=== PATIENT | female | born 1945 ===

== ENCOUNTER 2024-11-19 11:58 | Inpatient (IN) ==
[2024-11-19] MEDS ORDERED: SODIUM CHLORIDE 0.9% 50 ML IV PRN ×2 (12:41→12:50)
[2024-11-19] MEDS ORDERED: SODIUM CHLORIDE 0.9% 100 ML IV PRN ×2 (12:41→12:50)
[2024-11-19 12:47] LABS: Basophils # (auto) 0.07 K/uL (0.00-0.20); Basophils % (auto) 0.6 %; Eosinophils # (auto) 0.17 K/uL (0.00-0.50); Eosinophils % (auto) 1.6 %; Hematocrit (blood only) 23.4 % (37.0-47.0); Hemoglobin 7.2 g/dl (12.0-16.0); Immature Granulocytes # (auto) 0.04 K/uL (0.01-0.20); Immature Granulocytes % (auto) 0.4 %; Lymphocytes # (auto) 1.74 K/uL (1.20-3.40); Mean Corpuscular Hemoglobin 26.2 pg (25.0-34.0); Mean Corpuscular Hgb Conc 30.8 g/dL (32.0-36.0); Mean Corpuscular Volume 85.1 fL (80.0-100.0); Mean Platelet Volume 11.5 fL (9.4-12.4); Monocytes # (auto) 1.35 K/uL (0.11-0.59); Monocytes % (auto) 12.4 %; Neutrophils # (auto) 7.51 K/uL (1.40-6.50); Platelet Count 239 K/uL (130-400); RDW Coefficient of Variation 14.1 % (11.5-14.5); RDW Standard Deviation 43.5 fL (36.4-46.3); Red Blood Count 2.75 M/uL (4.20-5.40); White Blood Count 10.88 K/ul (4.8-10.8)
[2024-11-19 12:49] LABS: iSTAT Creatinine 1.3 mg/dl (0.6-1.3); iSTAT Hemoglobin 7.5 g/dl (12.0-16.0); iSTAT Ionized Calcium 1.11 mmol/l (1.12-1.32); iSTAT Potassium 3.5 mmol/L (3.3-5.0)
--- NOTE | 2024-11-19 12:49 | Emergency Department Note ---
Impression & Plan Dizziness, Acute GI bleeding, Weakness, Anemia, Heme positive stool, Anticoagulated on Coumadin ED Provider Note NAME: REBEKAH BORGES AGE: 79 SEX: F : 1945 ARRIVES VIA: Walk-In INFORMANT: [Patient][] ED PROVIDER(S): [Jim Desouza MD] CHIEF COMPLAINT: Rectal bleeding HISTORY OF PRESENT ILLNESS: The patient is an 79-year-old female with A-fib on warfarin who states that she has had symptoms for around 10 days in total. She initially went to the [facility] as her heart rate was a bit quick. She spent about 4 days at the hospital. At discharge, her hemoglobin was 8.2, INR was 6.4. The patient has been home for 3 days and has felt worse than when she went to the hospital. She is dizzy, she is weak, she is especially weak with exertion and short of breath with exertion. She states that she has had continued black discolored stools. She has been belching a lot. No chest pain, no abdominal pain or vomiting. No fever. The patient's grandson is a PA, the lab results from her discharge were reviewed by the grandson and there was concern because the hemoglobin was so low, they were referred to our ER. Of note, the patient states that yesterday, she had her INR checked outpatient and it was 4.7. She states that she has been holding her warfarin for the last 3 days. PMHx/PSHx/Social Hx: See Below PHYSICAL EXAM: GENERAL: Patient is in no acute distress. HEENT: No acute trauma, normocephalic atraumatic, mucous membranes moist, no nasal congestion. NECK: No stridor, no adenopathy, no meningismus, trachea is midline. LUNGS: Clear to auscultation bilaterally, no wheeze, no rhonchi, breath sounds equal. HEART: Without murmurs gallops or rubs, regular rate and rhythm. ABDOMEN: Soft, nontender, no peritonitis. EXTREMITIES: No cyanosis, full range of motion of all the joints without pain or difficulty. Mild bilateral pedal edema NEUROLOGIC: Oriented x 3, no acute motor or sensory deficits, no focal weakness. SKIN: No diaphoresis. Rectal: Black stool, strongly heme positive. DIFFERENTIAL DIAGNOSIS: GI bleeding, ulcer, anemia, coagulopathy, electrolyte imbalance, PR, among others. EMERGENCY DEPARTMENT PROCEDURES: MEDICAL DECISION MAKING: There is a very subtle anemia, this could be consistent with infection or just the stress of her situation. Hemoglobin was low at 7.2, this is below the value at her time of discharge from [facility]. There was a normal platelet count. INR was elevated at 2.8, consistent with the warfarin use. No electrolyte abnormality or concerning renal failure. No concerning liver enzyme elevation. No evidence for pancreatitis. ECG showed a sinus tachycardia, no obvious acute ischemia. Cardiac enzyme testing x 1 was not consistent with acute cardiac injury. Chest x-ray did not show CHF or pneumonia. On exam, the patient was mildly tachycardic. Rectal exam was performed, the stool was black and heme positive. Patient was aggressively managed given her presentation and findings. Patient was given a 500 cc saline bolus. She received IV vitamin K, IV Kcentra, IV Protonix and IV Zofran. I did discuss the case with our coagulation automotive internet sales consultant, vitamin K and Kcentra were felt appropriate. I spoke with the patient and her . The patient feels poorly because of her anemia, the anemia appears to be a result of GI bleeding. The GI bleeding has been made worse with her warfarin anticoagulation. The patient is in need of a hospital stay. I did have the patient sign consent for a blood transfusion. 1 unit of packed red blood cells was ordered for transfusion. I spoke with case management, the on-call hospitalist was consulted. Prior/Outside records/notes reviewed: [facility] outpatient notes from patient's recent hospitalization describing her findings and plan outpatient ECG per my interpretation: Indication was weakness. The ECG shows a sinus tachycardia with a rate of 104. There is a right bundle branch block. There is an old inferior infarct. There is no acute ST elevation, no PVCs. QTc is 512. Continuous Cardiac Monitoring per my interpretation: An order was placed for continuous cardiac monitoring. The monitor shows a rate of 101 with sinus tachycardia. Imaging/x-ray results per my interpretation: Chest x-ray shows elevation to the left hemidiaphragm, no CHF or pneumonia. Chronic Medical/Social conditions affecting care: Warfarin use, recent hospitalization, advanced age. Care/Management discussed with: Case management, the on-call hospitalist. Coagulation consult-Dr. Gallardo Level of care consideration(s): After review of the information above and other included data: --I believe the patient requires escalation of care to admission Critical Care Note: I have personally spent 54 minutes of critical care time in the direct management of this patient. This includes bedside care, interpretation of diagnostic studies, and testing, discussion with consultants, patient, and family members, and other required patient management activities. This 54 minutes is in excess of all separately billable procedures. DISPOSITION: Admission Past Med/Surg History Problem List Paroxysmal atrial fibrillation Acute gastrointestinal bleeding Acute blood loss anemia Vertebral artery stenosis Carotid artery stenosis SNHL (sensorineural hearing loss) Polyneuropathy Dysequilibrium Ataxia Decreased ROM of neck Neck pain PVD (peripheral vascular disease) Dizziness Gait disturbance Medical History History of gastroesophageal reflux (GERD) History of depression History of anxiety History of PR (myocardial infarction) History of diabetes mellitus History of stroke Heart attack Amputated toe Surgical History (Updated 02/15/23 @ 13:50 by Irma Mcdonald) S/P angioplasty with stent Mitral valve replaced Family History (Updated 02/15/23 @ 13:54 by Irma Mcdonald) Father Stroke Mother Heart disease Diabetes Sister Depression Anxiety Brother Diabetes Myocardial infarction Stroke Grandmother (Paternal) Dementia Anxiety Social History Smoking Status: Former smoker Tobacco Type: Cigarettes Cigarettes Per Day: 8/; Hx Alcohol Use: No Hx Substance Use: No Preferred Language: Maltese current occupational status: retired Feels Safe at Home: Yes Allergies Allergies Allergy/AdvReac Type Severity Reaction Status Date / Time sertraline [From Zoloft] Allergy Intermediate Nausea Verified 11/19/24 14:13 atorvastatin [From Lipitor] Allergy Unknown Muscle Pain Verified 11/19/24 14:13 azithromycin [From Zithromax] Allergy Unknown Nausea Verified 11/19/24 14:13 codeine Allergy Unknown Confusion Verified 11/19/24 14:13 gentamicin Allergy Unknown Verified 11/19/24 14:13 insulin detemir Allergy Unknown Anxiety Verified 11/19/24 14:13 [From Levemir U-100 Insulin] levofloxacin Allergy Unknown Verified 11/19/24 14:13 linezolid Allergy Unknown Verified 11/19/24 14:13 Sulfa (Sulfonamide Allergy Unknown Difficulty Verified 11/19/24 14:13 Antibiotics) Swallowing Penicillins Allergy Rash Verified 11/19/24 14:13 valium Allergy Unknown Unknown Uncoded 11/19/24 14:13 muscle relaxant AdvReac Severe Hallucinati Uncoded 11/19/24 14:13 ng Home Meds Home Medications Medication Instructions Recorded Confirmed furosemide 40 mg tablet 40 mg PO QAM 02/15/23 11/19/24 lorazepam 1 mg tablet See Rx Instructions .Route .COMPLEX 02/15/23 11/19/24 metoprolol succinate 25 mg 12.5 mg PO QAM 02/15/23 11/19/24 tablet,extended release 24 hr potassium chloride 10 mEq 10 meq PO BID 02/15/23 11/19/24 capsule,extended release warfarin 3 mg tablet (Jantoven) See Rx Instructions .Route .COMPLEX 02/15/23 11/19/24 insulin glargine 100 unit/mL (3 8 unit subcut QPM 02/19/23 11/19/24 mL) subcutaneous pen (Lantus Solostar U-100 Insulin) insulin lispro 100 unit/mL See Rx Instructions subcut .COMPLEX 02/19/23 11/19/24 subcutaneous pen (Humalog KwikPen (U-100) Insulin) aspirin 81 mg tablet,delayed 81 mg PO QAM 11/19/24 11/19/24 release lorazepam 0.5 mg tablet See Rx Instructions .Route .COMPLEX 11/19/24 11/19/24 warfarin 4 mg tablet See Rx Instructions .Route .COMPLEX 11/19/24 11/19/24 Results & Data (ED) Vital Signs Vital Signs - 24 hr 11/19/24 12:12 11/19/24 12:49 11/19/24 13:00 Temperature 36.5 C Temperature Source Temporal Artery Scan Pulse Rate 101 H 108 H 100 H Pulse Rhythm Pulse Strength Respiratory Rate 18 20 Respiratory Effort / Characteristics Non-Labored Spontaneous Respiratory Depth Normal Blood Pressure 116/55 L 147/67 H Blood Pressure Mean 75 105 Blood Pressure Position Pulse Oximetry 95 97 Oxygen Delivery Method Room Air Room Air Sepsis Recent Fever Within 48 Hours No Sepsis New/Unexplained Change in Mental Status N/A Sepsis Action Taken by Nursing No Action Required 11/19/24 13:53 11/19/24 14:19 11/19/24 14:35 Temperature 36.7 C 36.7 C Temperature Source Oral Oral Pulse Rate 95 H 101 H 97 H Pulse Rhythm Regular Pulse Strength Normal Respiratory Rate 20 16 18 Respiratory Effort / Characteristics Respiratory Depth Blood Pressure 130/93 130/93 142/75 H Blood Pressure Mean 107 105 97 Blood Pressure Position Lying Pulse Oximetry 97 97 95 Oxygen Delivery Method Room Air Sepsis Recent Fever Within 48 Hours Sepsis New/Unexplained Change in Mental Status Sepsis Action Taken by Nursing 11/19/24 14:50 Temperature 36.8 C Temperature Source Oral Pulse Rate 96 H Pulse Rhythm Pulse Strength Respiratory Rate 19 Respiratory Effort / Characteristics Respiratory Depth Blood Pressure 146/71 H Blood Pressure Mean 96 Blood Pressure Position Pulse Oximetry 97 Oxygen Delivery Method Sepsis Recent Fever Within 48 Hours Sepsis New/Unexplained Change in Mental Status Sepsis Action Taken by Jail Medications Current Medication List: was personally reviewed by me Laboratory Data Attestation: I reviewed the patient's lab results. 11/19/24 12:25 11/19/24 12:25 Lab Results 11/19/24 11/19/24 11/19/24 Range/Units 12:25 12:37 12:46 WBC 10.88 H (4.8-10.8) K/ul RBC 2.75 L (4.20-5.40) M/uL Hgb 7.2 L (12.0-16.0) g/dl POC Hgb 7.5 L (12.0-16.0) g/dl Hct 23.4 L (37.0-47.0) % POC Hct 22 L (37-47) % MCV 85.1 (80.0-100.0) fL MCH 26.2 (25.0-34.0) pg MCHC 30.8 L (32.0-36.0) g/dL RDW Std Deviation 43.5 (36.4-46.3) fL RDW Coeff of [place] 14.1 (11.5-14.5) % Plt Count 239 (130-400) K/uL MPV 11.5 (9.4-12.4) fL Immature Gran % (Auto) 0.4 % Neut % (Auto) 69.0 % Lymph % (Auto) 16.0 % [place] % (Auto) 12.4 % Eos % (Auto) 1.6 % Baso % (Auto) 0.6 % Neut # (Auto) 7.51 H (1.40-6.50) K/uL Lymph # (Auto) 1.74 (1.20-3.40) K/uL [place] # (Auto) 1.35 H (0.11-0.59) K/uL Eos # (Auto) 0.17 (0.00-0.50) K/uL Baso # (Auto) 0.07 (0.00-0.20) K/uL Immature Gran # (Auto) 0.04 (0.01-0.20) K/uL Polychromasia 1+ PT 27.6 H (9.0-12.0) Seconds INR 2.8 H (0.9-1.1) APTT 48 H (21-31) Seconds PTT Ratio 1.8 POC Sodium 137 (135-144) mmol/L Sodium 136 (136-145) mmol/L POC Potassium 3.5 (3.3-5.0) mmol/L Potassium 3.7 (3.5-5.1) mmol/L POC Chloride 100 L (101-112) mmol/L Chloride 101 (98-107) mmol/L Carbon Dioxide 27 (21-32) mmol/L POC Total CO2 25 (24-31) mmol/L Anion Gap 8 (3-11) POC Anion Gap 16.0 (16-25) mmol/L POC BUN 15 (7-18) mg/dl BUN 17 (6-23) mg/dl Creatinine 1.26 H (0.6-1.2) mg/dl POC Creatinine 1.3 (0.6-1.3) mg/dl Est Cr Clr Drug Dosing Not Reportable eGFR 43.16 BUN/Creatinine Ratio 13.5 (10-20) Glucose 200 H (70-99(Fasting)) mg/dl POC Glucose (other) 206 H (70-99) mg/dl Calcium 8.7 (8.6-10.3) mg/dl POC Ioniz Calcium Velia 1.11 L (1.12-1.32) mmol/l Total Bilirubin 0.4 (0.2-1.0) mg/dl AST 11 L (13-39) U/L ALT 7 (7-52) U/L Alkaline Phosphatase 96 (34-104) U/L Troponin I High Sens 12.9 (0-14) pg/ml Total Protein 7.4 (6.0-8.3) gm/dl Albumin 3.8 (3.4-5.0) gm/dl Globulin 3.6 (2.5-4.0) gm/dl Albumin/Globulin Ratio 1.1 (0.9-2) Lipase 46 (11-82) U/L Blood Type O Positive Blood Type Recheck O Positive Antibody Screen NEGATIVE Crossmatch See Detail Administered Medications Pantoprazole Sodium 40 mg/ (Dextrose) 100 mls @ 20 mls/hr IV Q5H SIM Stop: 12/19/24 13:59 Last Admin: 11/19/24 14:54 Dose: 8 mg/hr, 20 mls/hr Documented By: KAIDEN Discontinued Medications Sodium Chloride (Nss) 500 mls @ 999 mls/hr IV .Q31M ONE Stop: 11/19/24 13:11 Last Infusion: 11/19/24 14:07 Dose: Infused Documented By: Admin: 11/19/24 13:24 Dose: 999 mls/hr Documented By: KAIDEN Pantoprazole Sodium 80 mg/ (Dextrose) 120 mls @ 400 mls/hr IV NOW ONE Stop: 11/19/24 12:58 Last Infusion: 11/19/24 13:44 Dose: Infused Documented By: Admin: 11/19/24 13:24 Dose: 400 mls/hr Documented By: KAIDEN Phytonadione 10 mg/ Dextrose 51 mls @ 102 mls/hr IV ONE ONE Stop: 11/19/24 13:57 Last Infusion: 11/19/24 14:56 Dose: Infused Documented By: Admin: 11/19/24 14:23 Dose: 102 mls/hr Documented By: KAIDEN Prothrombin Complex Concent ( (Human) 2,000 units/ Syringe) 80 mls @ 10 mls/min IV TODAY@1345 ONE; Protocol Stop: 11/19/24 13:52 Last Admin: 11/19/24 13:47 Dose: 10 mls/min Documented By: KAIDEN Ondansetron HCl (Ondansetron Inj 2 Mg/Ml 2 Ml Vial) 4 mg IV NOW STA Stop: 11/19/24 13:30 Last Admin: 11/19/24 13:34 Dose: 4 mg Documented By: KAIDEN Imaging Data Radiologist's Impression: Chest X-Ray 11/19/24 12:24 XR chest 1V portable CLINICAL HISTORY: weak TECHNIQUE: Single frontal radiograph of the chest was obtained. Comparison: None available at the time of this dictation. FINDINGS: Median sternotomy wires are unchanged. Cardiomegaly is noted. The aortic arch is calcified. Elevation of the left hemidiaphragm is seen. No evidence of pleural effusion or pneumothorax. IMPRESSION: Elevation of the left hemidiaphragm is noted.. Cardiomegaly is noted. ACT 112: Negative or not required by law. Electronically signed by: Daniel Up M.D. 11/19/2024 1:22 PM Discharge Plan Visit Data Chief Complaint: Rectal Bleed Stated Complaint: RECTAL BLEEDING ED Provider: Jim Desouza Discharge Problem: Dizziness, Acute GI bleeding, Weakness, Anemia, Heme positive stool, Anticoagulated on Coumadin Patient Disposition: Admitted As Inpatient Condition: Serious Forms Stand Alone Forms: [facility] Prescriptions Prescriptions: No Action potassium chloride 10 mEq capsule, extended release 10 meq PO BID metoprolol succinate 25 mg tablet extended release 24 hr 12.5 mg PO QAM furosemide 40 mg tablet 40 mg PO QAM lorazepam 1 mg tablet See Rx Instructions .ROUTE .COMPLEX Rx Instructions: Take 0.5mg w/ 1mg to equal 1.5mg by mouth TID warfarin [Jantoven] 3 mg tablet See Rx Instructions .ROUTE .COMPLEX Rx Instructions: As of 11/19/24 medication is on hold, previously pt was taking 3mg by mouth /Wed/Wed/Sat/Sun insulin glargine [Lantus Solostar U-100 Insulin] 100 unit/mL (3 mL) insulin pen 8 unit subcut QPM insulin lispro [Humalog KwikPen Insulin] 100 unit/mL insulin pen See Rx Instructions subcut .COMPLEX Rx Instructions: use as directed warfarin 4 mg tablet See Rx Instructions .ROUTE .COMPLEX Rx Instructions: As of 11/19/24 medication is on hold, previously pt was taking 4mg by mouth Wednesday and lorazepam 0.5 mg tablet See Rx Instructions .ROUTE .COMPLEX Rx Instructions: Take 0.5mg w/ 1mg to equal 1.5mg by mouth TID aspirin 81 mg Tablet,Delayed Release (Dr/Ec) 81 mg PO QAM Referrals Referrals: Lottie Gaxiola MD [Outside Practitioners] - Discharge Problem: Anemia Qualifiers: Anemia type: unspecified type Qualified Code(s): D64.9 - Anemia, unspecified
[2024-11-19 12:59] LABS: Alanine Aminotransferase 7 U/L (7-52); Albumin Globulin Ratio 1.1 (0.9-2); Albumin Level 3.8 gm/dl (3.4-5.0); Alkaline Phosphatase 96 U/L (34-104); Anion Gap 8 (3-11); Aspartate Aminotransferase 11 U/L (13-39); BUN Creatinine Ratio 13.5 (10-20); Bilirubin,Total 0.4 mg/dl (0.2-1.0); Blood Urea Nitrogen 17 mg/dl (6-23); Calcium 8.7 mg/dl (8.6-10.3); Carbon Dioxide 27 mmol/L (21-32); Chloride 101 mmol/L (98-107); Globulin 3.6 gm/dl (2.5-4.0); Glucose 200 mg/dl (70-99(Fasting)); Lipase 46 U/L (11-82); Potassium 3.7 mmol/L (3.5-5.1); Sodium 136 mmol/L (136-145); Total Protein 7.4 gm/dl (6.0-8.3)
[2024-11-19 13:04] LABS: Polychromasia 1+
[2024-11-19 13:05] LABS: Troponin I High Sensitivity 12.9 pg/ml (0-14)
[2024-11-19 13:08] LABS: INR 2.8 (0.9-1.1); Partial Thromboplastin Ratio 1.8; Partial Thromboplastin Time 48 Seconds (21-31); Prothrombin Time 27.6 Seconds (9.0-12.0)
[2024-11-19] MEDS: PANTOprazole 80 MG in DEXTROSE 5% 100 ML IV ONE (13:24)
[2024-11-19] MEDS: SODIUM CHLORIDE 0.9% 500 ML IV ONE (13:24)
--- NOTE | 2024-11-19 13:24 | XRay Report ---
XR chest 1V portable CLINICAL HISTORY: weak TECHNIQUE: Single frontal radiograph of the chest was obtained. Comparison: None available at the time of this dictation. FINDINGS: Median sternotomy wires are unchanged. Cardiomegaly is noted. The aortic arch is calcified. Elevation of the left hemidiaphragm is seen. No evidence of pleural effusion or pneumothorax. IMPRESSION: Elevation of the left hemidiaphragm is noted.. Cardiomegaly is noted. ACT 112: Negative or not required by law. Electronically signed by: Daniel Up M.D. 11/19/2024 1:22 PM
[2024-11-19] MEDS: ONDANSETRON INJ 2 MG/ML 2 ML VIAL IV STA (13:34)
[2024-11-19] MEDS: KCENTRA (500unit vial) 2000 units IVP IV ONE (13:47)
--- NOTE | 2024-11-19 13:55 | History & Physical Report ---
Date of Service November 19, 2024 Assessment & Plan (1) Acute blood loss anemia: Plan: Hbg 7.2 on admission from drop 8.2 on Nov 16 with INR 6.2 at that time Transfuse 1 units packed RBCs and repeat H&H Transfuse aim > 7 Warfarin reversed in the ER with KCentra and vitamin K 10 mg IV, repeat INR in AM Hold aspirin (2) Acute gastrointestinal bleeding: Plan: Belching for 2 months, melena for 10 days Pantoprazole 80mg IV bolus then 8mg/hr drip Consult gastroenterology (3) Paroxysmal atrial fibrillation: Plan: Hold warfarin, consider DOAC once bleeding resolved (only reason this hasn't been changed in the past is patient reluctance Continue metoprolol succinate 12.5mg PO daily (4) Sinus tachycardia: Plan: Suspect she has a reflex tachycardia as previously on 50mg metoprolol succinate but stopped this shortly prior to her [place] visit, also somewhat due to her anemia. Will try to up titrate her metoprolol as able back to 50mg following blood transfusions and stabilizing her bleeding (5) Elevated hemidiaphragm: Plan: Unclear whether the raised hemidiaphragm is new but likely related to her prior cardiac surgery. Tommy (cardiology PA in [place]) will look for a prior CXR for comparison. If new consider CT chest with IV contrast to assess for phrenic nerve palsy. 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 Continue metoprolol with hold parameters VTE Prophylaxis - SCDs Diet - Clear liquids, NPO after midnight Disposition - admit to PCU Admission and Anticipated Discharge Date Admission Date: November 19, 2024 History of Present Illness Chief Complaint: Melena Primary Care Provider: LESLIE MORALES Hawa Ceja is an 79 year old female who presents to the ER with black stool for the past 10 days. History limited to patient recollection and discharge instructions from [place] as she is new to our system. She reports not worsening during the last 10 days. She has had severe associated belching for the last 2 months. She was hospitalized at [facility] in October with belching and chest pain and discharged on October 14 with pantoprazole and sucralfate. She was also started on amlodipine presumably for high BP. No records available on admission from this visit. She reports being somewhat compliant with pantoprazole but also thought this made her belching worse. She did not have any blood transfusions. She was hospitalized in [place] from November 14- for tachycardia and diagnosed with anxiety. She was started on Paxil for the anxiety although she reports never actually getting this in the hospital and she is yet to pick it up from the pharmacy as they do not have it in stock. She was previously on metoprolol succinate 50mg PO daily although her grandson says she has a propensity to stop medications when she thinks she is getting side effects from them. She was discharged on metoprolol 12.5mg PO daily from [place] although notably not being given this on her last day of admission due to hypotension. On day of discharge her hemoglobin was 8.2 and INR 6.4. She doesn't remember the anemia being addressed and on talking to her grandson who is a physician about still not feeling well and having this hemoglobin he advised her on going back to the hospital today. She reports her INR was 7.72 yesterday. She notes a history of needing blood transfusions at [facility] 3 years ago. She had upper and lower endoscopies at that time but no bleed was found. She thinks she was given 2 units of blood at that time. She also notes a history of heart failure for which she takes furosemide. She takes lorazepam chronically for anxiety. Trials of SSRIs in the past caused gastrointestinal side effects. Although she has done ok on paroxetine previously up until she went through withdrawal with it and trials of restarting previously led to worsening dizziness. The new medication is an extended release. She also has a chronic diabetic ulcer on her foot but reports this is improving. Her grandson notes historically her diabetes had been uncontrolled up until this last year. Under wound care in [place]. She takes warfarin for paroxysmal atrial fibrillation but no recent episodes. She takes aspirin for CAD with prior CABG in 2018 Allergies Allergy/AdvReac Type Severity Reaction Status Date / Time atorvastatin [From Lipitor] Allergy Unknown Muscle Pain Verified 11/19/24 14:13 diazepam [From Valium] Allergy Unknown Unknown Verified 11/19/24 22:40 gentamicin Allergy Unknown Unknown Verified 11/19/24 22:40 levofloxacin Allergy Unknown Unknown Verified 11/19/24 22:40 linezolid Allergy Unknown Unknown Verified 11/19/24 22:40 Sulfa (Sulfonamide Allergy Unknown Difficulty Verified 11/19/24 14:13 Antibiotics) Swallowing Penicillins Allergy Rash Verified 11/19/24 14:13 sertraline [From Zoloft] AdvReac Intermediate Nausea Verified 11/19/24 22:40 azithromycin [From Zithromax] AdvReac Unknown Nausea Verified 11/19/24 22:40 codeine AdvReac Unknown Confusion Verified 11/19/24 22:40 muscle relaxant AdvReac Severe Hallucinati Uncoded 11/19/24 14:13 ng Home Medications Medication Instructions Recorded Confirmed Type furosemide 40 mg tablet 40 mg PO QAM 02/15/23 11/19/24 History lorazepam 1 mg tablet See Rx Instructions .Route .COMPLEX 02/15/23 11/19/24 History metoprolol succinate 25 mg 12.5 mg PO QAM 02/15/23 11/19/24 History tablet,extended release 24 hr potassium chloride 10 mEq 10 meq PO BID 02/15/23 11/19/24 History capsule,extended release warfarin 3 mg tablet (Jantoven) See Rx Instructions .Route .COMPLEX 02/15/23 0 11/19/24 History insulin glargine 100 unit/mL (3 8 unit subcut QPM 02/19/23 11/19/24 History mL) subcutaneous pen (Lantus Solostar U-100 Insulin) insulin lispro 100 unit/mL See Rx Instructions subcut .COMPLEX 02/19/23 11/19/24 History subcutaneous pen (Humalog KwikPen (U-100) Insulin) aspirin 81 mg tablet,delayed 81 mg PO QAM 11/19/24 11/19/24 History release lorazepam 0.5 mg tablet See Rx Instructions .Route .COMPLEX 11/19/24 11/19/24 History warfarin 4 mg tablet See Rx Instructions .Route .COMPLEX 11/19/24 11/19/24 History Past Med/Surg History Problem List (Updated 11/19/24 @ 21:24 by Jared Oliver MD) Sinus tachycardia Non compliance with medical treatment Elevated hemidiaphragm Paroxysmal atrial fibrillation Acute gastrointestinal bleeding Acute blood loss anemia Vertebral artery stenosis Carotid artery stenosis SNHL (sensorineural hearing loss) Polyneuropathy Dysequilibrium Ataxia Decreased ROM of neck Neck pain PVD (peripheral vascular disease) Dizziness Gait disturbance Medical History History of gastroesophageal reflux (GERD) History of depression History of anxiety History of [place] (myocardial infarction) History of diabetes mellitus History of stroke Heart attack Amputated toe Surgical History (Updated 02/15/23 @ 13:50 by Irma Mcdonald) S/P angioplasty with stent Mitral valve replaced Family History (Updated 02/15/23 @ 13:54 by Irma Mcdonald) Father Stroke Mother Heart disease Diabetes Sister Depression Anxiety Brother Diabetes Myocardial infarction Stroke Grandmother (Paternal) Dementia Anxiety Social History Smoking Status: Current some day smoker Tobacco Type: Cigarettes Cigarettes Per Day: 8/; Hx Alcohol Use: No Hx Substance Use: No Preferred Language: [place]agu[place] Communication Ability: Effective Driller Portable Required: No Beliefs That Will Affect Care: None Current Living Situation: Spouse current occupational status: retired Feels Safe at Home: Yes Safety Concerns: Feels Safe At This Time Assistive Devices: Denture - Upper, Denture - Lower and Walker Review of Systems Review of Systems: All systems reviewed & are unremarkable except as noted in HPI & below Physical Exam Constitutional: WD/WN, vitals as above ENMT: external ear and nose normal, oropharynx normal Respiratory: normal respiratory effort, lungs clear to auscultation Cardiovascular: Rate/Rhythm: regular rhythm and + tachycardic Heart Sounds: no murmur Extremities: normal capillary refill; no calf tenderness and no pedal edema Gastrointestinal (Abdomen): Inspection/Auscultation: abdomen normal to inspection; abdomen not distended Percussion/Palpation: + abdomen tender (epigastric) and abdomen soft; no guarding and abdomen not rigid Musculoskeletal: no cyanosis or clubbing, extremities motor strength 5/5 Skin: no rashes, warm and dry Neurologic: moves all extremities and awake; not confused Psychiatric: A+Ox3, euthymic affect Results & Data Results & Data Vital Signs (Past 12 Hours) Vital Signs Temp Pulse Resp BP Pulse Ox O2 Del Method 11/19/24 13:00 100 H 20 147/67 H 97 Room Air 11/19/24 12:49 108 H 11/19/24 12:12 36.5 C 101 H 18 116/55 L 95 Room Air Laboratory Results Abnormal lab results 11/19/24 11/19/24 Range/Units 12:25 12:37 WBC 10.88 H (4.8-10.8) K/ul RBC 2.75 L (4.20-5.40) M/uL Hgb 7.2 L (12.0-16.0) g/dl POC Hgb 7.5 L (12.0-16.0) g/dl Hct 23.4 L (37.0-47.0) % POC Hct 22 L (37-47) % MCHC 30.8 L (32.0-36.0) g/dL Neut # (Auto) 7.51 H (1.40-6.50) K/uL Craven # (Auto) 1.35 H (0.11-0.59) K/uL PT 27.6 H (9.0-12.0) Seconds INR 2.8 H (0.9-1.1) APTT 48 H (21-31) Seconds POC Chloride 100 L (101-112) mmol/L Creatinine 1.26 H (0.6-1.2) mg/dl Glucose 200 H (70-99(Fasting)) mg/dl POC Glucose (other) 206 H (70-99) mg/dl POC Ioniz Calcium Velia 1.11 L (1.12-1.32) mmol/l AST 11 L (13-39) U/L Diagnostic Findings XR chest 1V portable CLINICAL HISTORY: weak TECHNIQUE: Single frontal radiograph of the chest was obtained. Comparison: None available at the time of this dictation. FINDINGS: Median sternotomy wires are unchanged. Cardiomegaly is noted. The aortic arch is calcified. Elevation of the left hemidiaphragm is seen. No evidence of pleural effusion or pneumothorax. IMPRESSION: Elevation of the left hemidiaphragm is noted.. Cardiomegaly is noted. Medications Administered ER Medications Given: Pantoprazole 80mg IV bolus Ondansetron 4mg IV Prothrombin complex 2000 units Vitamin K 10mg IV ECG Rate (beats per minute): 104 Rhythm: sinus tachycardia Findings: + RBBB Comparison ECG Date: no prior available Code Status & VTE Plan Code Status Full VTE Prophylaxis Plan VTE Prophylaxis will be ordered: Yes PG Care Time/CCT Total # of Minutes Spent Total Time Spent with Patient: Total time spent is greater than 50% in coordination of care (as documented) at patient's floor/unit and/or counseling patient: Coding Level of Care Code 18415 INT INP/OBS CARE 3/75MIN Diagnoses Acute blood loss anemia D62 Acute gastrointestinal bleeding K92.2 Paroxysmal atrial fibrillation I48.0 Sinus tachycardia R00.0 Elevated hemidiaphragm J98.6 Dysequilibrium R42 Non compliance with medical treatment Z91.199
[2024-11-19] MEDS: PHYTONADIONE 10 MG in DEXTROSE 5% 50 ML IV ONE (14:23)
[2024-11-19] MEDS: PANTOprazole 40 MG in DEXTROSE 5% MINI-B 100 ML IV SCH (14:54)
[2024-11-19] MEDS ORDERED: LORazepam 1 MG TAB PO SCH (15:59)
[2024-11-19] MEDS: LORazepam 0.5 MG TAB PO SCH (16:07)
[2024-11-19] MEDS: LORazepam 2 MG/1 ML VIAL IV STA (16:23)
[2024-11-19] MEDS: FAMOTIDINE 20MG IV PUSH 20 MG/5 ML SYR IV STA (18:51)
[2024-11-19] MEDS ORDERED: GLUCOSE 40% GEL 15 GM TUBE PO PRN (21:21)
[2024-11-19] MEDS ORDERED: PHARMACY GLYCEMIC MGMT CONSULT PRN (21:21)
[2024-11-19] MEDS ORDERED: GLUCOSE 10 TAB/TUBE PO PRN (21:21)
[2024-11-19] MEDS ORDERED: GLUCAGON FOR INJ 1 MG VIAL SQ PRN (21:21)
[2024-11-19] MEDS ORDERED: DEXTROSE 50% 50 ML SYRINGE IV PRN (21:21)
[2024-11-19] MEDS: POTASSIUM CHLORIDE 10 MEQ TABCR PO SCH (21:22)
[2024-11-19] MEDS: INSULIN ASPART PER UNIT CHARGE SC STA (21:59)
[2024-11-19] MEDS: LANTUS PER UNIT CHARGE SQ SCH (21:59)
[2024-11-19 22:00] LABS: Hematocrit (blood only) 23.7 % (37.0-47.0); Hemoglobin 7.5 g/dl (12.0-16.0)
[2024-11-19] MEDS: ALUMINUM/MAGNESIUM SUSP 30 ML UDC PO SCH (22:55)
--- NOTE | 2024-11-20 06:02 | Electrocardiogram Report ---
Test Reason : Blood Pressure : */* mmHG Vent. Rate : 104 BPM Atrial Rate : 104 BPM P-R Int : 124 ms QRS Dur : 144 ms QT Int : 390 ms P-R-T Axes : 66 -34 47 degrees QTcB Int : 512 ms Sinus tachycardia Left axis deviation Right bundle branch block Inferior infarct , age undetermined Abnormal ECG No previous ECGs available Confirmed by Justin Zapata ([id number]) on 11/20/2024 6:02:18 AM Referred By: REFERRED SELF Confirmed By: Justin Zapata
[2024-11-20] MEDS: INSULIN ASPART PER UNIT CHARGE SC SCH ×2 (08:47→23:41)
[2024-11-20 09:16] LABS: Hematocrit (blood only) 22.6 % (37.0-47.0); Hemoglobin 7.1 g/dl (12.0-16.0); Mean Corpuscular Hgb Conc 31.4 g/dL (32.0-36.0); Mean Corpuscular Volume 85.9 fL (80.0-100.0); Mean Platelet Volume 11.2 fL (9.4-12.4); Platelet Count 191 K/uL (130-400); RDW Coefficient of Variation 13.9 % (11.5-14.5); RDW Standard Deviation 43.8 fL (36.4-46.3); Red Blood Count 2.63 M/uL (4.20-5.40); White Blood Count 9.83 K/ul (4.8-10.8)
[2024-11-20 09:32] LABS: BUN Creatinine Ratio 8.5 (10-20); Calcium 7.8 mg/dl (8.6-10.3); Creatinine Clr Calc Pharmacy 32.3 ml/min
[2024-11-20 09:41] LABS: INR 1.1 (0.9-1.1); Prothrombin Time 11.4 Seconds (9.0-12.0)
--- NOTE | 2024-11-20 09:56 | Gastrointestinal Consultation ---
Date of Consultation November 20, 2024 Assessment & Plan (1) Acute gastrointestinal bleeding: Plan - patient is agreeable to having an EGD to further evaluate. - follow hgb/hct and transfuse as needed. - contineu with protonix drip. Supervising Physician Co-Signing Physician Notes Patient with melena on and off for at least a week or more. In the face of an elevated INR 6-7. Patient notes some dizziness and weakness though she states this is typical for her may be a little worse with this bleeding. Patient is INR is now corrected. She is for EGD today to evaluate source of bleeding. Differential includes peptic ulcer disease large hiatal hernia with Nolberto erosions. Upper GI or small bowel AVMs. At 79 neoplasia would be on the differential. Agree with notes above by PA. History of Present Illness Reason for Consultation: acute GI bleed Requesting Physician: Jared Oliver MD Attending Physician: Neal Alves, History of Present Illness Patient is an 79 year old female with a past medical history of a fib on coumadin, who presented to the ED on 11/19 with complaints of dizzinesss and black stool for the past 10 days. Patient had been in [facility] last week for 4 days but tells me nothing was done. She was reportedly discharged to home with a hgb of 8.2 and INR 6.4. she tells me that she had continued dizziness and was advised by her grandson to go back to the ED. Upon evaluation in the ED, she was found to have heme positive, dark stools. Hgb was 7.2 and INR was 2.8. she was given vit K and Kcentra and ordered for 1 unit PRBC. This morning, her INR was 1.1 and hgb 7.1. She reports continued dark stools. no nausea, vomiting, acid reflux, abdominal pain, or brbpr. she tells me that at home she was supposed to be using protonix but that she doesn't as she does not feel well when she takes this. no nsaids. She tells me her last colonoscopy and egd were done 2 years ago in [place] for anemia but these were unremarkable per patient. I do not have these reports. Allergies Allergy/AdvReac Type Severity Reaction Status Date / Time atorvastatin [From Lipitor] Allergy Unknown Muscle Pain Verified 11/19/24 14:13 diazepam [From Valium] Allergy Unknown Unknown Verified 11/19/24 22:40 gentamicin Allergy Unknown Unknown Verified 11/19/24 22:40 levofloxacin Allergy Unknown Unknown Verified 11/19/24 22:40 linezolid Allergy Unknown Unknown Verified 11/19/24 22:40 Sulfa (Sulfonamide Allergy Unknown Difficulty Verified 11/19/24 14:13 Antibiotics) Swallowing Penicillins Allergy Rash Verified 11/19/24 14:13 sertraline [From Zoloft] AdvReac Intermediate Nausea Verified 11/19/24 22:40 azithromycin [From Zithromax] AdvReac Unknown Nausea Verified 11/19/24 22:40 codeine AdvReac Unknown Confusion Verified 11/19/24 22:40 muscle relaxant AdvReac Severe Hallucinati Uncoded 11/19/24 14:13 ng Home Medications Medication Instructions Recorded Confirmed Type furosemide 40 mg tablet 40 mg PO QAM 02/15/23 11/19/24 History lorazepam 1 mg tablet See Rx Instructions .Route .COMPLEX 02/15/23 11/19/24 History metoprolol succinate 25 mg 12.5 mg PO QAM 02/15/23 11/19/24 History tablet,extended release 24 hr potassium chloride 10 mEq 10 meq PO BID 02/15/23 11/19/24 History capsule,extended release warfarin 3 mg tablet (Jantoven) See Rx Instructions .Route .COMPLEX 02/15/23 11/19/24 History insulin glargine 100 unit/mL (3 8 unit subcut QPM 02/19/23 11/19/24 History mL) subcutaneous pen (Lantus Solostar U-100 Insulin) insulin lispro 100 unit/mL See Rx Instructions subcut .COMPLEX 02/19/23 11/19/24 History subcutaneous pen (Humalog KwikPen (U-100) Insulin) aspirin 81 mg tablet,delayed 81 mg PO QAM 11/19/24 11/19/24 History release lorazepam 0.5 mg tablet See Rx Instructions .Route .COMPLEX 11/19/24 11/19/24 History warfarin 4 mg tablet See Rx Instructions .Route .COMPLEX 11/19/24 11/19/24 History Patient History Medical History (Updated 11/20/24 @ 14:00 by Luisito Quarles MD) Encounter for pre-operative examination Paroxysmal atrial fibrillation Acute blood loss anemia Carotid artery stenosis History of gastroesophageal reflux (GERD) History of depression History of anxiety History of [place] (myocardial infarction) History of diabetes mellitus History of stroke Heart attack Amputated toe Surgical History S/P angioplasty with stent Mitral valve replaced Family History Father Stroke Mother Heart disease Diabetes Sister Depression Anxiety Brother Diabetes Myocardial infarction Stroke Grandmother (Paternal) Dementia Anxiety Social History Smoking Status: Current some day smoker Tobacco Type: Cigarettes Cigarettes Per Day: 8/; Hx Alcohol Use: No Hx Substance Use: No Preferred Language: [place] Island[place] Communication Ability: Effective Health Care Specialist Required: No Beliefs That Will Affect Care: None Current Living Situation: Spouse current occupational status: retired Feels Safe at Home: Yes Safety Concerns: Feels Safe At This Time Assistive Devices: Walker and Wheelchair Review of Systems Review of Systems: All systems reviewed & are unremarkable except as noted in HPI & below Physical Exam Constitutional: WD/WN, vitals as above Respiratory: normal respiratory effort, lungs clear to auscultation Cardiovascular: Rate/Rhythm: regular rate and regular rhythm Gastrointestinal (Abdomen): normal bowel sounds, soft, nontender, no hepatosplenomegaly Psychiatric: Orientation: alert and oriented x 3 Affect: euthymic affect Results & Data Vital Signs (Past 12 Hours) Vital Signs Temp Pulse Pulse Resp BP Pulse Ox O2 Del Method 11/20/24 07:22 Nasal Cannula 11/20/24 06:58 100.2 F H 95 H 19 111/61 100 Nasal Cannula 11/20/24 03:15 98.6 F 115 H 19 96/48 L 87 L Room Air 11/20/24 00:07 111 H 11/20/24 00:06 98.1 F 115 H 19 145/69 H 93 Room Air O2 Flow Rate 11/20/24 07:22 2.5 11/20/24 06:58 3 11/20/24 03:15 11/20/24 00:07 11/20/24 00:06 Coding Level of Care Code 31680 INT INP/OBS CARE 2/55MIN Diagnoses Acute gastrointestinal bleeding K92.2
[2024-11-20 10:20] LABS: Estimated Average Glucose 183 mg/dl
[2024-11-20] MEDS: FAMOTIDINE 20MG IV PUSH 20 MG/5 ML SYR IV SCH (11:03)
--- NOTE | 2024-11-20 11:17 | Pharmacy Report ---
Pharmacy Glycemic Short Note 2 - Date of Service November 20, 2024 - Glycemic Short BSG Results (Last 24 hours): 11/19/24 11/19/24 11/19/24 12:25 12:37 15:54 Glucose 200 H POC Glucose 229 H POC Glucose (other) 206 H 11/19/24 11/19/24 11/20/24 21:03 21:04 06:57 Glucose POC Glucose 308 H* 308 H* 226 H POC Glucose (other) 11/20/24 11/20/24 08:57 11:00 Glucose 216 H POC Glucose 174 H POC Glucose (other) OUTPATIENT ANTIDIABETIC REGIMEN: * Lantus 8 units HS, Humalog SSI ASSESSMENT: * 79 year old admitted with GI bleed, plan for EGD today. Started on protonix drip. Pharmacy consulted for glycemic management. BSGs >300 last evening. Received total of 20 units of insulin yesterday, of which 8 units were basal insulin. Fasting BSG 226 mg/dL, anticipate BSGs to trend down today with ongoing NPO status. Will continue same parameters for now. PLAN FOR INPATIENT GLYCEMIC CONTROL: * Hold outpatient oral diabetes medications * Basal insulin * Lantus 8 units hs * Bolus insulin * NovoLog per scale ACHS or Q6hrs while NPO * Goal Range: Low 110 mg/dL - High 140 mg/dL * Correction Factor: 30 mg/dL/unit * Nutritional / Prandial insulin per carb ratio of 1 unit per 15 grams CHO consumed
--- NOTE | 2024-11-20 13:59 | Hospitalist Progress Note ---
Date of Service November 20, 2024 Assessment & Plan (1) Acute gastrointestinal bleeding: (2) Elevated hemidiaphragm: (3) Paroxysmal atrial fibrillation: (4) Acute blood loss anemia: Plan #Acute Gastrointestinal Bleeding #Acute Blood Loss Anemia #Elevated Hemidiaphragm - Belching x2 months + melena for 10days - Hb 7.2 on admission (decrease from 8.2 on 11/16), 7.5 (11/19 after 1 unit of pRBCs), 7.1 (11/20) -- Consider retransfusion if Hb <7 -- Repeated Hb + Hct serially - INR 6.4 (11/16), 7.72 (11/18), 2.8 (11/18 after warfarin reversal and IV vitamin K), 1.1 (11/20) - Hold aspirin and atorvastatin - Pantoprazole 80 mg IV bolus then 8 mg/hr drip -- Discontinue due to no gastric bleeding on EGD - Famotidine 20 mg IV BID -- Discontinued due to no gastric bleeding on EGD - Gastrology onboard -- EGD: 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 (which was cauterized); otherwise, unremarkable - Raised hemidiaphragm -- 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 -- May consider neoplasm; given unexplained weight loss (per above) - CT chest, CT abdomen (oral contrast) and CT pelvis #Possible Atypical Pneumonia - Intermittently febrile with bilateral rhonchus lung sounds - Blood cultures for potential bacteremia #Paroxysmal Atrial Fibrillation - Hold warfarin given possible EGD per GI - Consider DOAC (possible previous hesitancy to switch) - Continue metoprolol succinate 12.5 mg PO daily -- Consider titrated metroprolol back to 50 mg following Hb stabilization -- Consider non-compliance discussion (noted by grandson) #Chronic Conditions - Anxiety: continue home lorazepam and added paroxetine - Diabetes: continue home insulin regimen DVT Prophylaxis: SCD Dispo: Med Admission and Anticipated Discharge Date Admission Date: November 19, 2024 Supervising Physician Co-Signing Physician Notes I personally examined the patient and verified all eli points of history and exam, discussed case, and agree with decision making with Dr Middleton and Marion Bonner MS4 not much HPI review of systems obtainable from patientshe is fairly sleepy after EGD. Discussed the case with her and then later over the phone her grandsonall at the bedside. She has had GI bleeding issues and melena issues apparently for about a month, has been feeling a bit more short of breath may be hard to discern but probably for the last week or so, had a fever today, and has had about 30 pounds of involuntary weight loss over the last 6 months. Vitals noted, in general she is asleep awakens some but appears to be sedated post procedure. No distress. HEENT normocephalic atraumatic mucous membranes moist. Breathing mildly labored with scattered rhonchi. Skin without rashes pallor or icterus. Neuro without focal deficits. GI bleedinglikely AVM related compounded by Coumadin coagulopathy. Coumadin currently on hold/reversed. Continue to follow acute blood loss anemiahas been transfused 1 unit, currently hemodynamically stable, but certainly may require further transfusions depending on her hospital course. Discussed with Moise are quite suspicious AVMs plus coagulopathy was the culprit and did not see the need for a colonoscopy. Input greatly appreciated. As it relates to her bleed ing and atrial fibrillation, will likely need to consider switching to a DOAC given the shorter half-life and lesser probability of being supratherapeutic fever and oxygen requirementlungs somewhat rhonchorousoverall most consistent with a viral pneumonia, if this was the only problem, would do serial exams, supportive care, watchful waitingbut given that she also has about 30 pounds of involuntary weight loss that appears to have not had much of a workup previously, we will be getting a CT scan to evaluate for this which will also coincidentally shed more light on her lung findings Weight lossconcerning. CT chest, as well as abdomen pelvis. Depression/anxietyseems to underlie a lot of her decline, but certainly has a lot going on medically as well. Weakness/deconditioningPT/OT eval and treat atrial fibrillationrate overall controlled. Anticoagulation obviously on hold. In the long-term may need to restart, but as above noted, will need to discuss with patient/ in regards to possibly switching to a DOAC given shorter half-life and lesser probability of becoming supratherapeutic. Sandra Ceja was seen at bedside with Dr. Middleton. Ceja's main concern this morning was cough/congestion/needing oxygen. See states that at home is without oxygen, so she appeared concerned about the new oxygen use, which is explained as likely due to her anemia. Additionally, she mentioned that pantoprazole causes her to cough and sometime have congestion. Given the likely GI bleed, we discussed the propose of pantoprazole and that we will monitor her cough. This afternoon, we met, Roderick, her who gave us more history. He stated that she has been declining for the past few years. She has become "self- imprisoned" and is living mainly in one room of the house. He believes this to be due to her anxious depression, but could be due to declining health. She also mentioned that she has had a normal appetite and has lost ~20-30 pounds in the last six months. He expressed that she also has been dealing with a persistent foot ulcers likely due to diabetes, for which they follow a wound clinic in [place]. He was unsure if she has been having pulmonary issues previously. He notes that the black/tarry stools are new, but is not certain that this is the first occurrence. Otherwise, he has no futher questions, comments, or concerns, but did want his grandson David (cardiology PA) to be updated. Review of Systems Review of Systems: Per HPI Physical Exam Constitutional: Lying in bed sleeping In no apparent distress Respiratory: Bilateral rhonchi appreciated 2.5 L of oxygen via nasal canula Respiratory rate and effort appropriate Cardiovascular: Regular rate and rhythm No rubs, murmurs, or gallops S1 and S2 appreciated Musculoskeletal: Right foot missing the right hallux Left foot all toes present Results & Data Results & Data Vital Signs (Past 12 Hours) Vital Signs Temp Pulse Pulse Resp BP Pulse Ox O2 Del Method 11/20/24 11:09 101 H 11/20/24 11:01 38.0 C H 94 H 19 112/59 L 98 Nasal Cannula 11/20/24 07:22 Nasal Cannula 11/20/24 06:58 37.9 C H 95 H 19 111/61 100 Nasal Cannula 11/20/24 03:15 37.0 C 115 H 19 96/48 L 87 L Room Air O2 Flow Rate 11/20/24 11:09 11/20/24 11:01 2.5 11/20/24 07:22 2.5 11/20/24 06:58 3 11/20/24 03:15
--- NOTE | 2024-11-20 14:00 | Anesthesiology Consultation ---
Date of Service November 20, 2024 Assessment & Plan (1) Encounter for pre-operative examination: Chart Review Chart Review: Acceptable Risk for Surgery and Patient NOT seen in Pre Admission Testing Consults Requested none History Surgery Operation Date: 11/20/24 17:35 Proposed Procedures p Esophagogastroduodenoscopy Dr. Chuck Woods MD Height/Weight Height: 5 ft 5 in Weight: 75 kg Allergies Allergy/AdvReac Type Severity Reaction Status Date / Time atorvastatin [From Lipitor] Allergy Unknown Muscle Pain Verified 11/19/24 14:13 diazepam [From Valium] Allergy Unknown Unknown Verified 11/19/24 22:40 gentamicin Allergy Unknown Unknown Verified 11/19/24 22:40 levofloxacin Allergy Unknown Unknown Verified 11/19/24 22:40 linezolid Allergy Unknown Unknown Verified 11/19/24 22:40 Sulfa (Sulfonamide Allergy Unknown Difficulty Verified 11/19/24 14:13 Antibiotics) Swallowing Penicillins Allergy Rash Verified 11/19/24 14:13 sertraline [From Zoloft] AdvReac Intermediate Nausea Verified 11/19/24 22:40 azithromycin [From Zithromax] AdvReac Unknown Nausea Verified 11/19/24 22:40 codeine AdvReac Unknown Confusion Verified 11/19/24 22:40 muscle relaxant AdvReac Severe Hallucinati Uncoded 11/19/24 14:13 ng Medications Home Medications Medication Instructions Recorded Confirmed Last Taken furosemide 40 mg tablet 40 mg PO QAM 02/15/23 11/19/24 11/19/24 lorazepam 1 mg tablet See Rx Instructions .Route .COMPLEX 02/15/23 11/19/24 11/19/24 metoprolol succinate 25 mg 12.5 mg PO QAM 02/15/23 11/19/24 11/18/24 tablet,extended release 24 hr potassium chloride 10 mEq 10 meq PO BID 02/15/23 11/19/24 11/19/24 capsule,extended release warfarin 3 mg tablet (Jantoven) See Rx Instructions .Route .COMPLEX 02/15/23 11/19/24 4 Days Ago ~11/15/24 insulin glargine 100 unit/mL (3 8 unit subcut QPM 02/19/23 11/19/24 11/18/24 mL) subcutaneous pen (Lantus Solostar U-100 Insulin) insulin lispro 100 unit/mL See Rx Instructions subcut .COMPLEX 02/19/23 11/19/24 11/19/24 subcutaneous pen (Humalog KwikPen (U-100) Insulin) aspirin 81 mg tablet,delayed 81 mg PO QAM 11/19/24 11/19/24 11/19/24 release lorazepam 0.5 mg tablet See Rx Instructions .Route .COMPLEX 11/19/24 11/19/24 11/19/24 warfarin 4 mg tablet See Rx Instructions .Route .COMPLEX 11/19/24 11/19/24 4 Days Ago ~11/15/24 Active Medications Generic Name Dose Route Start Last Admin Trade Name Hemalq PRN Reason Stop Dose Admin Al Hydrox/Mg Hydrox/Simethicone 15 ml 11/19/24 22:30 11/19/24 22:55 Aluminum/Magnesium Susp 30 Ml Udc PO 12/19/24 22:29 15 ml Q6 SIM Administration Pantoprazole Sodium 40 mg/ 100 mls @ 20 mls/hr 11/19/24 14:00 11/20/24 10:26 Dextrose IV 12/19/24 13:59 8 mg/hr Q5H SIM 20 mls/hr Administration 8 MG/HR Famotidine 20 mg in 5 mls @ 2.5 mls/min 11/20/24 09:00 11/20/24 11:03 Pepcid 20mg Iv Push IV 12/20/24 08:59 2.5 mls/min Q12H SIM Administration Insulin Aspart 0 units 11/20/24 07:30 11/20/24 11:38 Insulin Aspart Per Unit Charge SC 12/20/24 07:29 2 units ACHS SIM Administration Insulin Glargine 8 units 11/19/24 21:00 11/19/24 21:59 Lantus Per Unit Charge SQ 12/19/24 20:59 8 units QPM SIM Administration Lorazepam 1.5 mg 11/19/24 15:59 11/19/24 21:22 Lorazepam 0.5 Mg Tab PO 12/19/24 15:58 1.5 mg TID SIM Administration Potassium Chloride 10 meq 11/19/24 21:00 11/19/24 21:22 Potassium Chloride 10 Meq Tabcr PO 12/19/24 20:59 10 meq BID SIM Administration Past Medical History Medical History (Updated 11/20/24 @ 14:00 by Luisito Quarles MD) Encounter for pre-operative examination Paroxysmal atrial fibrillation Acute blood loss anemia Carotid artery stenosis History of gastroesophageal reflux (GERD) History of depression History of anxiety History of MO (myocardial infarction) History of diabetes mellitus History of stroke Heart attack Amputated toe Exercise / Class Metabolic Activity II 4-5 Yardwork/Stairs/Walk up hill Past Family History Family History Father Stroke Mother Heart disease Diabetes Sister Depression Anxiety Brother Diabetes Myocardial infarction Stroke Grandmother (Paternal) Dementia Anxiety Past Surgical History Surgical History S/P angioplasty with stent Mitral valve replaced Social History Smoking Status: Current some day smoker Smoking cigarettes per day: 8/ Alcohol Use: No Hx Substance Use: No Physical Exam Vital Signs Last Vital Signs Temp 38.0 C H 11/20/24 11:01 Pulse 101 H 11/20/24 11:09 Resp 19 11/20/24 11:01 BP 112/59 L 11/20/24 11:01 Pulse Ox 98 11/20/24 11:01 O2 Del Method Nasal Cannula 11/20/24 11:01 O2 Flow Rate 2.5 11/20/24 11:01 Testing Laboratory Results 11/20/24 08:57 11/20/24 08:57 PT 11.4 Seconds (9.0-12.0) 11/20/24 08:57 INR 1.1 (0.9-1.1) 11/20/24 08:57 APTT 48 Seconds (21-31) H 11/19/24 12:25 Hemoglobin A1c 8.0 % (4.5-5.6) H 11/20/24 08:57 Blood Type O Positive 11/19/24 12:25 Antibody Screen NEGATIVE 11/19/24 12:25 11/19/24 13:31 Gram Stain - Final Foot,Left Aerobic and Anaerobic Culture - Preliminary Pin-point growth present, reincubating. 11/20/24 11/20/24 11:00 06:57 POC Glucose 174 H 226 H Electrocardiogram DICTATED BY: Justin Zapata MD Test Reason : Blood Pressure : */* mmHG Vent. Rate : 104 BPM Atrial Rate : 104 BPM P-R Int : 124 ms QRS Dur : 144 ms QT Int : 390 ms P-R-T Axes : 66 -34 47 degrees QTcB Int : 512 ms Sinus tachycardia Left axis deviation Right bundle branch block Inferior infarct , age undetermined Abnormal ECG No previous ECGs available Confirmed by Justin Zapata ([id number]) on 11/20/2024 6:02:18 AM Chest X-Ray Date: 11/19/24 XR chest 1V portable CLINICAL HISTORY: weak TECHNIQUE: Single frontal radiograph of the chest was obtained. Comparison: None available at the time of this dictation. FINDINGS: Median sternotomy wires are unchanged. Cardiomegaly is noted. The aortic arch is calcified. Elevation of the left hemidiaphragm is seen. No evidence of pleural effusion or pneumothorax. IMPRESSION: Elevation of the left hemidiaphragm is noted.. Cardiomegaly is noted.
--- NOTE | 2024-11-20 14:59 | GI REPORT ---
[facility] Patient: REBEKAH BORGES : 1945 Sex at : Female Age: 79 Years Procedure: Upper GI endoscopy Date: 11/20/2024 Attending Physician: Wyatt Woods MD Referring MD: Neal Alves Indications: - Iron deficiency anemia due to suspected upper gastrointestinal bleeding - Melena Medications: - Monitored Anesthesia Care Complications: - No immediate complications. Estimated Blood Loss: - Estimated blood loss was minimal. Procedure: - The EGD scope was introduced through the mouth and advanced to the third part of the duodenum. - The upper GI endoscopy was accomplished without difficulty. - The patient tolerated the procedure well. Findings: - The examined esophagus was normal. - One small angiodysplastic lesions with no bleeding were found on the lesser curvature of the stomach and in the cardia. Coagulation for bleeding prevention using bipolar probe was successful. Estimated blood loss was minimal. - The examined duodenum was normal. Impression: - Normal esophagus. 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 Treated with bipolar cautery. - Normal examined duodenum. - No specimens collected. - Single small AVM of the hide lesser curve cardia area. Though this could be a bleeding source specially with an INR of 6 or 7 I suspect it is not the only bleeding source. Scope was passed all the way to the third heart of the duodenum close to the ligament of Treitz. I could not identify any further AVMs in the upper GI tract. This would not exclude AVMs in the jejunum or ileum as a source for potential bleeding. At this point I would have her on a PPI. If Coumadin is required going forward I would resume in 48 to 72 hours once it is clear that her bleeding is settled and/or ceased. Recommendation: - See impression above Procedure Code(s): - 94200, Esophagogastroduodenoscopy, flexible, transoral; with control of bleeding, any method Diagnosis Code(s): - D50.9, Iron deficiency anemia, unspecified - K92.1, Melena (includes Hematochezia) - K31.819, Angiodysplasia of stomach and duodenum without bleeding CPT(R) - 202 copyright [employer]. All Rights Reserved. The CPT codes, CCI edits and ICD codes generated are intended as suggestions and were generated based on input data. These codes are preliminary and upon food photographer review may be revised to meet current compliance and payer requirements. The provider is responsible for the final determination of appropriate codes, and modifiers. Wyatt Woods MD This document has been electronically signed. Note Initiated:11/20/2024 Note Completed:11/20/2024 2:59 PM [id number]
--- NOTE | 2024-11-20 15:25 | Anesthesiology Progress Note ---
Date of Service November 20, 2024 Anesthesia Post Procedure Vital Signs Vital Signs: Temp Pulse Pulse Pulse Resp BP BP 11/20/24 15:11 99 H 16 105/70 11/20/24 14:56 100 H 16 129/59 L 11/20/24 14:22 90 11/20/24 13:59 37.2 C 87 16 118/54 L 11/20/24 11:09 101 H 11/20/24 11:01 38.0 C H 94 H 19 112/59 L 11/20/24 07:22 11/20/24 06:58 37.9 C H 95 H 19 111/61 11/20/24 03:15 37.0 C 115 H 19 96/48 L 11/20/24 00:07 111 H 11/20/24 00:06 36.7 C 115 H 19 145/69 H 11/19/24 19:44 36.7 C 106 H 18 126/64 11/19/24 19:41 11/19/24 16:48 36.2 C L 103 H 18 151/67 H 11/19/24 16:00 36.9 C 106 H 16 153/66 H 11/19/24 16:00 36.9 C 108 H 18 11/19/24 15:59 106 H BP Pulse Ox O2 Del Method O2 Flow Rate 11/20/24 15:11 97 Nasal Cannula 2 11/20/24 14:56 95 Nasal Cannula 2 11/20/24 14:22 11/20/24 13:59 97 Nasal Cannula 2 11/20/24 11:09 11/20/24 11:01 98 Nasal Cannula 2.5 11/20/24 07:22 Nasal Cannula 2.5 11/20/24 06:58 100 Nasal Cannula 3 11/20/24 03:15 87 L Room Air 11/20/24 00:07 11/20/24 00:06 93 Room Air 11/19/24 19:44 91 Room Air 11/19/24 19:41 Room Air 11/19/24 16:48 93 11/19/24 16:00 95 11/19/24 16:00 153/66 H 95 Room Air 11/19/24 15:59 Transfer of Care Handoff Completed per policy Notes Mental Status: alert / awake / arousable and participated in evaluation Patient Amnestic to Procedure: Yes Nausea / Vomiting: adequately controlled Pain: adequately controlled Airway Patency, RR, SpO2: stable & adequate BP & HR: stable & adequate Hydration State: stable & adequate Anesthetic Complications: no major complications apparent and Pt Satisfied with anesthetic care
[2024-11-20] MEDS: FUROSEMIDE 40 MG TAB PO SCH (16:40)
[2024-11-20] MEDS: METOPROLOL SUCC 25MG EXT REL TAB PO SCH (16:44)
--- NOTE | 2024-11-20 18:15 | Billing Data ---
Date of Service November 20, 2024 Coding Level of Care Code 15894 SUB INP/OBS CARE MIN
[2024-11-20] MEDS: DEXAMETHASONE SOD INJ 4 MG/ML VIAL ONE (19:12)
[2024-11-20] MEDS: PROPOFOL IV EMULSION 10 MG/ML 20 ML VIAL IV ONE (19:12)
[2024-11-20] MEDS: LIDOCAINE 2% 2 ML VIAL/AMP(20MG/ML) INFIL ONE (19:12)
[2024-11-20] MEDS: ONDANSETRON INJ 2 MG/ML 2 ML VIAL IV PRN (20:22)
[2024-11-20] MEDS: LANTUS PER UNIT CHARGE SQ SCH (22:01)
[2024-11-20] MEDS: ACETAMINOPHEN 325 MG TAB PO PRN (23:35)
--- NOTE | 2024-11-21 00:44 | CT Scan Report ---
Exam(s): CT CHEST Without Contrast EXAM: CT Chest Without Intravenous Contrast CLINICAL HISTORY: Reason for exam: fever, unexplained weight loss. TECHNIQUE: Axial computed tomography images of the chest without intravenous contrast. CTDI is 12 mGy and DLP is 765 mGy-cm. Automated exposure control was utilized for the study. A dose lowering technique was utilized adhering to the principles of ALARA. COMPARISON: No relevant prior studies available. FINDINGS: Lungs: Mild emphysematous changes in the lungs with small areas of peripheral honeycombing in the upper lobes. Bronchial wall thickening is present consistent with bronchitis. 1 cm density in the medial right lower lobe could represent metastasis or atelectasis. There is also an irregular nodule in the inferior aspect of the right lower lobe measuring 9 mm. Pleural space: Small left pleural effusion layering posteriorly measuring 2.2 cm. There is a small amount of adjacent compressive atelectasis in the left lower lobe. No pneumothorax. Heart: Previous CABG with mild cardiomegaly and severe coronary calcification. The mitral valve has been replaced. No pericardial effusion is seen. Mediastinum: Is an ill-defined mass in the medial left upper lung measuring approximately 7.5 cm abutting the mediastinum and hilum. There is occlusion of the left upper lobe bronchus and severe narrowing of the lingula bronchus. Bones/joints: Mild to moderate multilevel degenerative changes throughout the spine. No acute fracture or destructive bone lesion is identified. No dislocation. Soft tissues: Unremarkable. Vasculature: The thoracic aorta is mildly calcified but nondilated. There is no aneurysm. This is a noncontrast study. Lymph nodes: Unremarkable. No enlarged lymph nodes. IMPRESSION: 1. There is an ill-defined mass in the medial left upper lung measuring approximately 7.5 cm abutting the mediastinum and hilum. There is occlusion of the left upper lobe bronchus and severe narrowing of the lingula bronchus. 2. Mild emphysematous changes in the lungs with small areas of peripheral honeycombing in the upper lobes. Bronchial wall thickening is present consistent with bronchitis. 3. 1 cm density in the medial right lower lobe could represent metastasis or atelectasis. There is also an irregular nodule in the inferior aspect of the right lower lobe measuring 9 mm. 4. Small left pleural effusion layering posteriorly measuring 2.2 cm. There is a small amount of adjacent compressive atelectasis in the left lower lobe. Electronically signed by: Alan Blanco MD 11/21/24 00:43 AM
--- NOTE | 2024-11-21 00:48 | CT Scan Report ---
Exam(s): CT ABDOMEN + PELVIS With Contrast Oral - High Density Amt: 120 ML BARIUM EXAM: CT Abdomen and Pelvis With Intravenous Contrast CLINICAL HISTORY: Reason for exam: fever, unexplained weight loss. TECHNIQUE: Axial computed tomography images of the abdomen and pelvis with intravenous contrast. CTDI is 12 mGy and DLP is 765 mGy-cm. Automated exposure control was utilized for the study. A dose lowering technique was utilized adhering to the principles of ALARA. CONTRAST: Patient received 120 ML BARIUM of Oral - High Density contrast COMPARISON: No relevant prior studies available. FINDINGS: Lung bases: See below. Pleural space: Small pleural effusion mild left basilar atelectasis. ABDOMEN: Liver: Unremarkable. No mass. Gallbladder and bile ducts: Unremarkable. No calcified stones. No ductal dilation. Pancreas: Unremarkable. No mass. No ductal dilation. Spleen: Unremarkable. No splenomegaly. Adrenals: Unremarkable. No mass. Kidneys and ureters: Unremarkable. No solid mass. No hydronephrosis. Stomach and bowel: Unremarkable. No obstruction. No mucosal thickening. PELVIS: Appendix: No signs of acute appendicitis. Bowel loops are nondilated. No acute inflammatory changes are seen involving the bowel. Bladder: Unremarkable. No mass. Reproductive: Unremarkable as visualized. ABDOMEN and PELVIS: Intraperitoneal space: Unremarkable. No free air. No significant fluid collection. Bones/joints: Previous sternotomy with mitral valvuloplasty per the heart is enlarged. Mild multilevel degenerative changes throughout the spine. There are several Schmorl's nodes. No acute fracture or destructive bone lesion is identified. No dislocation. Soft tissues: There are 2 subcutaneous nodules in the left side of the abdomen measuring up to 1 cm. The larger is associated with slight skin thickening suggesting sebaceous cyst. The smaller is nonspecific. Vasculature: The abdominal aorta is mildly calcified but nondilated. This is a noncontrast study. Metallic stent in the common iliac arteries bilaterally. This is a noncontrast study. Lymph nodes: Unremarkable. No enlarged lymph nodes. IMPRESSION: No signs of acute appendicitis. Bowel loops are nondilated. No acute inflammatory changes are seen involving the bowel. No acute process is seen within the abdomen or pelvis. Electronically signed by: Alan Blanco MD 11/21/24 00:47 AM
[2024-11-21 01:28] LABS: Adenovirus PCR Not Detected (NotDetected); Bordetella parapertussis PCR Not Detected (NotDetected); Bordetella pertussis PCR Not Detected (NotDetected); Chlamydia pneumoniae PCR Not Detected (NotDetected); Coronavirus 229E PCR Not Detected (NotDetected); Coronavirus CoV-2 (COVID19)PCR Not Detected (NotDetected); Coronavirus HKU1 PCR Not Detected (NotDetected); Coronavirus NL63 PCR Not Detected (NotDetected); Coronavirus OC43PCR DETECTED (NotDetected); Human Metapneumovirus PCR Not Detected (NotDetected); Influenza A PCR Not Detected (NotDetected); Influenza B PCR Not Detected (NotDetected); Mycoplasma pneumoniae PCR Not Detected (NotDetected); Parainfluenza Virus 1 PCR Not Detected (NotDetected); Parainfluenza Virus 2 PCR Not Detected (NotDetected); Parainfluenza Virus 3 PCR Not Detected (NotDetected); Parainfluenza Virus 4 PCR Not Detected (NotDetected); Respiratory Syncytial VirusPCR Not Detected (NotDetected); Rhinovirus/Enterovirus PCR Not Detected (NotDetected)
[2024-11-21 06:52] LABS: Hematocrit (blood only) 22.2 % (37.0-47.0); Hemoglobin 6.8 g/dl (12.0-16.0); Mean Corpuscular Hemoglobin 26.9 pg (25.0-34.0); Mean Corpuscular Hgb Conc 30.6 g/dL (32.0-36.0); Mean Corpuscular Volume 87.7 fL (80.0-100.0); Mean Platelet Volume 11.7 fL (9.4-12.4); Platelet Count 180 K/uL (130-400); RDW Standard Deviation 44.8 fL (36.4-46.3); Red Blood Count 2.53 M/uL (4.20-5.40); White Blood Count 8.53 K/ul (4.8-10.8)
[2024-11-21] MEDS ORDERED: SODIUM CHLORIDE 0.9% 50 ML IV PRN (06:56)
[2024-11-21] MEDS ORDERED: SODIUM CHLORIDE 0.9% 100 ML IV PRN (06:56)
[2024-11-21 07:07] LABS: BUN Creatinine Ratio 9.2 (10-20); Calcium 8.2 mg/dl (8.6-10.3); Creatinine Clr Calc Pharmacy 32.3 ml/min; Potassium 4.3 mmol/L (3.5-5.1)
[2024-11-21 07:12] LABS: Basophils # (auto) 0.03 K/uL (0.00-0.20); Basophils % (auto) 0.4 %; Hypochromasia Present; Immature Granulocytes # (auto) 0.04 K/uL (0.01-0.20); Immature Granulocytes % (auto) 0.5 %; Lymphocytes % (auto) 8.2 %; Monocytes # (auto) 0.77 K/uL (0.11-0.59); Neutrophils # (auto) 6.99 K/uL (1.40-6.50); Neutrophils % (auto) 81.9 %; Polychromasia 1+
[2024-11-21] MEDS: LANTUS PER UNIT CHARGE SQ STA (08:35)
[2024-11-21 09:43] LABS: C Reactive Protein 11.24 mg/dl (0-0.5)
--- NOTE | 2024-11-21 10:44 | Gastroenterology Progress Note ---
Date of Service November 21, 2024 Assessment & Plan (1) Anemia: (2) Angiodysplasia of gastrointestinal tract: Plan Patient has had no further melena. hgb dropped only slightly. Her protonix drip was stopped and she admits to not tolerating PPIs. - continue with famotidine 20mg twice daily. - follow hgb/hct and transfuse as needed. - recommend pulmonary evaluation given lung findings on CT. Admission and Anticipated Discharge Date Admission Date: November 19, 2024 Supervising Physician Co-Signing Physician Notes No definite further bleeding. Single cauterized AVM of the high lesser curve could be a source of bleeding aggravated by high INR's. However further AVMs of the jejunum or ileum are not ruled out. If anticoagulation resumed observe for evidence of recurrent or further bleeding. Potential lung mass. GI signed off reconsult as needed Subjective no further dark stools - she tells me she has not moved her bowels since admission. s/p EGD yesterday showing an angiodysplastic lesion that was treated with bipolar cautery. hgb fell from 7.1 to 6.8 and she is being transfused. she denies nausea, vomiting, abdominal pain. CT abdomen and pelvis was unremarkable. however she had CT chest showing possible lung mass and possible metastasis. Review of Systems Review of Systems: All systems reviewed & are unremarkable except as noted in HPI & below Physical Exam Constitutional: WD/WN, vitals as above Respiratory: normal respiratory effort, lungs clear to auscultation Cardiovascular: Rate/Rhythm: regular rate and regular rhythm Gastrointestinal (Abdomen): normal bowel sounds, soft, nontender, no hepatosplenomegaly Psychiatric: Orientation: alert and oriented x 3 Results & Data Results & Data Vital Signs (Past 12 Hours) Vital Signs Temp Pulse Pulse Resp BP BP BP 11/21/24 08:43 93 H 18 134/68 11/21/24 08:13 97.9 F 86 17 131/70 11/21/24 07:58 98.2 F 89 16 125/66 11/21/24 07:39 98.2 F 86 14 113/66 11/21/24 07:09 98.4 F 82 17 114/64 11/21/24 04:40 90 11/21/24 04:21 97.7 F 82 18 98/55 L 11/20/24 23:06 100.6 F H 106 H 18 108/52 L Pulse Ox O2 Del Method O2 Flow Rate 11/21/24 08:43 99 2 11/21/24 08:13 98 2 11/21/24 07:58 97 2 11/21/24 07:39 98 2 11/21/24 07:09 100 Nasal Cannula 2 11/21/24 04:40 11/21/24 04:21 97 Nasal Cannula 2 11/20/24 23:06 91 Nasal Cannula 2.5 Coding Level of Care Code 30484 SUB INP/OBS CARE 12/02MIN Diagnoses Anemia D64.9 Angiodysplasia of gastrointestinal tract K55.20
[2024-11-21 13:25] LABS: Hematocrit (blood only) 25.2 % (37.0-47.0); Hemoglobin 7.9 g/dl (12.0-16.0)
--- NOTE | 2024-11-21 13:51 | Pharmacy Report ---
Pharmacy Glycemic Short Note 2 - Date of Service November 21, 2024 - Glycemic Short BSG Results (Last 24 hours): 11/20/24 11/20/24 11/20/24 13:54 14:39 16:34 Glucose POC Glucose 126 H 120 H 162 H 11/20/24 11/20/24 11/20/24 21:25 21:25 23:33 Glucose POC Glucose 323 H* 333 H* 319 H* 11/20/24 11/21/24 11/21/24 23:34 04:10 05:44 Glucose 255 H POC Glucose 310 H* 190 H 11/21/24 11/21/24 11/21/24 07:07 07:08 11:26 Glucose POC Glucose 305 H* 328 H* 206 H OUTPATIENT ANTIDIABETIC REGIMEN: * Lantus 8 units SC HS * Humalog SC AC - Carb ratio of 10 for breakfast and lunch and 19 for dinner * HbA1c: 8% (11/20/24) ASSESSMENT: 11/21: * Patient received 24 units of insulin yesterday, 5 of which was basal. BSGs were: [phone] mg/dL. * Fasting BSG this AM is elevated at 328 mg/dL. During endoscopy last evening, there was a vial of 4 mg IV Dexamethasone that was pulled from the [facility] and never returned. It is not documented as given by nursing but with significant increases in BSGs, believe this was administered during EGD. * Will tighten Novolog to reflect weight/stress of 3. Adding a one time basal dose of 5 units this AM and will increase HS basal dose to match home dose of 8 units. This is more than double the previous day's basal dose. Will reassess basal needs tomorrow AM as steroids start to wean off. 11/20: * 79 year old admitted with GI bleed, plan for EGD today. Started on protonix drip. Pharmacy consulted for glycemic management. BSGs >300 last evening. Received total of 20 units of insulin yesterday, of which 8 units were basal insulin. Fasting BSG 226 mg/dL, anticipate BSGs to trend down today with ongoing NPO status. Will continue same parameters for now. PLAN FOR INPATIENT GLYCEMIC CONTROL: * Basal insulin * Lantus 5 units SC AM x 1 * Lantus 8 units SC HS * Bolus insulin * NovoLog per scale ACHS or Q6hrs while NPO * Goal Range: Low 110 mg/dL - High 140 mg/dL * Correction Factor: 20 mg/dL/unit * Nutritional / Prandial insulin per carb ratio of 1 unit per 7 grams CHO consumed
--- NOTE | 2024-11-21 15:47 | Hospitalist Progress Note ---
Date of Service November 21, 2024 Assessment & Plan (1) Acute gastrointestinal bleeding: (2) Acute blood loss anemia: (3) Mass of left lung: (4) Atypical pneumonia: (5) Elevated hemidiaphragm: (6) Paroxysmal atrial fibrillation: Plan #Acute Gastrointestinal Bleeding #Acute Blood Loss Anemia - Belching x2 months + melena for 10 days - Hb 7.2 on admission (decrease from 8.2 on 11/16), -- Repeated Hb + Hct serially; consider transfusion Hb <7 -- received 1 unit of pRBCs; posttransfusion Hb 7.5 (11/19) -- received 1 unit of pRBCs; posttransfusion Hb 7.9 (11/21) - INR 6.4 (11/16), 7.72 (11/18), 2.8 (11/18 after warfarin reversal and IV vitamin K), 1.1 (11/20) - Hold aspirin and atorvastatin - Pantoprazole 80 mg IV bolus then 8 mg/hr drip (11/19 & D/Darryl 11/21) -- Discontinue due to no gastric bleeding on EGD - Famotidine 20 mg IV BID -- Discontinued due to no gastric bleeding on EGD (11/20 & D/Darryl 11/21) -- Added Famotidine 20 mg PO BID - Gastrology onboard -- EGD: 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 There is an ill-defined mass in the medial left upper lung measuring approximately 7.5 cm abutting the mediastinum and hilum. There is occlusion of the left upper lobe bronchus and severe narrowing of the lingula bronchus. 2. Mild emphysematous changes in the lungs with small areas of peripheral honeycombing in the upper lobes. Bronchial wall thickening is present consistent with bronchitis. 3. 1 cm density in the medial right lower lobe could represent metastasis or atelectasis. There is also an irregular nodule in the inferior aspect of the right lower lobe measuring 9 mm. 4. Small left pleural effusion layering posteriorly measuring 2.2 cm. There is a small amount of adjacent compressive atelectasis in the left lower lobe. - CT abdomen (oral contrast) + CT pelvis: unremarkable - Depending on patient preference, may consult pulmonology for a bronchoscopy with biopsy + iron panel #Atypical Pneumonia - Intermittently febrile with bilateral rhonchus lung sounds - Blood cultures: pending - Viral panel: (+) Coronavirus OC43 - Supportive care #Paroxysmal Atrial Fibrillation - Hold warfarin - Consider DOAC (possible previous hesitancy to switch) - Continue metoprolol succinate 12.5 mg PO daily -- Consider titrated metroprolol back to 50 mg following Hb stabilization -- Consider non-compliance discussion (noted by grandson) #Chronic Conditions - Anxiety: continue home lorazepam and added paroxetine - Diabetes: continue home insulin regimen DVT Prophylaxis: SCD Dispo: Med Admission and Anticipated Discharge Date Admission Date: November 19, 2024 Supervising Physician Co-Signing Physician Notes I personally examined the patient and verified all eli points of history and exam, discussed case, and agree with decision making with Dr Middleton and Marion Bonner MS4 more awake. No acute complaints. No bowel movementstherefore no melena. Tolerating p.o. well. Does not feel short of breath. Was able to walk with therapyfelt somewhat dizzy. Vitals noted, in general she is awake and alert pleasant no distress. HEENT normocephalic atraumatic mucous membranes moist. Breathing unlabored no accessory muscle use good effort. Skin without rashes pallor or icterus. Neuro without focal deficits. CT chest abdomen pelvis reviewed. Labs noted. Hemoglobin 6.8. GI bleeding with acute blood loss anemia requiring transfusion 2 units PRBC in the context of AVMs and Coumadin coagulopathyworking diagnosis of AVM/angioectasia exacerbated by coagulopathy is fittingbleeding seems to be slowing. Continue to follow closely. Discussed briefly the potential of risk/benefit of resuming anticoagulationdid not get into detail because of needing to discuss lung mass, but would favor resuming with a DOAC due to short half-life and far less probability of becoming floridly coagulopathic, obviously would need to follow hemoglobin closely. At the same time, obviously this will be a shared decision making with the patient and her family as well. For now need to hold anticoagulation. Lung massdiscussed with patient frankly but it is much detail as I could with the information I now have. Discussed probable routes of treatment versus a more hospice approach. After time in discussion with her family, she would at least like to proceed with a tissue diagnosisask pulmonary to evaluate for possible bronchoscopy/biopsy. otherwise as above Subjective Hawa was seen at bedside this afternoon with Roderick, Dr. Alves, and Dr. Lawrence. She was updated regarding the potential bleeding source that GI found during endoscopy, since she did not recall much of this conversation. She has not passed stool today, which is reassuring as blood is a potent laxative when in the GI system. We discussed her warfarin/atrial fibrillation and potentially swapping to a DOAC once we make sure her bleeding is stable. She was agreeable to this. We updated her regarding the pulmonary mass and next steps like a biopsy and treatment if she were interested. We were told about their daughter passing from small cell lung cancer in 2013 and her brother with bladder/kidney cancer who was being potentially treated with immune modulators who has no further treatment options and will likely pass away. Outside Hwaa's room, Roderick updated us that she was a 2 pack a day tobacco user for years and was fearing that lung cancer would be in her future. He also mentioned that her health has been a downward spiral for the past 2 years continuously in and out of the hospital and seeing many providers. He was reassured and comforted prior to our egress. We will be updated tomorrow regarding their plan for next steps. Review of Systems Review of Systems: Per HPI Physical Exam Constitutional: Lying comfortably in bed In no apparent distress Respiratory: Clear to ascultation bilaterally in the upper anterior lung henderson Nasal canula (2L) in place Conversational without shortness of breath No accessory respiratory muscle use appreciated Respiratory rate and effort appropriate Cardiovascular: Regular rate and rhythm No rubs, murmurs, or gallops appreciated S1 and S2 noted Results & Data Results & Data Vital Signs (Past 12 Hours) Vital Signs Temp Pulse Pulse Resp BP BP BP 11/21/24 14:52 36.9 C 87 16 109/59 L 11/21/24 11:30 36.8 C 86 18 104/68 11/21/24 10:43 36.9 C 86 18 128/74 11/21/24 09:43 36.9 C 87 18 118/73 11/21/24 08:43 93 H 18 134/68 11/21/24 08:13 36.6 C 86 17 131/70 11/21/24 07:58 36.8 C 89 16 125/66 11/21/24 07:39 36.8 C 86 14 113/66 11/21/24 07:09 36.9 C 82 17 114/64 11/21/24 04:40 90 11/21/24 04:21 36.5 C 82 18 98/55 L Pulse Ox O2 Del Method O2 Flow Rate 11/21/24 14:52 96 Nasal Cannula 2 11/21/24 11:30 98 Nasal Cannula 2 11/21/24 10:43 92 2 11/21/24 09:43 92 2 11/21/24 08:43 99 2 11/21/24 08:13 98 2 11/21/24 07:58 97 2 11/21/24 07:39 98 2 11/21/24 07:09 100 Nasal Cannula 2 11/21/24 04:40 11/21/24 04:21 97 Nasal Cannula 2
--- NOTE | 2024-11-21 17:50 | Billing Data ---
Date of Service November 21, 2024 Coding Level of Care Code 84678 SUB INP/OBS CARE 3MIN
[2024-11-21] MEDS: FAMOTIDINE 20 MG TAB PO SCH (20:46)
[2024-11-21] MEDS: LANTUS PER UNIT CHARGE SQ SCH (20:47)
--- NOTE | 2024-11-21 22:29 | Communication Note ---
Date of Service: November 21, 2023 Contacted by RN who stated patient was complaining of increased shortness of breath as well as fluttering in her chest without associated chest pain. On arrival to bedside, patient was found lying on her right side and seems to have some dyspnea with conversation plus some mild tachypnea. Patient states that she feels scared after being told earlier in the day that she may have cancer, and does endorse having some shortness of breath but denies having any chest pain or fluttering sensation in her chest at that time. Vital signs remarkable for elevated blood pressure with systolic in 170s and diastolic in 90s, as well as a heart rate that was ranging between 120s and 140s. On review of telemetry, seems to be sinus tachycardia. Also of note, patient with increased oxygen need with nasal cannula now being at 4 LPM due to oxygen saturations decreasing to high 80s while at 2 LPM. To my exam, patient with scattered rhonchi more pronounced on right lung henderson, and no wheezing appreciated. Heart auscultation with tachycardia but no rubs murmurs or gallops. Rest of exam unremarkable. Ordered EKG which showed sinus tachycardia. CBC with stable hemoglobin at 8.8, as well as leukocytosis of ~21 with neutrophilic predominance. Chest x-ray, to my interpretation, could be suggestive of edema. Differential included anxiety/panic, however given suboptimal response to Ativan x 1 this is less likely. Possible that shortness of breath could be related to pulmonary edema versus viral pneumonia, however, given possible malignancy in combination with anticoagulation that was held due to GI bleed, cannot fully rule out PE. Chest CTA deferred for now due to impacted renal function, however could consider VQ scan if think appropriate. Patient given Lasix 40 mg IV x 1, as well as Lopressor 5 mg IV for management of tachycardia with improvement in heart rate which is currently in the low 100s. Resident Activity Tracking Resident Involvement: Resident Care Provided Care Provided: Adult Hospital Medicine
[2024-11-21] MEDS: FUROSEMIDE 40 MG/4 ML VIAL IV ONE (23:02)
[2024-11-21] MEDS: METOPROLOL TARTRATE 1 MG/ML VIAL IV PRN (23:08)
[2024-11-21 23:38] LABS: Basophils # (auto) 0.03 K/uL (0.00-0.20); Basophils % (auto) 0.1 %; Eosinophils # (auto) 0.04 K/uL (0.00-0.50); Eosinophils % (auto) 0.2 %; Hematocrit (blood only) 28.4 % (37.0-47.0); Hemoglobin 8.8 g/dl (12.0-16.0); Immature Granulocytes # (auto) 0.19 K/uL (0.01-0.20); Immature Granulocytes % (auto) 0.9 %; Lymphocytes # (auto) 0.82 K/uL (1.20-3.40); Lymphocytes % (auto) 3.9 %; Mean Corpuscular Hemoglobin 27.2 pg (25.0-34.0); Mean Corpuscular Volume 87.9 fL (80.0-100.0); Mean Platelet Volume 11.4 fL (9.4-12.4); Monocytes # (auto) 2.11 K/uL (0.11-0.59); Neutrophils # (auto) 17.88 K/uL (1.40-6.50); Neutrophils % (auto) 84.9 %; Platelet Count 293 K/uL (130-400); RDW Coefficient of Variation 14.1 % (11.5-14.5); RDW Standard Deviation 45.2 fL (36.4-46.3); Red Blood Count 3.23 M/uL (4.20-5.40); White Blood Count 21.07 K/ul (4.8-10.8)
--- NOTE | 2024-11-22 01:03 | XRay Report ---
Exam(s): XR CXR 1 VIEW EXAM: XR Chest, 1 View CLINICAL HISTORY: Reason for exam: hypoxia. TECHNIQUE: Frontal view of the chest. COMPARISON: November 19, 2024 FINDINGS: Lungs: Prominent vascular and interstitial markings with perihilar and bibasilar hazy edema, increased since previous. Pleural space: Unremarkable. No pneumothorax. Heart: Moderate cardiomegaly with previous sternotomy and mitral valvuloplasty, unchanged. Mediastinum: Unremarkable. Normal mediastinal contour. Bones/joints: See above. Upper abdomen: 7 cm elevation of the left diaphragm, similar to previous. IMPRESSION: 1. Prominent vascular and interstitial markings with perihilar and bibasilar hazy edema, increased since previous. 2. 7 cm elevation of the left diaphragm, similar to previous. 3. Moderate cardiomegaly with previous sternotomy and mitral valvuloplasty, unchanged. Electronically signed by: Alan Blanco MD 11/22/24 01:02 AM
[2024-11-22] MEDS ORDERED: Nursing to Pharmacy Communication STA (06:01)
[2024-11-22] MEDS: INSULIN ASPART PER UNIT CHARGE SC ONE (06:09)
[2024-11-22 07:08] LABS: Hemoglobin 8.3 g/dl (12.0-16.0); Mean Corpuscular Hemoglobin 26.8 pg (25.0-34.0); Mean Corpuscular Hgb Conc 30.7 g/dL (32.0-36.0); Mean Corpuscular Volume 87.1 fL (80.0-100.0); Mean Platelet Volume 11.3 fL (9.4-12.4); Platelet Count 236 K/uL (130-400); RDW Coefficient of Variation 14.2 % (11.5-14.5); RDW Standard Deviation 44.5 fL (36.4-46.3); White Blood Count 15.22 K/ul (4.8-10.8)
[2024-11-22 07:33] LABS: BUN Creatinine Ratio 10.2 (10-20); Calcium 8.1 mg/dl (8.6-10.3); Potassium 3.9 mmol/L (3.5-5.1)
--- NOTE | 2024-11-22 08:33 | Pulmonary Consultation ---
Date of Consultation November 22, 2024 Assessment & Plan (1) Mass of left lung: CT chest concerning for large 7.5 cm at left upper lobe lesion abutting the mediastinum with associated occlusion of the LEFT upper lobe bronchus. Patient does have risk factors with greater than [id number] history of smoking. She also has had a 20 pound unintentional weight loss over the last 2 months. She has a brother with history of lung cancer without history of smoking and her daughter is a smoker with a history of lung cancer as well. That being said, it would make sense to empirically treat the patient for pneumonia process as an obstructive pneumonia could appear similarly as well. Will place the patient empirically on antibiotic coverage in the interim. I had a lengthy discussion with the patient and family member in the room discussed options moving forward including antibiotics with outpatient follow-up in 4 [address] scan and reassessment versus bronchoscopy with endobronchial ultrasound to be performed today so we could obtain tissue sampling. She is anxious about the potential for malignancy and would rather undergo procedure as soon as possible. We will arrange bronchoscopy in the operating room for later today. She has been n.p.o. tonight and should be ready. We will follow-up on pathology reports when available. (2) Wheezing: Patient with moderate wheezing throughout upper lung henderson. Reviewing her CT scan shows moderate emphysematous changes with focus to the periphery. Patient likely with degree of exacerbation of unrecognized/undiagnosed COPD. Will place the patient on nebulized therapies with attention to her propensity for tachycardia. Additionally, as discussed previously, will place the patient on course of antibiotics in the interim. (3) Tobacco abuse: Patient with greater than [id number] history of smoking. She has never undergone low-dose CT lung cancer screenings in the past. She is unaware of any prior CTs. Regardless, she would benefit from smoking cessation at this time. Plan Thank you for allowing us to participate in the care of this pleasant patient. Pulmonary medicine will continue to follow. History of Present Illness Reason for Consultation: new lung mass, eval for biopsy Requesting Physician: Dr. Alves Attending Physician: Neal Alves DO History of Present Illness Patient is an 79-year-old female recently admitted to this institution on 11/19/2024 in the setting of upper GI bleeding. She had had black stools for several days prior to arrival. The patient does take Coumadin which has been held for the last 4 to 5 days. During her evaluation while hospitalized, she was found to have a large 7.5 cm mass in the LEFT upper lung field abutting the mediastinum. There appears to be occlusion of the LEFT upper lobe bronchus as well. Patient noted to have peripheral emphysematous changes of the lung as well. Pulmonary medicine consulted for evaluation and management. Upon evaluation in room 2030, the patient is awake, alert, and oriented. Her significant other is present at bedside. The patient carries a greater than 53-[id number]-[id number] history of smoking. She is currently smoking 5 to 6 cigarettes a day. She has never had lung cancer screenings in the past. No prior diagnosis of asthma, recurrent bronchitis, pneumonia, or COPD. Significant family history as she does have a brother with lung cancer and a daughter with lung cancer as well. Patient reports a 20 pound weight loss in the last 2 months. There is not been changing her appetite. No night sweats or other beta symptoms. Allergies Allergy/AdvReac Type Severity Reaction Status Date / Time Sulfa (Sulfonamide Allergy Severe Difficulty Verified 11/22/24 09:29 Antibiotics) Swallowing atorvastatin [From Lipitor] Allergy Intermediate Muscle Pain Verified 11/22/24 09:29 Penicillins Allergy Intermediate Rash Verified 11/22/24 09:29 diazepam [From Valium] Allergy Unknown Unknown Verified 11/22/24 09:29 gentamicin Allergy Unknown Unknown Verified 11/22/24 09:29 levofloxacin Allergy Unknown Unknown Verified 11/22/24 09:29 linezolid Allergy Unknown Unknown Verified 11/22/24 09:29 azithromycin [From Zithromax] AdvReac Intermediate Nausea Verified 11/22/24 09:29 codeine AdvReac Intermediate Confusion Verified 11/22/24 09:29 sertraline [From Zoloft] AdvReac Intermediate Nausea Verified 11/22/24 09:29 muscle relaxant AdvReac Severe Hallucinati Uncoded 11/22/24 09:29 ng Home Medications Medication Instructions Recorded Confirmed Type furosemide 40 mg tablet 40 mg PO QAM 02/15/23 11/19/24 History lorazepam 1 mg tablet See Rx Instructions .Route .COMPLEX 02/15/23 11/19/24 History metoprolol succinate 25 mg 12.5 mg PO QAM 02/15/23 11/19/24 History tablet,extended release 24 hr potassium chloride 10 mEq 10 meq PO BID 02/15/23 11/19/24 History capsule,extended release warfarin 3 mg tablet (Jantoven) See Rx Instructions .Route .COMPLEX 02/15/23 11/19/24 History insulin glargine 100 unit/mL (3 8 unit subcut QPM 02/19/23 11/19/24 History mL) subcutaneous pen (Lantus Solostar U-100 Insulin) insulin lispro 100 unit/mL See Rx Instructions subcut .COMPLEX 02/19/23 11/19/24 History subcutaneous pen (Humalog KwikPen (U-100) Insulin) aspirin 81 mg tablet,delayed 81 mg PO QAM 11/19/24 11/19/24 History release lorazepam 0.5 mg tablet See Rx Instructions .Route .COMPLEX 11/19/24 11/19/24 History warfarin 4 mg tablet See Rx Instructions .Route .COMPLEX 11/19/24 11/19/24 History Patient History Medical History (Updated 11/22/24 @ 08:32 by Ignacio Mares PA-C) Encounter for pre-operative examination Paroxysmal atrial fibrillation Acute blood loss anemia Carotid artery stenosis History of gastroesophageal reflux (GERD) History of depression History of anxiety History of NH (myocardial infarction) History of diabetes mellitus History of stroke Heart attack Amputated toe Surgical History S/P angioplasty with stent Mitral valve replaced Family History Father Stroke Mother Heart disease Diabetes Sister Depression Anxiety Brother Diabetes Myocardial infarction Stroke Grandmother (Paternal) Dementia Anxiety Social History Smoking Status: Current some day smoker Tobacco Type: Cigarettes Cigarettes Per Day: 8/; Hx Alcohol Use: No Hx Substance Use: No Preferred Language: Senegalese Communication Ability: Effective Senior Analysis Specialist Required: No Beliefs That Will Affect Care: None Current Living Situation: Spouse current occupational status: retired Feels Safe at Home: Yes Safety Concerns: Feels Safe At This Time Assistive Devices: Walker and Wheelchair Review of Systems Review of Systems: A complete 10 point review of systems was reviewed with the patient with pertinent positives and negatives as per history of present illness. All else were negative. Physical Exam Physical Exam: VITAL SIGNS Vital signs and nursing notes were reviewed. GENERAL 79-year-old female appearing her stated age who is in no acute distress. Communicates well with provider and answers questions appropriately. SKIN Without rashes or lesions. NOSE Midline and without cyanosis. MOUTH/OROPHARYNX Without perioral cyanosis. NECK Neck with FROM. LUNGS Chest wall evaluation demonstrates normal chest wall A:P diameter. Auscultation reveals wheezes in the upper lung henderson bilaterally. CARDIAC RRR with S1/S2. No murmur, rubs, or gallops appreciated. ABDOMEN Abdominal inspection demonstrates an obese abdomen. BS normoactive all four quadrants. No tenderness, palpable masses, or ascites noted. EXTREMITIES Nail clubbing not present. No peripheral cyanosis. No pretibial edema present. PSYCH A&Ox3 and cooperates fully with examiner. Pt is very pleasant and interacts well with examiner. Results & Data Results & Data Vital Signs (Past 12 Hours) Vital Signs Temp Pulse Pulse Pulse Resp BP BP 11/22/24 07:45 37.7 C H 101 H 17 110/60 11/22/24 02:49 36.7 C 112 H 18 125/77 11/22/24 00:23 106 H 134/67 11/22/24 00:09 118 H 152/68 H 11/21/24 23:30 111 H 151/94 H 11/21/24 23:08 131 H 141/72 H 11/21/24 22:52 36.5 C 141 H 20 175/83 H 11/21/24 22:00 11/21/24 21:59 143 H 172/76 H 11/21/24 21:15 128 H 167/71 H 11/21/24 21:00 140 H 200/106 H Pulse Ox O2 Del Method O2 Flow Rate 11/22/24 07:45 100 Room Air 11/22/24 02:49 98 Nasal Cannula 11/22/24 00:23 11/22/24 00:09 11/21/24 23:30 11/21/24 23:08 11/21/24 22:52 94 Nasal Cannula 11/21/24 22:00 98 Nasal Cannula 5 11/21/24 21:59 77 L Nasal Cannula 2 11/21/24 21:15 11/21/24 21:00 PG Care Time/CCT Total # of Minutes Spent Total Time Spent with Patient: Total time spent is greater than 50% in coordination of care (as documented) at patient's floor/unit and/or counseling patient: Coding Level of Care Code 58008 INT INP/OBS CARE MIN Diagnoses Mass of left lung R91.8 Wheezing R06.2 Tobacco abuse Z72.0
[2024-11-22] MEDS ORDERED: PROPOFOL IV EMULSION 10 MG/ML 20 ML VIAL IV ONE (08:53)
[2024-11-22] MEDS ORDERED: fentaNYL citrate PF 100 MCG/2 ML VIAL ONE (08:54)
[2024-11-22] MEDS ORDERED: cefTRIAXone SODIUM 1,000 MG/50 ML BAG IV SCH ×2 (09:00)
[2024-11-22] MEDS ORDERED: MIDAZOLAM HCL 1 MG/ML 2ML VIAL ONE (09:00)
--- NOTE | 2024-11-22 09:02 | Anesthesiology Consultation ---
Date of Service November 22, 2024 Assessment & Plan (1) Encounter for pre-operative examination: Chart Review Chart Review: Acceptable Risk for Surgery and Patient NOT seen in Pre Admission Testing Consults Requested none History Surgery Operation Date: 11/20/24 17:35 Proposed Procedures p Esophagogastroduodenoscopy Dr. Woods - Wyatt Woods MD Operation Date: 11/22/24 07:00 Proposed Procedures p Endobronchial Ultrasound - Roger Canseco MD Height/Weight Height: 5 ft 5 in Weight: 75.3 kg Allergies Allergy/AdvReac Type Severity Reaction Status Date / Time atorvastatin [From Lipitor] Allergy Unknown Muscle Pain Verified 11/19/24 14:13 diazepam [From Valium] Allergy Unknown Unknown Verified 11/19/24 22:40 gentamicin Allergy Unknown Unknown Verified 11/19/24 22:40 levofloxacin Allergy Unknown Unknown Verified 11/19/24 22:40 linezolid Allergy Unknown Unknown Verified 11/19/24 22:40 Sulfa (Sulfonamide Allergy Unknown Difficulty Verified 11/19/24 14:13 Antibiotics) Swallowing Penicillins Allergy Rash Verified 11/19/24 14:13 sertraline [From Zoloft] AdvReac Intermediate Nausea Verified 11/19/24 22:40 azithromycin [From Zithromax] AdvReac Unknown Nausea Verified 11/19/24 22:40 codeine AdvReac Unknown Confusion Verified 11/19/24 22:40 muscle relaxant AdvReac Severe Hallucinati Uncoded 11/19/24 14:13 ng Medications Home Medications Medication Instructions Recorded Confirmed Last Taken furosemide 40 mg tablet 40 mg PO QAM 02/15/23 11/19/24 11/19/24 lorazepam 1 mg tablet See Rx Instructions .Route .COMPLEX 02/15/23 11/19/24 11/19/24 metoprolol succinate 25 mg 12.5 mg PO QAM 02/15/23 11/19/24 11/18/24 tablet,extended release 24 hr potassium chloride 10 mEq 10 meq PO BID 02/15/23 11/19/24 11/19/24 capsule,extended release warfarin 3 mg tablet (Jantoven) See Rx Instructions .Route .COMPLEX 02/15/23 11/19/24 4 Days Ago ~11/15/24 insulin glargine 100 unit/mL (3 8 unit subcut QPM 02/19/23 11/19/24 11/18/24 mL) subcutaneous pen (Lantus Solostar U-100 Insulin) insulin lispro 100 unit/mL See Rx Instructions subcut .COMPLEX 02/19/23 11/19/24 11/19/24 subcutaneous pen (Humalog KwikPen (U-100) Insulin) aspirin 81 mg tablet,delayed 81 mg PO QAM 11/19/24 11/19/24 11/19/24 release lorazepam 0.5 mg tablet See Rx Instructions .Route .COMPLEX 11/19/24 11/19/24 11/19/24 warfarin 4 mg tablet See Rx Instructions .Route .COMPLEX 11/19/24 11/19/24 4 Days Ago ~11/15/24 Active Medications Generic Name Dose Route Start Last Admin Trade Name Freq PRN Reason Stop Dose Admin Acetaminophen 650 mg 11/20/24 23:21 11/21/24 05:58 Acetaminophen 325 Mg Tab PO 12/20/24 23:20 650 mg Q4H PRN Administration Pain or Fever Al Hydrox/Mg Hydrox/Simethicone 15 ml 11/19/24 22:30 11/22/24 05:51 Aluminum/Magnesium Susp 30 Ml Udc PO 12/19/24 22:29 Not Given Q6 SIM Famotidine 20 mg 11/21/24 21:00 11/22/24 08:16 Famotidine 20 Mg Tab PO 12/21/24 20:59 20 mg BID SIM Administration Furosemide 40 mg 11/20/24 09:00 11/22/24 08:16 Furosemide 40 Mg Tab PO 12/20/24 08:59 40 mg QAM SIM Administration Insulin Glargine 8 units 11/21/24 21:00 11/21/24 20:47 Lantus Per Unit Charge SQ 12/20/24 20:59 8 units QPM SIM Administration Lorazepam 1.5 mg 11/19/24 15:59 11/22/24 08:18 Lorazepam 0.5 Mg Tab PO 12/19/24 15:58 1.5 mg TID SIM Administration Metoprolol Succinate 12.5 mg 11/20/24 09:00 11/22/24 08:16 Metoprolol Succ 25mg Ext Rel Tab PO 12/20/24 08:59 12.5 mg QAM SIM Administration Metoprolol Tartrate 5 mg 11/21/24 22:46 11/22/24 00:09 Metoprolol Tartrate 1 Mg/Ml Vial IV 12/21/24 22:45 5 mg Q5M PRN Administration Tachycardia >110 Ondansetron HCl 4 mg 11/19/24 22:23 11/20/24 20:22 Ondansetron Inj 2 Mg/Ml 2 Ml Vial IV 12/19/24 22:22 4 mg Q6H PRN Administration Nausea And Vomiting Potassium Chloride 10 meq 11/19/24 21:00 11/22/24 08:18 Potassium Chloride 10 Meq Tabcr PO 12/19/24 20:59 10 meq BID SIM Administration NPO Date Last Intake of Fluids: 11/20/24 Time Last Intake of Fluids: 06:00 Date Last Intake of Solids: 11/19/24 Time Last Intake of Solids: 18:00 Past Medical History Medical History (Updated 11/22/24 @ 08:32 by Ignacio Mares PA-C) Encounter for pre-operative examination Paroxysmal atrial fibrillation Acute blood loss anemia Carotid artery stenosis History of gastroesophageal reflux (GERD) History of depression History of anxiety History of [place] (myocardial infarction) History of diabetes mellitus History of stroke Heart attack Amputated toe Past Family History Family History Father Stroke Mother Heart disease Diabetes Sister Depression Anxiety Brother Diabetes Myocardial infarction Stroke Grandmother (Paternal) Dementia Anxiety Past Surgical History Surgical History S/P angioplasty with stent Mitral valve replaced Social History Smoking Status: Current some day smoker Smoking cigarettes per day: 8/ Alcohol Use: No Hx Substance Use: No Physical Exam Vital Signs Last Vital Signs Temp 99.9 F H 11/22/24 07:45 Pulse 101 H 11/22/24 07:45 Resp 17 11/22/24 07:45 BP 110/60 11/22/24 07:45 Pulse Ox 100 11/22/24 07:45 O2 Del Method Room Air 11/22/24 07:45 O2 Flow Rate 5 11/21/24 22:00 Testing Laboratory Results 11/22/24 06:37 11/22/24 06:37 PT 11.4 Seconds (9.0-12.0) 01/13/25 08:57 INR 1.1 (0.9-1.1) 11/20/24 08:57 APTT 48 Seconds (21-31) H 11/19/24 12:25 Hemoglobin A1c 8.0 % (4.5-5.6) H 11/20/24 08:57 Blood Type O Positive 11/19/24 12:25 Antibody Screen NEGATIVE 11/19/24 12:25 11/20/24 17:26 Aerobic Blood Culture - Preliminary Blood No growth in Aerobic bottle after 24 hours. Anaerobic Blood Culture - Preliminary No growth in Anaerobic bottle after 24 hours. 11/20/24 17:36 Aerobic Blood Culture - Preliminary Blood No growth in Aerobic bottle after 24 hours. Anaerobic Blood Culture - Preliminary No growth in Anaerobic bottle after 24 hours. 11/19/24 13:31 Gram Stain - Final Foot,Left Aerobic and Anaerobic Culture - Preliminary Coryne striatum/simulans grp 11/22/24 05:58 POC Glucose 170 H Electrocardiogram DICTATED BY: Justin Zapata MD Test Reason : Blood Pressure : */* mmHG Vent. Rate : 104 BPM Atrial Rate : 104 BPM P-R Int : 124 ms QRS Dur : 144 ms QT Int : 390 ms P-R-T Axes : 66 -34 47 degrees QTcB Int : 512 ms Sinus tachycardia Left axis deviation Right bundle branch block Inferior infarct , age undetermined Abnormal ECG No previous ECGs available Confirmed by Justin Zapata ([id number]) on 11/20/2024 6:02:18 AM Chest X-Ray Date: 11/19/24 XR chest 1V portable CLINICAL HISTORY: weak TECHNIQUE: Single frontal radiograph of the chest was obtained. Comparison: None available at the time of this dictation. FINDINGS: Median sternotomy wires are unchanged. Cardiomegaly is noted. The aortic arch is calcified. Elevation of the left hemidiaphragm is seen. No evidence of pleural effusion or pneumothorax. IMPRESSION: Elevation of the left hemidiaphragm is noted.. Cardiomegaly is noted.
[2024-11-22] MEDS ORDERED: ONDANSETRON INJ 2 MG/ML 2 ML VIAL IV PRN (09:03)
[2024-11-22] MEDS ORDERED: ATROPINE SULFATE 0.1 MG/ML 10ML SYR IV PRN (09:03)
[2024-11-22] MEDS ORDERED: ePHEDrine sulfate 50 MG/ML AMP IV PRN (09:03)
--- NOTE | 2024-11-22 09:30 | Hospitalist Progress Note ---
Date of Service November 22, 2024 Assessment & Plan (1) Acute gastrointestinal bleeding: (2) Acute blood loss anemia: (3) Mass of left lung: (4) Atypical pneumonia: (5) Elevated hemidiaphragm: (6) Paroxysmal atrial fibrillation: (7) Bacterial pneumonia: Plan #Acute Gastrointestinal Bleeding #Acute Blood Loss Anemia - Belching x2 months + melena for 10 days - Hb 7.2 on admission (decrease from 8.2 on 11/16), -- Repeated Hb + Hct serially; consider transfusion Hb <7 -- received 1 unit of pRBCs; posttransfusion Hb 7.5 (11/19) -- received 1 unit of pRBCs; posttransfusion Hb 7.9 (11/21) - INR 6.4 (11/16), 7.72 (11/18), 2.8 (11/18 after warfarin reversal and IV vitamin K), 1.1 (11/20) - Hold aspirin and atorvastatin - Pantoprazole 80 mg IV bolus then 8 mg/hr drip (11/19 & D/Darryl 11/21) -- Discontinue due to no gastric bleeding on EGD - Famotidine 20 mg IV BID -- Discontinued due to no gastric bleeding on EGD (11/20 & D/Darryl 11/21) -- Added Famotidine 20 mg PO BID - Gastrology onboard -- EGD: 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 There is an ill-defined mass in the medial left upper lung measuring approximately 7.5 cm abutting the mediastinum and hilum. There is occlusion of the left upper lobe bronchus and severe narrowing of the lingula bronchus. 2. Mild emphysematous changes in the lungs with small areas of peripheral honeycombing in the upper lobes. Bronchial wall thickening is present consistent with bronchitis. 3. 1 cm density in the medial right lower lobe could represent metastasis or atelectasis. There is also an irregular nodule in the inferior aspect of the right lower lobe measuring 9 mm. 4. Small left pleural effusion layering posteriorly measuring 2.2 cm. There is a small amount of adjacent compressive atelectasis in the left lower lobe. - CT abdomen (oral contrast) + CT pelvis: unremarkable - Pulmonary Consulted - Consented to bronchoscopy with biopsy: will follow results - delayed until likely 11/24 - Possible Bacterial Pneumonia: ceftriaxone 2000 mg IV QD + doxycycline 100 mg IV BID - Likely COPD: Ipratropium 0.5 mg nebulized QID; Budesonide 0.5 mg BID - Legionella Urine Antigen: ordered - MRSA Nares: Ordered - Sputum Culture and Stain: Ordered - Urinalysis with reflex microscopy: Ordered - Cardiology Consulted - Previously noted heart valve defects - Echo results: pending #Atypical Pneumonia - Intermittently febrile with bilateral rhonchus lung sounds - Blood cultures: negative - Viral panel: (+) Coronavirus OC43 - Supportive care #Paroxysmal Atrial Fibrillation - Hold warfarin - Consider DOAC (possible previous hesitancy to switch) - Continue metoprolol succinate 12.5 mg PO daily -- Consider titrated metroprolol back to 50 mg following Hb stabilization -- Consider non-compliance discussion (noted by grandson) #Chronic Conditions - Anxiety: continue home lorazepam and added paroxetine - Diabetes: continue home insulin regimen DVT Prophylaxis: SCD Dispo: Med Admission and Anticipated Discharge Date Admission Date: November 19, 2024 Supervising Physician Co-Signing Physician Notes I personally examined the patient and verified all eli points of history and exam, discussed case, and agree with decision making with Dr Middleton and Marion Bonner MS4 Seen several times today. Seems to be a bit more confusedasking to go back to her room and then realizing she is in her room. Seems to deny focal complaints just more restless and agitated. Updated at the bedside to the best my ability. [employer] input appreciated. Vitals noted, in general she seems to be comfortable but a little more easily confused no physical distress. HEENT normocephalic atraumatic mucous membranes moist. Cardio distant, lungs still with faint scattered rhonchi although a little bit more clear than before somewhat diminished air entry throughout no respiratory distress. Skin without rashes pallor or icterus. GI bleeding with acute blood loss anemia requiring transfusion 2 units PRBC in the context of AVMs and Coumadin coagulopathyworking diagnosis of AVM/angioectasia exacerbated by coagulopathy is fittingbleeding seems To have stopped. After her current situation and procedural potentials have passed,would favor resuming with a DOAC due to short half-life and far less probability of becoming floridly coagulopathic, obviously would need to follow hemoglobin closely. At the same time, obviously this will be a shared decision making with the patient and her family as well. For now need to hold anticoagulation. Lung mass CT findings were done in the context of 30 pounds of involuntary weight loss in an 79-year-old female with a long smoking history. The day of the CT as well as yesterday, she had no fevers, leukocytosis, or respiratory distressbut then oddly around 11 PM last night she had abrupt worsening of all of the above. I still certainly harbor concerns that the mass is malignant, but wonder if the new findings are due to a secondary pneumonia from mucous plugging/airway obstruction. Agree with antibiotics. Would definitely still greatly appreciate bronchoscopy for definitive diagnosis once possible. delirium/metabolic encephalopathyher mental state seems to be most consistent with a delirium at this time. Updated and tried to answer questions the best my ability. He relates that this has happened to her before when she is in the hospital, but he is also just overall overwhelmed. Tried to offer empathy, support, guidance, and coping strategies to the best I could. otherwise as above Sandra Shaikh was seen this morning at bedside after she underwent an echocardiogram and received a dose of lorazepam around that time. She states that she is tired and sleepy. When approaching her about the racing heart and shortness of breath last night, she redirected that she is more concerned about her appetite and thirst. We discussed being no oral intake prior to her bronchoscopy procedure, for which she asked if we were doing testing today. I reassured her that we will do the testing that she is willing/consented to undergo, and she reiterated that she was tired and sleepy making her unsure about what testing will happen. I redirected to the lung mass and trying to discern what it is. She appeared okay with this and the OR team began preppring [place]. Review of Systems Review of Systems: Per HPI Physical Exam Constitutional: Lying comfortably in bed. Tired-appearing In no apparent distress Respiratory: Lungs are diffusely rhoncherous Conversational without shortness of breath Respiratory rate and effort appropriate to situation Cardiovascular: Tachycardic No rubs, gallops, or murmurs appreciated S1 and S2 noted Results & Data Results & Data Vital Signs (Past 12 Hours) Vital Signs Temp Pulse Pulse Pulse Resp BP BP 11/22/24 07:45 37.7 C H 101 H 17 110/60 11/22/24 02:49 36.7 C 112 H 18 125/77 11/22/24 00:23 106 H 134/67 11/22/24 00:09 118 H 152/68 H 11/21/24 23:30 111 H 151/94 H 11/21/24 23:08 131 H 141/72 H 11/21/24 22:52 36.5 C 141 H 20 175/83 H 11/21/24 22:00 11/21/24 21:59 143 H 172/76 H 11/21/24 21:15 128 H 167/71 H Pulse Ox O2 Del Method O2 Flow Rate 11/22/24 07:45 100 Room Air 11/22/24 02:49 98 Nasal Cannula 11/22/24 00:23 11/22/24 00:09 11/21/24 23:30 11/21/24 23:08 11/21/24 22:52 94 Nasal Cannula 11/21/24 22:00 98 Nasal Cannula 5 11/21/24 21:59 77 L Nasal Cannula 2 11/21/24 21:15
[2024-11-22] MEDS ORDERED: Nursing to Pharmacy Communication SCH ×2 (09:45→20:30)
[2024-11-22] MEDS: LR 15ML/HR IV SCH (09:56)
[2024-11-22] MEDS: ACETAMINOPHEN 1000 MG/100 ML IV IV ONE (10:28)
[2024-11-22] MEDS: ACETAMINOPHEN 1,000 MG/100 ML VIAL IV PRN (10:28)
[2024-11-22] MEDS: cefTRIAXone SODIUM 2,000 MG/50 ML BAG IV SCH (10:52)
--- NOTE | 2024-11-22 11:15 | XCELERA ---
[id number]
--- NOTE | 2024-11-22 11:41 | Pharmacy Report ---
Pharmacy Glycemic Short Note 2 - Date of Service November 22, 2024 - Glycemic Short BSG Results (Last 24 hours): 11/21/24 11/21/24 11/22/24 16:27 20:15 05:58 Glucose POC Glucose 214 H 207 H 170 H 11/22/24 11/22/24 11/22/24 06:37 09:16 10:54 Glucose 151 H POC Glucose 123 H 132 H OUTPATIENT ANTIDIABETIC REGIMEN: * Lantus 8 units SC HS * Humalog SC AC - Carb ratio of 10 for breakfast and lunch and 19 for dinner * HbA1c: 8% (11/20/24) ASSESSMENT: 11/22: * Effects of dexamethasone administered 11/20 likely wearing off over the course of the day today. Patient now NPO * Will reduce Lantus and resume at home dose/regimen * Will loosen Novolog to weight-based moderate stress estimate, which is similar to home CHO ratio (except dinner). 11/21: * Patient received 24 units of insulin yesterday, 5 of which was basal. BSGs were: [phone] mg/dL. * Fasting BSG this AM is elevated at 328 mg/dL. During endoscopy last evening, there was a vial of 4 mg IV Dexamethasone that was pulled from the [facility] and never returned. It is not documented as given by nursing but with significant increases in BSGs, believe this was administered during EGD. * Will tighten Novolog to reflect weight/stress of 3. Adding a one time basal dose of 5 units this AM and will increase HS basal dose to match home dose of 8 units. This is more than double the previous day's basal dose. Will reassess basal needs tomorrow AM as steroids start to wean off. 11/20: * 79 year old admitted with GI bleed, plan for EGD today. Started on protonix drip. Pharmacy consulted for glycemic management. BSGs >300 last evening. Received total of 20 units of insulin yesterday, of which 8 units were basal insulin. Fasting BSG 226 mg/dL, anticipate BSGs to trend down today with ongoing NPO status. Will continue same parameters for now. PLAN FOR INPATIENT GLYCEMIC CONTROL: * Basal insulin * Lantus 8 units SC HS * Bolus insulin * NovoLog per scale ACHS or Q6hrs while NPO * Goal Range: Low 110 mg/dL - High 140 mg/dL * Correction Factor: 30 mg/dL/unit * Nutritional / Prandial insulin per carb ratio of 1 unit per 10 grams CHO consumed
--- NOTE | 2024-11-22 12:12 | Communication Note ---
Date of Service: November 22, 2024 Given findings concerning for possible sepsis with source including likely pneumonia, discussed with patient's , patient and patient's grandson ab out plans of care. We all agreed at this time to initiate empiric antibiotics and allow her to remain on antibiotics for a day or 2 and then reassess need for bronchoscopy later this week. Will also check MRSA screen, blood cultures, urine Legionella and urine cultures. Sputum cultures if able. Will also consult cardiology given wall motion abnormalities noted on echo and significantly elevated RVSP.
[2024-11-22] MEDS: DOXYCYCLINE HYCLATE 100 MG in DEXTROSE 5% MINI-B 100 ML IV SCH (12:13)
[2024-11-22] MEDS: INSULIN ASPART PER UNIT CHARGE SC SCH ×2 (13:07→20:43)
--- NOTE | 2024-11-22 13:52 | Cardiology Consultation ---
Date of Consultation November 22, 2024 Assessment & Plan (1) CAD (coronary artery disease): (2) S/P CABG x 2: (3) S/P coronary artery stent placement: (4) Tobacco abuse: (5) Paroxysmal atrial fibrillation: (6) Acute blood loss anemia: (7) S/P mitral valve repair: (8) Pulmonary hypertension: (9) Chronic heart failure with preserved ejection fraction: Plan ASSESSMENT/PLAN: 1. CAD s/p PCI and CABG x 2: Details of her revascularization are not known at the time of this note. Records have been requested from [facility]. No angina. Would resume aspirin 81 mg daily when safe from a GI standpoint. Continue beta-maria del rosario. Consider high intensity statin therapy. 2. Pulmonary hypertension: Etiology uncertain but she does not appear hypervolemic currently. She has emphysematous changes on CT and likely has COPD/emphysema. Also currently with pneumonia and potential malignancy (lung mass). Recommend evaluation as recommended by pulmonary. If in the future, further evaluation for pulmonary hypertension would help improve outcome/quality of life, could consider right heart catheterization. There is also potential that this is not a new finding. Records have been requested. She has had cardiac catheterizations in the past and this may have already been worked up by her primary cardiology team. 3. Mitral valve repair: Seems to be functioning appropriately without significant mitral regurgitation. SBE prophylaxis for dental procedures. 4. Chronic heart failure with preserved EF: She does not appear to be hypervolemic. Can continue usual outpatient dose of Lasix 40 mg daily. Low- sodium diet. Strict I's and O's. Daily weights. 5. Paroxysmal atrial fibrillation: Currently in sinus rhythm. Anticoagulation therapy has been placed on hold given significant GI bleed. Would consider resuming anticoagulation therapy if deemed safe from a GI/pulmonary standpoint, but likely after her bronchoscopy. Would consider Eliquis. Monitor CBC. 6. Regional wall motion abnormalities on echo: Not new based on outside echo report. Has history of UT. LV systolic function overall normal. 7. Tobacco abuse: Smoking cessation. 8. Peripheral arterial disease s/p bilateral lower extremity angioplasties: No reported claudication. Resume antiplatelet therapy when able. Follows with Dr. Zamora's group. 9. Acute blood loss anemia: GI bleed. As per GI and primary hospitalist service. 10. Disposition: Requested records as noted above. Although she has CAD, no angina and bronchoscopy appears to be important in helping diagnose etiology of her lung mass. Can proceed from a cardiology perspective, when deemed appropriate by pulmonology. She seems compensated from a heart failure perspective. Patient care communicated/discussed with Dr. Canseco of pulmonology. Patient care also communicated with primary hospitalist service, Dr. Alves. Thank you for allowing me to participate in the care of your patient. Please call for any other questions or concerns. Sincerely, Rodrigo Zapata M.D. History of Present Illness Reason for Consultation: "preop eval for bronch, wma" Requesting Physician: Dr. Canseco Attending Physician: Neal Alves, DO History of Present Illness Ms. Ceja is a pleasant 79-year-old female with a history significant for CAD s/p CABG x 2 (UT November 2017) and PCI, mitral valve repair, heart failure with preserved EF, type 2 diabetes, paroxysmal atrial fibrillation, carotid artery stenosis, GI bleed, hypertension and TIA. Her primary clinical cytogeneticist is Dr. Zamora in the [place] area. She was admitted here on 11/19/2024 with melena for the 10 days prior to presentation. While here she has undergone EGD on 11/20/2024 which reported a nonbleeding angiodysplastic lesion in the stomach. She received PRBC as her hemoglobin was as low as 6.8. Initial INR at outside facility was supratherapeutic (6.2 on 11/16/2024). She had received Kcentra and vitamin K. She was hospitalized in [place] on 11/14/2024 and discharged on 11/16/2024 for tachycardia according to records. Previous to that, she was hospitalized at [facility]. She recalls undergoing a transesophageal echo a few weeks ago as well as a myocardial perfusion study. She denies angina but does have shortness of breath. She takes a diuretic at home and her edema has resolved. She has lost 20 pounds in the past 3 to 4 months, but unclear if she lost 20 pounds of fluid as there is also now concern for malignancy based on CT of the lung. She has a reasonable appetite. She denies orthopnea. She reports having a fever initially and ill contacts at home. She has not had any further melena since here and denies hematochezia or hematuria. She denies syncope, near syncope, palpitations. She underwent CT imaging of the chest on 11/20/2024 which reported 7.5 cm left upper lung mass with occlusion of the left upper lobe bronchus and severe narrowing of the lingula bronchus. Mild emphysematous changes with bronchial wall thickening. There was another density in the medial right lower lobe which could represent metastatic disease or atelectasis per radiology. Pulmonology was consulted who recommended treatment for pneumonia and bronchoscopy. She has had the following studies/procedures: 1. Cardiac catheterization November 2017 [place]: Details not known but apparently received PCI in the setting of myocardial infarction. 2. CABG x 2 in 2018 [place]: Details not known. 3. Echo 11/22/2024 [facility]: Normal LV size. EF 55%. Severe hypokinesis of the inferolateral wall and basal anterolateral segments. Mild LVH. Mildly dilated RV with normal systolic function. Mild biatrial dilation. Mitral valve annuloplasty ring without significant stenosis. Mild MR. Mild to moderate TR. RVSP 61. Review of systems: As above. Family history: Noncontributory. Social history: Has smoked up to 1 pack/day but currently smoking approximately 4 cigarettes/day. No alcohol or drug abuse. Lives at home with her and adult granddaughter. Her , niece, and grandson were present at the bedside. Allergies Allergy/AdvReac Type Severity Reaction Status Date / Time Sulfa (Sulfonamide Allergy Severe Difficulty Verified 11/22/24 09:29 Antibiotics) Swallowing atorvastatin [From Lipitor] Allergy Intermediate Muscle Pain Verified 11/22/24 09:29 Penicillins Allergy Intermediate Rash Verified 11/22/24 09:29 diazepam [From Valium] Allergy Unknown Unknown Verified 11/22/24 09:29 gentamicin Allergy Unknown Unknown Verified 11/22/24 09:29 levofloxacin Allergy Unknown Unknown Verified 11/22/24 09:29 linezolid Allergy Unknown Unknown Verified 11/22/24 09:29 azithromycin [From Zithromax] AdvReac Intermediate Nausea Verified 11/22/24 09:29 codeine AdvReac Intermediate Confusion Verified 11/22/24 09:29 sertraline [From Zoloft] AdvReac Intermediate Nausea Verified 11/22/24 09:29 muscle relaxant AdvReac Severe Hallucinati Uncoded 11/22/24 09:29 ng Home Medications Medication Instructions Recorded Confirmed Type furosemide 40 mg tablet 40 mg PO QAM 02/15/23 11/19/24 History lorazepam 1 mg tablet See Rx Instructions .Route .COMPLEX 02/15/23 11/19/24 History metoprolol succinate 25 mg 12.5 mg PO QAM 02/15/23 11/19/24 History tablet,extended release 24 hr potassium chloride 10 mEq 10 meq PO BID 02/15/23 11/19/24 History capsule,extended release warfarin 3 mg tablet (Jantoven) See Rx Instructions .Route .COMPLEX 02/15/23 11/19/24 History insulin glargine 100 unit/mL (3 8 unit subcut QPM 02/19/23 11/19/24 History mL) subcutaneous pen (Lantus Solostar U-100 Insulin) insulin lispro 100 unit/mL See Rx Instructions subcut .COMPLEX 02/19/23 11/19/24 History subcutaneous pen (Humalog KwikPen (U-100) Insulin) aspirin 81 mg tablet,delayed 81 mg PO QAM 11/19/24 11/19/24 History release lorazepam 0.5 mg tablet See Rx Instructions .Route .COMPLEX 11/19/24 11/19/24 History warfarin 4 mg tablet See Rx Instructions .Route .COMPLEX 11/19/24 11/19/24 History Problem List (Updated 11/22/24 @ 16:13 by Justin Zapata MD) Chronic heart failure with preserved ejection fraction Pulmonary hypertension S/P mitral valve repair S/P coronary artery stent placement S/P CABG x 2 CAD (coronary artery disease) Bacterial pneumonia (Acute) Tobacco abuse Wheezing Atypical pneumonia (Acute) Mass of left lung (Acute) Angiodysplasia of gastrointestinal tract Anemia Sinus tachycardia Non compliance with medical treatment Elevated hemidiaphragm Acute gastrointestinal bleeding Vertebral artery stenosis SNHL (sensorineural hearing loss) Polyneuropathy Dysequilibrium Ataxia Decreased ROM of neck Neck pain PVD (peripheral vascular disease) Dizziness Gait disturbance Patient History Medical History (Updated 11/22/24 @ 16:13 by Justin Zapata MD) Encounter for pre-operative examination Paroxysmal atrial fibrillation Acute blood loss anemia Carotid artery stenosis History of gastroesophageal reflux (GERD) History of depression History of anxiety History of UT (myocardial infarction) History of diabetes mellitus History of stroke Heart attack Amputated toe Surgical History (Updated 11/22/24 @ 16:13 by Justin Zapata MD) S/P angioplasty with stent Family History Father Stroke Mother Heart disease Diabetes Sister Depression Anxiety Brother Diabetes Myocardial infarction Stroke Grandmother (Paternal) Dementia Anxiety Social History Smoking Status: Current some day smoker Tobacco Type: Cigarettes Cigarettes Per Day: 8/; Hx Alcohol Use: No Hx Substance Use: No Preferred Language: Tajik Communication Ability: Effective Pan Washer Required: No Beliefs That Will Affect Care: None Current Living Situation: Spouse current occupational status: retired Feels Safe at Home: Yes Safety Concerns: Feels Safe At This Time Assistive Devices: Walker and Wheelchair Physical Exam Physical Exam: Gen.: No acute distress. Alert. HEENT: Anicteric sclera. Neck: No JVD. No bruits. Normal carotid upstrokes bilaterally. Cardiac: Regular. Normal S1-S2. 1/6 systolic murmur. Pulmonary: Decreased breath sounds bilaterally, but otherwise clear to auscultation bilaterally without wheezes, rales, or rhonchi. Abdomen: Soft, nontender, nondistended, with normoactive bowel sounds. No bruits noted. Extremities: 2+ radial pulses bilaterally. No edema or cyanosis. Results & Data Vital Signs (Past 12 Hours) Vital Signs Temp Pulse Pulse Pulse Resp BP BP 11/22/24 10:58 37.8 C H 103 H 20 114/63 11/22/24 10:20 38.6 C H 11/22/24 09:29 37.4 C 103 H 18 110/53 L 11/22/24 08:00 109 H 11/22/24 08:00 11/22/24 07:45 37.7 C H 101 H 17 110/60 11/22/24 02:49 36.7 C 112 H 18 125/77 Pulse Ox O2 Del Method O2 Flow Rate 11/22/24 10:58 98 Nasal Cannula 2 11/22/24 10:20 11/22/24 09:29 100 Nasal Cannula 2 11/22/24 08:00 11/22/24 08:00 Nasal Cannula 3 11/22/24 07:45 100 Room Air 11/22/24 02:49 98 Nasal Cannula Intake & Output 11/20/24 11/21/24 11/22/24 11/23/24 06:59 06:59 06:59 06:59 Intake Total 1926.667 / 1926.667 711 / 711 836 / 836 250 / 250 Output Total 325 / 325 700 / 700 1650 / 1650 300 / 300 Balance 1601.667 / 1601.667 -814 / -814 -50 / -50 Weight 165 lb 5.547 oz 166 lb 3.657 oz 166 lb 0.129 oz 166 lb 0.129 oz Laboratory Results Laboratory Results - last 24 hr 11/21/24 11/21/24 11/21/24 16:27 20:15 23:03 WBC 21.07 H D RBC 3.23 L Hgb 8.8 L Hct 28.4 L MCV 87.9 MCH 27.2 MCHC 31.0 L RDW Std Deviation 45.2 RDW Coeff of Wayne 14.1 Plt Count 293 D MPV 11.4 Immature Gran % (Auto) 0.9 Neut % (Auto) 84.9 Lymph % (Auto) 3.9 Tucker % (Auto) 10.0 Eos % (Auto) 0.2 Baso % (Auto) 0.1 Neut # (Auto) 17.88 H Lymph # (Auto) 0.82 L Tucker # (Auto) 2.11 H Eos # (Auto) 0.04 Baso # (Auto) 0.03 Immature Gran # (Auto) 0.19 Sodium Potassium Chloride Carbon Dioxide Anion Gap BUN Creatinine Est Cr Clr Drug Dosing eGFR BUN/Creatinine Ratio Glucose POC Glucose 214 H 207 H Calcium Procalcitonin 11/22/24 11/22/24 11/22/24 05:58 06:37 09:16 WBC 15.22 H RBC 3.10 L Hgb 8.3 L Hct 27.0 L MCV 87.1 MCH 26.8 MCHC 30.7 L RDW Std Deviation 44.5 RDW Coeff of Wayne 14.2 Plt Count 236 MPV 11.3 Immature Gran % (Auto) Neut % (Auto) Lymph % (Auto) Tucker % (Auto) Eos % (Auto) Baso % (Auto) Neut # (Auto) Lymph # (Auto) Tucker # (Auto) Eos # (Auto) Baso # (Auto) Immature Gran # (Auto) Sodium 140 Potassium 3.9 Chloride 99 Carbon Dioxide 35 H Anion Gap 6 BUN 15 Creatinine 1.47 H Est Cr Clr Drug Dosing 31.0 eGFR 35.87 BUN/Creatinine Ratio 10.2 Glucose 151 H POC Glucose 170 H 123 H Calcium 8.1 L Procalcitonin 0.32 11/22/24 10:54 WBC RBC Hgb Hct MCV MCH MCHC RDW Std Deviation RDW Coeff of Wayne Plt Count MPV Immature Gran % (Auto) Neut % (Auto) Lymph % (Auto) Tucker % (Auto) Eos % (Auto) Baso % (Auto) Neut # (Auto) Lymph # (Auto) Tucker # (Auto) Eos # (Auto) Baso # (Auto) Immature Gran # (Auto) Sodium Potassium Chloride Carbon Dioxide Anion Gap BUN Creatinine Est Cr Clr Drug Dosing eGFR BUN/Creatinine Ratio Glucose POC Glucose 132 H Calcium Procalcitonin Diagnostic Findings Pulmonary consultation reviewed. Echo report reviewed as noted above in HPI. CT imaging reviewed as noted above in HPI. Telemetry personally reviewed: Sinus rhythm today. There was an episode of nonsustained SVT at 5:37 AM. History and physical report reviewed. Labs reviewed and notable for normal potassium, mildly abnormal but stable renal function, elevated A1c, nonelevated transaminase levels, leukocytosis, improved from yesterday, anemia. Blood cultures negative x 2 from 11/20/2024. Medications Administered Current Inpatient Medications Acetaminophen (Acetaminophen 325 Mg Tab) 650 mg PO Q4H PRN PRN Reason: Pain or Fever Stop: 12/20/24 23:20 Last Admin: 11/21/24 05:58 Dose: 650 mg Al Hydrox/Mg Hydrox/Simethicone (Aluminum/Magnesium Susp 30 Ml Udc) 15 ml PO Q6 SIM Stop: 12/19/24 22:29 Last Admin: 11/22/24 13:12 Dose: 15 ml Atropine Sulfate (Atropine Sulfate 0.1 Mg/Ml 10ml Syr) 0.5 mg IV Q1M PRN PRN Reason: PACU Use-HR<40 &/or Bradycardi Stop: 11/22/24 17:03 Budesonide (Budesonide 0.5 Mg/2 Ml Vial (Pulmicort)) 0.5 mg INH BIDR SIM Stop: 12/22/24 18:59 Dextrose (Dextrose 50% 50 Ml Syringe) 25 - 50 ml IV UD PRN; Protocol PRN Reason: Hypoglycemia Protocol Stop: 12/19/24 21:20 Ephedrine Sulfate (Ephedrine Sulfate 50 Mg/Ml Amp) 5 mg IV Q5M PRN PRN Reason: PACU Use Only-SBP<90 mmHg Stop: 11/22/24 17:03 Famotidine (Famotidine 20 Mg Tab) 20 mg PO BID SIM Stop: 12/21/24 20:59 Last Admin: 11/22/24 08:16 Dose: 20 mg Furosemide (Furosemide 40 Mg Tab) 40 mg PO QAM SIM Stop: 12/20/24 08:59 Last Admin: 11/22/24 08:16 Dose: 40 mg Glucagon (Glucagon For Inj 1 Mg Vial) 1 mg SQ UD PRN; Protocol PRN Reason: Hypoglycemia Protocol Stop: 12/19/24 21:20 Glucose (Glucose 40% Gel 15 Gm Tube) 15 - 30 gm PO UD PRN; Protocol PRN Reason: Hypoglycemia Protocol Stop: 12/19/24 21:20 Glucose (Glucose 10 Tab/Tube) 4 - 8 tab PO UD PRN; Protocol PRN Reason: Hypoglycemia Protocol Stop: 12/19/24 21:20 Doxycycline Hyclate 100 mg/ (Dextrose) 100 mls @ 50 mls/hr IV Q12H [facility] Stop: 11/27/24 08:59 Last Admin: 11/22/24 12:13 Dose: 50 mls/hr Ceftriaxone Sodium (Rocephin) 2,000 mg in 50 mls @ 100 mls/hr IV Q24H [facility] Stop: 11/27/24 09:14 Last Infusion: 11/22/24 12:25 Dose: Infused Lactated Ringer's (Lr) 1,000 mls @ 15 mls/hr IV .Q24H [facility] Stop: 11/23/24 05:59 Last Infusion: 11/22/24 10:20 Dose: 15 mls/hr Acetaminophen (Ofirmev) 1,000 mg in 100 mls @ 400 mls/hr IV Q8H PRN PRN Reason: Fever Stop: 11/25/24 10:19 Last Infusion: 11/22/24 11:13 Dose: Infused Insulin Aspart (Insulin Aspart Per Unit Charge) 0 units SC Q6 SIM Stop: 12/20/24 07:29 Last Admin: 11/22/24 13:07 Dose: Not Given Insulin Glargine (Lantus Per Unit Charge) 8 units SQ QPM [facility] Stop: 12/20/24 20:59 Last Admin: 11/21/24 20:47 Dose: 8 units Ipratropium Bowman (Ipratropium Bowman Neb Soln 0.02% 0.5mg/2.5ml Vial) 0.5 mg INH Q6R [facility] Stop: 12/22/24 12:59 Levalbuterol HCl (Levalbuterol 1.25 Mg/3 Ml Neb) 1.25 mg INH Q6R [facility] Stop: 12/22/24 12:59 Lorazepam (Lorazepam 0.5 Mg Tab) 1.5 mg PO TID [facility] Stop: 12/19/24 15:58 Last Admin: 11/22/24 13:12 Dose: 1.5 mg Metoprolol Succinate (Metoprolol Succ 25mg Ext Rel Tab) 12.5 mg PO QAM [facility] Stop: 12/20/24 08:59 Last Admin: 11/22/24 08:16 Dose: 12.5 mg Metoprolol Tartrate (Metoprolol Tartrate 1 Mg/Ml Vial) 5 mg IV Q5M PRN PRN Reason: Tachycardia >110 Stop: 12/21/24 22:45 Last Admin: 11/22/24 00:09 Dose: 5 mg Miscellaneous (Carbohydrates For Hypoglycemia ) 15 - 30 gm PO UD PRN PRN Reason: Hypoglycemia Protocol Stop: 12/19/24 21:20 Miscellaneous Information (Pharmacy Glycemic Mgmt Consult) 1 each N/A UD PRN; Protocol PRN Reason: Consult Stop: 12/19/24 21:20 Ondansetron HCl (Ondansetron Inj 2 Mg/Ml 2 Ml Vial) 4 mg IV Q6H PRN PRN Reason: Nausea And Vomiting Stop: 12/19/24 22:22 Last Admin: 11/20/24 20:22 Dose: 4 mg Ondansetron HCl (Ondansetron Inj 2 Mg/Ml 2 Ml Vial) 4 mg IV ONCE PRN PRN Reason: PACU Use Only-Nausea/Vomiting Stop: 11/22/24 17:03 Potassium Chloride (Potassium Chloride 10 Meq Tabcr) 10 meq PO BID [facility] Stop: 12/19/24 20:59 Last Admin: 11/22/24 08:18 Dose: 10 meq PG Care Time/CCT Total # of Minutes Spent Total Time Spent with Patient: Total time spent is greater than 50% in coordination of care (as documented) at patient's floor/unit and/or counseling patient: Coding Level of Care Code 00981 INT INP/OBS CARE 3/75MIN Diagnoses CAD (coronary artery disease) I25.10 S/P CABG x 2 Z95.1 S/P coronary artery stent placement Z95.5 Tobacco abuse Z72.0 Paroxysmal atrial fibrillation I48.0 Acute blood loss anemia D62 S/P mitral valve repair Z98.890 Pulmonary hypertension I27.20 Chronic heart failure with preserved ejection fraction I50.32
[2024-11-22 14:12] LABS: C Reactive Protein 10.53 mg/dl (0-0.5)
[2024-11-22] MEDS: IPRATROPIUM BROMIDE NEB SOLN 0.02% 0.5MG/2.5ML VIAL INH SCH (14:13)
[2024-11-22] MEDS: LEVALBUTEROL 1.25 MG/3 ML NEB INH SCH (14:13)
[2024-11-22] MEDS: SODIUM CHLORIDE 0.9% 500 ML IV SCH (16:03)
[2024-11-22 16:13] LABS: BUN Creatinine Ratio 10.2 (10-20); Calcium 7.6 mg/dl (8.6-10.3); Creatinine Clr Calc Pharmacy 27.3 ml/min; Potassium 3.6 mmol/L (3.5-5.1)
[2024-11-22 16:34] LABS: Appearance Urine Cloudy (Clear); Bacteria Urine Automated 1+ (None Seen); Bilirubin Urine Negative (Negative); Blood Urine Negative (Negative); Color Urine Yellow; Glucose Urine UA Negative (Negative); Ketones Urine Negative (Negative); Leukocyte Esterase Urine 2+ (Negative); Nitrite Urine Negative (Negative); Protein Urine Negative (Negative); RBC Urine Automated 0-2 /hpf (0-2); Specific Gravity Urine 1.011 (1.000-1.030); Urobilinogen Urine Negative (Negative); WBC Urine Automated >50 /hpf (0-5); pH Urine 5.5 (4.5-7.5)
--- NOTE | 2024-11-22 17:10 | Electrocardiogram Report ---
Test Reason : Blood Pressure : */* mmHG Vent. Rate : 88 BPM Atrial Rate : 88 BPM P-R Int : 132 ms QRS Dur : 146 ms QT Int : 428 ms P-R-T Axes : 88 -29 4 degrees QTcB Int : 517 ms Normal sinus rhythm Right bundle branch block Inferior infarct (cited on or before 19-Nov-2024) Abnormal ECG When compared with ECG of 19-Nov-2024 12:23, No significant change Confirmed by Justin Zapata ([id number]) on 11/22/2024 5:09:33 PM Referred By: REFERRED SELF Confirmed By: Justin Zapata
--- NOTE | 2024-11-22 17:47 | Billing Data ---
Date of Service November 22, 2024 Coding Level of Care Code 94850 SUB INP/OBS CARE 3MIN
[2024-11-22] MEDS: BUDESONIDE 0.5 MG/2 ML VIAL (PULMICORT) INH SCH (20:07)
[2024-11-23 06:49] LABS: Hemoglobin 7.8 g/dl (12.0-16.0); Mean Corpuscular Hemoglobin 27.2 pg (25.0-34.0); Mean Corpuscular Hgb Conc 31.2 g/dL (32.0-36.0); Mean Corpuscular Volume 87.1 fL (80.0-100.0); Mean Platelet Volume 11.5 fL (9.4-12.4); Platelet Count 224 K/uL (130-400); RDW Coefficient of Variation 14.4 % (11.5-14.5); RDW Standard Deviation 45.8 fL (36.4-46.3); Red Blood Count 2.87 M/uL (4.20-5.40); White Blood Count 9.28 K/ul (4.8-10.8)
[2024-11-23 07:21] LABS: BUN Creatinine Ratio 13.2 (10-20); C Reactive Protein 15.38 mg/dl (0-0.5); Creatinine Clr Calc Pharmacy 35.4 ml/min; Potassium 3.6 mmol/L (3.5-5.1)
--- NOTE | 2024-11-23 07:37 | Electrocardiogram Report ---
Test Reason : Blood Pressure : */* mmHG Vent. Rate : 137 BPM Atrial Rate : 137 BPM P-R Int : 120 ms QRS Dur : 140 ms QT Int : 320 ms P-R-T Axes : 70 -43 44 degrees QTcB Int : 483 ms Probable Sinus tachycardia Premature ventricular complexes Left axis deviation Right bundle branch block Inferior infarct (cited on or before 19-Nov-2024) Abnormal ECG When compared with ECG of 21-Nov-2024 08:00, Vent. rate has increased by 49 bpm Nonspecific T wave abnormality, improved in Inferior leads Inverted T waves have replaced nonspecific T wave abnormality in Anterior leads Confirmed by Justin Zapata ([id number]) on 11/23/2024 7:37:34 AM Referred By: REFERRED SELF Confirmed By: Justin Zapata
[2024-11-23] MEDS: SODIUM CHLORIDE 0.65% NA SOLN 45 ML (OCEAN) ONE (08:12)
[2024-11-23] MEDS: NYSTATIN POWDER 15GM BTL EXT SCH (08:16)
[2024-11-23 08:57] LABS: Thyroid Stimulating Hormone 1.03 uIu/ml (0.300-4.500)
--- NOTE | 2024-11-23 09:07 | Hospitalist Progress Note ---
Date of Service November 23, 2024 Assessment & Plan (1) Acute gastrointestinal bleeding: (2) Acute blood loss anemia: (3) Mass of left lung: (4) Aspiration pneumonia: (5) Aspiration pneumonitis: (6) Bacterial pneumonia: (7) Atypical pneumonia: (8) Delirium: (9) Elevated hemidiaphragm: (10) Paroxysmal atrial fibrillation: Plan #Acute Gastrointestinal Bleeding #Acute Blood Loss Anemia - Belching x2 months + melena for 10 days prior to ED arrival - Hb 7.2 on admission (decrease from 8.2 on 11/16), - Repeated Hb + Hct serially; consider transfusion Hb <7 - received 1 unit of pRBCs; posttransfusion Hb 7.5 (11/19) - received 1 unit of pRBCs; posttransfusion Hb 7.9 (11/21) - INR 6.4 (11/16), 7.72 (11/18), 2.8 (11/18 after warfarin reversal and IV vitamin K), 1.1 (11/20) - Hold aspirin and atorvastatin - Pantoprazole 80 mg IV bolus then 8 mg/hr drip (11/19 & D/Darryl 11/21) - Discontinue due to no gastric bleeding on EGD - Famotidine 20 mg IV BID - Discontinued due to no gastric bleeding on EGD (11/20 & D/Darryl 11/21) - Added Famotidine 20 mg PO BID (11/22) - Gastrology onboard - 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 Aspiration Pneumonia vs. 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 There is an ill-defined mass in the medial left upper lung measuring approximately 7.5 cm abutting the mediastinum and hilum. There is occlusion of the left upper lobe bronchus and severe narrowing of the lingula bronchus. 2. Mild emphysematous changes in the lungs with small areas of peripheral honeycombing in the upper lobes. Bronchial wall thickening is present consistent with bronchitis. 3. 1 cm density in the medial right lower lobe could represent metastasis or atelectasis. There is also an irregular nodule in the inferior aspect of the right lower lobe measuring 9 mm. 4. Small left pleural effusion layering posteriorly measuring 2.2 cm. There is a small amount of adjacent compressive atelectasis in the left lower lobe. - CT abdomen (oral contrast) + CT pelvis: unremarkable - Pulmonary Consulted - Consented to bronchoscopy with biopsy: will follow results - delayed until likely 11/24 - Possible Bacterial Pneumonia: ceftriaxone 2000 mg IV QD + doxycycline 100 mg IV BID - Likely COPD: Ipratropium 0.5 mg nebulized QID; Budesonide 0.5 mg BID - Legionella Urine Antigen: Pending - MRSA Nares: Negative - Sputum Culture and Stain: Stain - unremarkable; Culture - (preliminary) normal urbano - Urinalysis with reflex microscopy: notable for >50 WBCs, 2+ leukocyte esterase - Culture: pinpoint growth - reincubating (11/23) - WBC (peaked at 21 K on 11/21); WNL on 11/23 - Cardiology Consulted - Previously noted heart valve defects - Echo results: pending - Speech Therapy consulted for swallowing evaluation: pending - IV team consulted - Anterior-Posterior and Lateral CXR: 1. Prominent vascular and interstitial markings with perihilar and bibasilar hazy edema, increased since previous. 2. 7 cm elevation of the left diaphragm, similar to previous. 3. Moderate cardiomegaly with previous sternotomy and mitral valvuloplasty, unchanged. - Furosemide 20 mg IV given once - Albuterol/Ipratropium nebulized Q2Hr PRN #Delirium - Recurrent unorientated to the situation, time, or place - aware and advised on reorientation and distraction efforts - Likely to continue during admission and for weeks after discharge - Keep room lighting consistent to mirror circadian rhythm - Light in the morning - Dark in the night #Atypical Pneumonia - Intermittently febrile with bilateral rhonchus lung sounds - Blood cultures: negative - Viral panel: (+) Coronavirus OC43 - Supportive care #Paroxysmal Atrial Fibrillation - Hold warfarin - Consider DOAC (possible previous hesitancy to switch) - Continue metoprolol succinate 12.5 mg PO daily - Consider titrated metroprolol back to 50 mg following Hb stabilization - Consider non-compliance discussion (noted by grandson) #Chronic Conditions - Anxiety: continue home lorazepam and added paroxetine - Diabetes: continue home insulin regimen DVT Prophylaxis: SCD Dispo: Med Admission and Anticipated Discharge Date Admission Date: November 19, 2024 Supervising Physician Co-Signing Physician Notes I personally examined the patient and verified all eli points of history and exam, discussed case, and agree with decision making with Dr Middleton and Marion Bonner MS4 patient seen, also seen whenever pulmonary visited, and case discussed with pulmonary, and cardiology, as well as nursing. Not much of any meaningful HPI or review of systems obtainable given that the patient is fairly deliriousshe does loosely endorse shortness of breath, but it does not seem to be that bad. At the same time she is trying to eat. Vitals noted, in general she is confused and a bit restless, may be mild respiratory distress. I watched her discoordinated Bright try to eat, give her a small piece of fruit to follow her p.o. intake, and after she has some coughing, I removed the rest of her food until speech is able to see her. Her lungs sound fairly quiet with faint wheezing. Left more quiet than the right. Skin without rashes pallor or icterus. GI bleeding with acute blood loss anemia requiring transfusion 2 units PRBC in the context of AVMs and Coumadin coagulopathyworking diagnosis of AVM/angioectasia exacerbated by coagulopathy is fittingbleeding seems To have stopped. After her current situation and procedural potentials have passed,woul d favor resuming with a DOAC due to short half-life and far less probability of becoming floridly coagulopathic, obviously would need to follow hemoglobin closely. At the same time, obviously this will be a shared decision making with the patient and her family as well. For now need to hold anticoagulation. Fortunately, currently this problem appears to be stable Lung mass CT findings were done in the context of 30 pounds of involuntary weight loss in an 79-year-old female with a long smoking history. I suspect she also has an overlying infectioneither from mucous plugging, aspiration, or both. Continue antibiotics. Pulmonary edema put out almost 2 L after 20 of Lasixcontinue to follow clinically, may need additional Lasix depending on how she is doing. delirium/metabolic encephalopathyher mental state seems to be most consistent with a delirium at this time. Continuing to provide updates and direction for her . I do wonder if the delirium is some of what is driving her current dysphagia/aspiration risk. otherwise as above Sandra Shaikh was seen at bedside with Phil. Shaikh mentioned that she does not want to be transferred rooms again. She indicated that this move occurred during the night and she felt isolated/trapped. She also stated that she does not want to be here anymore. I spent time talking to Roderick. He stated that she was not moved last night, and does not know what she is talking about. He also stated that she does not know the day/time or place she is in, which was asked earlier and led to increased frustration of Hawa. He stated that she has been more nervous with the potential pneumonia and lung mass. I reassured both Hawa and Roderick that we are following her presentation and symptoms closely and working along side our specialty colleagues. Roderick stated that she has been having a higher rate rate compared to normal as he gestured to the vitals monitor, which he attributes to the increased stress and unknown aspects of the situation. He also stated that her breathing has appearred normal/non-labored. On leaving, Hawa again asked not to be placed back into the room she was in last night. I attempted reorientation, but this appeared not effective. From there, I reassured her that we will not place her back into that room. This afternoon, along with Dr. Alves and Dr. Middleton, we saw Hawa. She was attempting to eat lunch during this time. She was assisted with possible food aspiration. Food was moved away given possible aspiration. She was reoriented to the current circumstance. Review of Systems Review of Systems: Per HPI Physical Exam Constitutional: Lying in bed Appears anxious Respiratory: Lungs are rhoncherous bilaterally with more pronounced rhonchi on the right lung > left lung Respiratory rate and effort appropriate Conversational without shortness of breath Cardiovascular: Tachycardic S1 and S2 appreciated Could not discern rubs, murmurs, or gallops given tachycardia Results & Data Results & Data Vital Signs (Past 12 Hours) Vital Signs Temp Pulse Pulse Resp BP BP Pulse Ox 11/23/24 07:44 112 H 20 92 11/23/24 07:07 36.4 C L 117 H 19 138/79 91 11/23/24 07:00 104 H 11/23/24 02:50 37 C 106 H 18 130/60 99 11/23/24 00:00 11/22/24 22:46 37.3 C 113 H 20 118/47 L 97 O2 Del Method O2 Flow Rate 11/23/24 07:44 Nasal Cannula 2 11/23/24 07:07 Nasal Cannula 2 11/23/24 07:00 11/23/24 02:50 Nasal Cannula 11/23/24 00:00 Nasal Cannula 3 11/22/24 22:46 Nasal Cannula
[2024-11-23] MEDS ORDERED: ALBUT/IPRATROP 3MG/0.5MG NEB 3 ML VIAL NEB PRN (11:50)
[2024-11-23] MEDS: FUROSEMIDE INJ 20 MG/2 ML VIAL IV ONE (13:47)
--- NOTE | 2024-11-23 13:47 | XRay Report ---
XR chest 2V PA/lateral CLINICAL HISTORY: wheezy, desat TECHNIQUE: 2 views of the chest were obtained. Comparison: Comparison is made to chest radiograph 11/21/2024 FINDINGS: Median sternotomy wires are unchanged. Cardiomegaly is noted. There is prominence and cephalization o f the vasculature with Kulwant B lines seen. Small left pleural effusion is seen. IMPRESSION: 1. Cardiomegaly and moderate pulmonary edema. 2. Small left pleural effusion is seen. ACT 112: Negative or not required by law. Electronically signed by: Daniel Up M.D. 11/23/2024 1:45 PM
--- NOTE | 2024-11-23 15:39 | Pulmonology Progress Note ---
Date of Service November 23, 2024 Assessment & Plan (1) Mass of left lung: (2) Wheezing: (3) Tobacco abuse: (4) Aspiration pneumonia: (5) Pulmonary hypertension: Plan Patient with worsening encephalopathy and continued fevers. Cultures negative thus far. Given increasing hypoxemia, chest x-ray was ordered which was largely stable compared to prior with perhaps a mild element of pulmonary edema. Agree with diuresis. Antibiotic regimen escalated from ceftriaxone to meropenem. Patient with a history of penicillin allergy leading to rash. Highly appreciate cardiology input given patient's pulmonary hypertension noted on echo and wall motion abnormalities. Pulmonary potential likely related to underlying pulmonary disease. Recommend maintain euvolemia at this time. Will make n.p.o. over midnight and consider bronchoscopy tomorrow depending on clinical picture to evaluate for possible malignancy. Admission and Anticipated Discharge Date Admission Date: November 19, 2024 Subjective Patient seen and examined. A bit delirious this afternoon and hypoxic requiring increasing oxygen requirements to 4 L with exertion and 2 L with rest. Remains mildly febrile. Patient with occasional cough. No hemoptysis. Shortness of breath with exertion. No nausea or vomiting. Review of Systems Review of Systems: All systems reviewed & are unremarkable except as noted in HPI & below Physical Exam Physical Exam: VITAL SIGNS Vital signs and nursing notes were reviewed. GENERAL 79-year-old female appearing her stated age who is in no acute distress. Communicates well with provider and answers questions appropriately. SKIN Without rashes or lesions. NOSE Midline and without cyanosis. MOUTH/OROPHARYNX Without perioral cyanosis. NECK Neck with FROM. LUNGS bilateral lower lobe rhonchi and mild tachypnea. CARDIAC RRR with S1/S2. No murmur, rubs, or gallops appreciated. ABDOMEN Abdominal inspection demonstrates an obese abdomen. BS normoactive all four quadrants. No tenderness, palpable masses, or ascites noted. EXTREMITIES Nail clubbing not present. No peripheral cyanosis. No pretibial edema present. PSYCH A&Ox3 and cooperates fully with examiner. Pt is very pleasant and interacts well with examiner. Results & Data Results & Data Vital Signs (Past 12 Hours) Vital Signs Temp Pulse Pulse Resp BP Pulse Ox O2 Del Method 11/23/24 15:19 37.8 C H 112 H 19 129/61 93 Nasal Cannula 11/23/24 15:00 111 H 11/23/24 12:01 120 H 21 92 Nasal Cannula 11/23/24 11:06 37.1 C 115 H 18 144/68 H 98 Nasal Cannula 11/23/24 08:00 Nasal Cannula 11/23/24 07:44 112 H 20 92 Nasal Cannula 11/23/24 07:07 36.4 C L 117 H 19 138/79 91 Nasal Cannula 11/23/24 07:00 104 H O2 Flow Rate 11/23/24 15:19 2 11/23/24 15:00 11/23/24 12:01 4 11/23/24 11:06 2 11/23/24 08:00 3 11/23/24 07:44 2 11/23/24 07:07 2 11/23/24 07:00 PG Care Time/CCT Total # of Minutes Spent Total Time Spent with Patient: Total time spent is greater than 50% in coordination of care (as documented) at patient's floor/unit and/or counseling patient: Coding Level of Care Code 70739 SUB INP/OBS CARE 2/35MIN Diagnoses Mass of left lung R91.8 Wheezing R06.2 Tobacco abuse Z72.0 Aspiration pneumonia J69.0 Pulmonary hypertension I27.20
[2024-11-23] MEDS: MEROPENEM 500 MG in SYRINGE 0 ML IV SCH (16:06)
--- NOTE | 2024-11-23 16:11 | Billing Data ---
Date of Service November 23, 2024 Coding Level of Care Code 29921 SUB INP/OBS CARE MIN
--- NOTE | 2024-11-23 18:53 | Cardiology Progress Note ---
Date of Service November 23, 2024 Assessment & Plan (1) CAD (coronary artery disease): (2) S/P CABG x 2: (3) S/P coronary artery stent placement: (4) Tobacco abuse: (5) Paroxysmal atrial fibrillation: (6) Acute blood loss anemia: (7) S/P mitral valve repair: (8) Pulmonary hypertension: (9) Chronic heart failure with preserved ejection fraction: Plan ASSESSMENT/PLAN: 1. CAD s/p circumflex PCI and CABG x 2 (SVG to OM1; SVG to L PL): No angina. Resume aspirin 81 mg daily when safe from a GI standpoint. Continue beta- maria del rosario. Consider high intensity statin therapy. 2. Pulmonary hypertension: Etiology uncertain but has not appeared hypervolemic. She has emphysematous changes on CT and likely has COPD/emphysema. Also currently with pneumonia and potential malignancy (lung mass). Recommend evaluation as recommended by pulmonary. If in the future, further evaluation for pulmonary hypertension would help improve outcome/quality of life, could consider right heart catheterization. There is also potential that this is not a new finding. Of the obtain records thus far, they have not included cardiac catheterization. She has had cardiac catheterizations in the past and this may have already been worked up by her primary cardiology team. 3. Mitral valve repair: Seems to be functioning appropriately without significant mitral regurgitation. SBE prophylaxis for dental procedures. 4. Chronic heart failure with preserved EF: She does not appear hypervolemic on exam. After visit today, she apparently aspirated while eating, which was witnessed by the primary hospitalist service. She became more acutely short of breath and hypoxic. Chest x-ray suggested cephalization and she received 20 mg of IV Lasix with reasonable response. Maintain net negative fluid balance, especially with her ongoing pulmonary issues. Low-sodium diet. Strict I's and O's. Daily weights. 5. Paroxysmal atrial fibrillation: Currently in sinus rhythm. Anticoagulation therapy has been placed on hold given significant GI bleed. Would consider resuming anticoagulation therapy if deemed safe from a GI/pulmonary standpoint, but likely after her bronchoscopy. Would consider Eliquis. Monitor CBC. 6. Regional wall motion abnormalities on echo: Not new based on outside echo report. Has history of IA. LV systolic function overall normal. 7. Tobacco abuse: Smoking cessation. 8. Peripheral arterial disease s/p bilateral lower extremity angioplasties: No reported claudication. Resume antiplatelet therapy when able. Follows with Dr. Zamora's group. 9. Acute blood loss anemia: GI bleed. As per GI and primary hospitalist service. 10. Sinus tachycardia: Likely physiologic given her acute pulmonary issues with pneumonia and concern of malignancy, hypoxia, and anemia. Continue to address her acute issues as per primary hospitalist service and pulmonology. 11. Disposition: Please call with further questions or concerns. Patient care discussed with pulmonology, Dr. Canseco, and primary hospitalist service, Dr. Alves. Admission and Anticipated Discharge Date Admission Date: November 19, 2024 Subjective She was seen earlier this afternoon. She was resting comfortably in bed. She denied chest pain but had shortness of breath which has been an ongoing issue. There was no family at the bedside at that time. She denies syncope or palpitations. Physical Exam Physical Exam: Gen.: No acute distress. Alert. HEENT: Anicteric sclera. Neck: No appreciable JVD. Cardiac: Regular and mildly tachycardic. Normal S1-S2. 1/6 systolic murmur. Pulmonary: Decreased breath sounds bilaterally, with expiratory wheezes Abdomen: Soft, nontender, nondistended, with normoactive bowel sounds. No bruits noted. Extremities: 2+ radial pulses bilaterally. No significant pitting edema or cyanosis. Results & Data Vital Signs (Past 12 Hours) Vital Signs Temp Pulse Pulse Resp BP Pulse Ox O2 Del Method 11/23/24 15:19 37.8 C H 112 H 19 129/61 93 Nasal Cannula 11/23/24 15:00 111 H 11/23/24 12:01 120 H 21 92 Nasal Cannula 11/23/24 11:06 37.1 C 115 H 18 144/68 H 98 Nasal Cannula 11/23/24 08:00 Nasal Cannula 11/23/24 07:44 112 H 20 92 Nasal Cannula 11/23/24 07:07 36.4 C L 117 H 19 138/79 91 Nasal Cannula 11/23/24 07:00 104 H O2 Flow Rate 11/23/24 15:19 2 11/23/24 15:00 11/23/24 12:01 4 11/23/24 11:06 2 11/23/24 08:00 3 11/23/24 07:44 2 11/23/24 07:07 2 11/23/24 07:00 Intake & Output 11/21/24 11/22/24 11/23/24 11/24/24 06:59 06:59 06:59 06:59 Intake Total 711 / 711 836 / 836 1050 / 1050 270 / 270 Output Total 700 / 700 1650 / 1650 300 / 300 1600 / 1600 Balance -814 / -814 750 / 750 -1330 / -1330 Weight 166 lb 3.657 oz 166 lb 0.129 oz 166 lb 7.184 oz Laboratory Results Laboratory Results - last 24 hr 11/22/24 11/23/24 11/23/24 20:11 05:37 07:06 WBC 9.28 RBC 2.87 L Hgb 7.8 L Hct 25.0 L MCV 87.1 MCH 27.2 MCHC 31.2 L RDW Std Deviation 45.8 RDW Coeff of Wayne 14.4 Plt Count 224 MPV 11.5 Sodium 135 L Potassium 3.6 Chloride 94 L Carbon Dioxide 34 H Anion Gap 7 BUN 17 Creatinine 1.29 H D Est Cr Clr Drug Dosing 35.4 eGFR 41.96 BUN/Creatinine Ratio 13.2 Glucose 145 H POC Glucose 133 H 162 H Calcium 8.0 L C-Reactive Protein 15.38 H TSH 1.030 11/23/24 11/23/24 11:08 16:01 WBC RBC Hgb Hct MCV MCH MCHC RDW Std Deviation RDW Coeff of Wayne Plt Count MPV Sodium Potassium Chloride Carbon Dioxide Anion Gap BUN Creatinine Est Cr Clr Drug Dosing eGFR BUN/Creatinine Ratio Glucose POC Glucose 174 H 103 H Calcium C-Reactive Protein TSH Diagnostic Findings Telemetry personally reviewed: Sinus tachycardia near 110 bpm at the time of today's visit. From overnight through morning, sinus in the 90s to 110s. After today's visit, her tachycardia increased into the 120s to 130s, after aspirating and becoming more agitated and short of breath acutely per discussion with hospitalist service, pulmonology, and nursing staff. Labs reviewed and notable for abnormal but stable renal function, normal potassium, anemia with a hemoglobin of 7.8. Chest x-ray 11/23/2024: Cephalization and curly B-lines per radiology. Small left pleural effusion. [facility] records obtained and reviewed, identifying prior PCI and CABG targets. Medications Administered Current Inpatient Medications Acetaminophen (Acetaminophen 325 Mg Tab) 650 mg PO Q4H PRN PRN Reason: Pain or Fever Stop: 12/20/24 23:20 Last Admin: 11/23/24 16:07 Dose: 650 mg Al Hydrox/Mg Hydrox/Simethicone (Aluminum/Magnesium Susp 30 Ml Udc) 15 ml PO Q6 SIM Stop: 12/19/24 22:29 Last Admin: 11/23/24 17:19 Dose: Not Given Albuterol (Albut/Ipratrop 3mg/0.5mg Neb 3 Ml Vial) 3 ml NEB Q2H PRN; Protocol PRN Reason: Wheezing Stop: 12/23/24 11:49 Budesonide (Budesonide 0.5 Mg/2 Ml Vial (Pulmicort)) 0.5 mg INH BIDR SIM Stop: 12/22/24 18:59 Last Admin: 11/23/24 07:43 Dose: 0.5 mg Dextrose (Dextrose 50% 50 Ml Syringe) 25 - 50 ml IV UD PRN; Protocol PRN Reason: Hypoglycemia Protocol Stop: 12/19/24 21:20 Famotidine (Famotidine 20 Mg Tab) 20 mg PO BID SIM Stop: 12/21/24 20:59 Last Admin: 11/23/24 08:14 Dose: 20 mg Furosemide (Furosemide 40 Mg Tab) 40 mg PO QAM SMI Stop: 12/20/24 08:59 Last Admin: 11/23/24 08:14 Dose: 40 mg Glucagon (Glucagon For Inj 1 Mg Vial) 1 mg SQ UD PRN; Protocol PRN Reason: Hypoglycemia Protocol Stop: 12/19/24 21:20 Glucose (Glucose 40% Gel 15 Gm Tube) 15 - 30 gm PO UD PRN; Protocol PRN Reason: Hypoglycemia Protocol Stop: 12/19/24 21:20 Glucose (Glucose 10 Tab/Tube) 4 - 8 tab PO UD PRN; Protocol PRN Reason: Hypoglycemia Protocol Stop: 12/19/24 21:20 Doxycycline Hyclate 100 mg/ (Dextrose) 100 mls @ 50 mls/hr IV Q12H SIM Stop: 11/27/24 08:59 Last Infusion: 11/23/24 10:36 Dose: Infused Acetaminophen (Ofirmev) 1,000 mg in 100 mls @ 400 mls/hr IV Q8H PRN PRN Reason: Fever Stop: 11/25/24 10:19 Last Infusion: 11/22/24 11:13 Dose: Infused Meropenem 500 mg/ Syringe 10 mls @ 2 mls/min IV Q8H [facility]; Protocol Stop: 11/30/24 15:59 Last Admin: 11/23/24 16:06 Dose: 2 mls/min Insulin Aspart (Insulin Aspart Per Unit Charge) 0 units SC ACHS [facility] Stop: 12/22/24 11:59 Last Admin: 11/23/24 16:33 Dose: Not Given Insulin Glargine (Lantus Per Unit Charge) 8 units SQ QPM [facility] Stop: 12/20/24 20:59 Last Admin: 11/22/24 19:36 Dose: 8 units Ipratropium [place] (Ipratropium [place] Neb Soln 0.02% 0.5mg/2.5ml Vial) 0.5 mg INH Q6R [facility] Stop: 12/22/24 12:59 Last Admin: 11/23/24 12:01 Dose: 0.5 mg Levalbuterol HCl (Levalbuterol 1.25 Mg/3 Ml Neb) 1.25 mg INH Q6R [facility] Stop: 12/22/24 12:59 Last Admin: 11/23/24 12:01 Dose: 1.25 mg Lorazepam (Lorazepam 0.5 Mg Tab) 1.5 mg PO TID [facility] Stop: 12/19/24 15:58 Last Admin: 11/23/24 13:47 Dose: 1.5 mg Metoprolol Succinate (Metoprolol Succ 25mg Ext Rel Tab) 12.5 mg PO QAM [facility] Stop: 12/20/24 08:59 Last Admin: 11/22/24 19:33 Dose: 12.5 mg Metoprolol Tartrate (Metoprolol Tartrate 1 Mg/Ml Vial) 5 mg IV Q5M PRN PRN Reason: Tachycardia >110 Stop: 12/21/24 22:45 Last Admin: 11/22/24 00:09 Dose: 5 mg Miscellaneous (Carbohydrates For Hypoglycemia ) 15 - 30 gm PO UD PRN PRN Reason: Hypoglycemia Protocol Stop: 12/19/24 21:20 Miscellaneous Information (Pharmacy Glycemic Mgmt Consult) 1 each N/A UD PRN; Protocol PRN Reason: Consult Stop: 02/11/25 21:20 Nystatin (Nystatin Powder 15gm Btl) 1 appln EXT BID [facility] Stop: 12/23/24 08:59 Last Admin: 11/23/24 08:16 Dose: 1 appln Ondansetron HCl (Ondansetron Inj 2 Mg/Ml 2 Ml Vial) 4 mg IV Q6H PRN PRN Reason: Nausea And Vomiting Stop: 12/19/24 22:22 Last Admin: 11/20/24 20:22 Dose: 4 mg Potassium Chloride (Potassium Chloride 10 Meq Tabcr) 10 meq PO BID [facility] Stop: 12/19/24 20:59 Last Admin: 11/23/24 08:16 Dose: 10 meq PG Care Time/CCT Total # of Minutes Spent Total Time Spent with Patient: Total time spent is greater than 50% in coordination of care (as documented) at patient's floor/unit and/or counseling patient: Coding Level of Care Code 13206 SUB INP/OBS CARE 3/50MIN Diagnoses CAD (coronary artery disease) I25.10 S/P CABG x 2 Z95.1 S/P coronary artery stent placement Z95.5 Tobacco abuse Z72.0 Paroxysmal atrial fibrillation I48.0 Acute blood loss anemia D62 S/P mitral valve repair Z98.890 Pulmonary hypertension I27.20 Chronic heart failure with preserved ejection fraction I50.32
[2024-11-24 06:42] LABS: Hematocrit (blood only) 26.9 % (37.0-47.0); Hemoglobin 8.2 g/dl (12.0-16.0); Mean Corpuscular Hemoglobin 26.9 pg (25.0-34.0); Mean Corpuscular Hgb Conc 30.5 g/dL (32.0-36.0); Mean Corpuscular Volume 88.2 fL (80.0-100.0); Mean Platelet Volume 11.2 fL (9.4-12.4); Platelet Count 229 K/uL (130-400); RDW Standard Deviation 45.4 fL (36.4-46.3); Red Blood Count 3.05 M/uL (4.20-5.40); White Blood Count 9.25 K/ul (4.8-10.8)
[2024-11-24 07:02] LABS: BUN Creatinine Ratio 13.1 (10-20); Calcium 8.1 mg/dl (8.6-10.3); Creatinine Clr Calc Pharmacy 37.3 ml/min; Potassium 3.8 mmol/L (3.5-5.1)
[2024-11-24] MEDS: INSULIN ASPART PER UNIT CHARGE SC SCH ×2 (08:58→17:04)
--- NOTE | 2024-11-24 09:52 | Pulmonology Progress Note ---
Date of Service November 24, 2024 Assessment & Plan (1) Mass of left lung: Plan: Again, CT concerning for large 7.5 cm LEFT upper lobe lesion abutting the mediastinum with compressive physiology. The patient has been saturating well on lobe supplemental oxygen. Unfortunately, she has intermittent delirium which is likely multifactorial in the 79-year-old female with multiple frequent hospitalizations, sepsis secondary to likely underlying pneumonia, antibiotics, etc. That being said, after conversation with the patient's , they are interested in pursuing with tissue biopsy for definitive diagnosis. I did explain to them that given her tenuous status right now, that we certainly could wait until she is more clear, however they would wish to proceed at this time. While this will hopefully provide us with tissue for formal diagnosis, given the patient's fragile state, I am not certain if she would be a great candidate for many forms of intervention at this time. That being said, it appears as though the patient and family are set on obtaining a diagnosis regardless. The patient is stable from a pulmonary study at this point and is agreeable to proceed. This is after discussing risks, benefits, and alternatives. I did explain at gr eat length that her cardiac status is certainly going to be a contributor as well and may provide complication for the procedure. Again, they confirmed that they would wish to proceed to proceed with tissue diagnosis. (2) Wheezing: Plan: Likely COPD. Scant wheezing at this time. Continue with current nebulized therapies as previously ordered. (3) Tobacco abuse: Plan: Greater than [id number] history of smoking. (4) Aspiration pneumonia: Plan: On appropriate antibiotic coverage. (5) Pulmonary hypertension: Plan: Appreciate cardiology input. Continue with diuresis as tolerated. Plan . Admission and Anticipated Discharge Date Admission Date: November 19, 2024 Supervising Physician Co-Signing Physician Notes Patient seen and separately examined from [facility]. Agree with the note as above. I had a discussion with anesthesiology and they were not comfortable proceeding with general anesthesia given the patient's underlying pulmonary hypertension which is reasonable. Thus we will hold on bronchoscopy and tissue sampling at this time and treat empirically for pneumonia. Recommend repeat x-ray in 1 to 2 weeks and follow-up at a tertiary center for left upper lobe lung mass. Discussed with patient's grandson who is a physician family readiness support assistant and cardiology at an outside facility was in agreement with this plan. Unfortunately no prior imaging at this time for me to be able to review. Highly suspect underlying pneumonia, but difficult to rule out underlying malignancy as well given patient's overall picture. Subjective Patient seen and evaluated at bedside. provides majority of information today. Reports that they are interested in bronchoscopy for diagnosis. Patient did had a eventful day yesterday where she had some respiratory distress after a near choking event. She is saturating well on minimal supplemental oxygen at this time. Physical Exam Physical Exam: VITAL SIGNS Vital signs and nursing notes were reviewed. GENERAL 79-year-old female appearing her stated age who is in no acute distress. Communicates well with provider and answers questions appropriately. SKIN Without rashes or lesions. NOSE Midline and without cyanosis. MOUTH/OROPHARYNX Without perioral cyanosis. NECK Neck with FROM. LUNGS Chest wall evaluation demonstrates normal chest wall A:P diameter. Auscultation reveals wheezes in the upper lung henderson bilaterally. CARDIAC RRR with S1/S2. No murmur, rubs, or gallops appreciated. ABDOMEN Abdominal inspection demonstrates an obese abdomen. BS normoactive all four quadrants. No tenderness, palpable masses, or ascites noted. EXTREMITIES Nail clubbing not present. No peripheral cyanosis. No pretibial edema present. PSYCH A&Ox3 and cooperates fully with examiner. Pt is very pleasant and interacts well with examiner. Results & Data Results & Data Vital Signs (Past 12 Hours) Vital Signs Temp Pulse Pulse Resp BP BP Pulse Ox 11/24/24 07:48 11/24/24 07:17 37.1 C 103 H 18 127/63 100 11/24/24 07:14 103 H 18 100 11/24/24 02:41 37.0 C 97 H 20 147/67 H 99 11/24/24 00:54 95 H 21 99 11/23/24 22:55 89 11/23/24 22:53 36.7 C 92 H 20 115/61 96 O2 Del Method O2 Flow Rate 11/24/24 07:48 Nasal Cannula 1 11/24/24 07:17 Nasal Cannula 4 11/24/24 07:14 Nasal Cannula 4 11/24/24 02:41 Nasal Cannula 2 11/24/24 00:54 Nasal Cannula 2 11/23/24 22:55 11/23/24 22:53 Nasal Cannula PG Care Time/CCT Total # of Minutes Spent Total Time Spent with Patient: Total time spent is greater than 50% in coordination of care (as documented) at patient's floor/unit and/or counseling patient: Coding Level of Care Code 89078 SUB INP/OBS CARE 235MIN Diagnoses Mass of left lung R91.8 Wheezing R06.2 Tobacco abuse Z72.0 Aspiration pneumonia J69.0 Pulmonary hypertension I27.20
--- NOTE | 2024-11-24 13:34 | Communication Note ---
Date of Service: November 24, 2024 I was asked to speak to the family because of anesthesia's concerns about doing a bronchoscopy in a patient with severe pulmonary htn. the pt has dementia and her asked that i speak to their grandson David who is a cardiac pa. The handed me his phone. The main issue is that we do not carry the full range of medicines that treat issues with pulmonary htn under anesthesia. If the patient started to show issues we would be limited in treatment. We did do a case as an emergency on her a week ago, but that case also was a light sedation case. She would best be served at a tertiary hospital. The grandson had many questions that were pulmonary related and I explained that that was outside my field. I did get his number. I confirmed with the patients spouse that he gives permission for pulmonology to discuss her care with the grandson. I then spoke with pulmonology and they are going to call the grandson.
[2024-11-24] MEDS ORDERED: Nursing to Pharmacy Communication SCH (15:45)
--- NOTE | 2024-11-24 16:38 | Hospitalist Progress Note ---
Date of Service November 24, 2024 Assessment & Plan (1) Acute gastrointestinal bleeding: (2) Acute blood loss anemia: (3) Mass of left lung: (4) Aspiration pneumonia: (5) Aspiration pneumonitis: (6) Bacterial pneumonia: (7) Atypical pneumonia: (8) Delirium: (9) Elevated hemidiaphragm: (10) Paroxysmal atrial fibrillation: Plan #Acute Gastrointestinal Bleeding #Acute Blood Loss Anemia - Belching x2 months + melena for 10 days prior to ED arrival - Hb 7.2 on admission (decrease from 8.2 on 11/16), - Repeated Hb + Hct serially; consider transfusion Hb <7 - received 1 unit of pRBCs; posttransfusion Hb 7.5 (11/19) - received 1 unit of pRBCs; posttransfusion Hb 7.9 (11/21) - INR 6.4 (11/16), 7.72 (11/18), 2.8 (11/18 after warfarin reversal and IV vitamin K), 1.1 (11/20) - Hold aspirin and atorvastatin - Pantoprazole 80 mg IV bolus then 8 mg/hr drip (11/19 & D/Darryl 11/21) - Discontinue due to no gastric bleeding on EGD - Famotidine 20 mg IV BID - Discontinued due to no gastric bleeding on EGD (11/20 & D/Darryl 11/21) - Added Famotidine 20 mg PO BID (11/22) - Gastrology onboard - 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 Aspiration Pneumonia vs. 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 There is an ill-defined mass in the medial left upper lung measuring approximately 7.5 cm abutting the mediastinum and hilum. There is occlusion of the left upper lobe bronchus and severe narrowing of the lingula bronchus. 2. Mild emphysematous changes in the lungs with small areas of peripheral honeycombing in the upper lobes. Bronchial wall thickening is present consistent with bronchitis. 3. 1 cm density in the medial right lower lobe could represent metastasis or atelectasis. There is also an irregular nodule in the inferior aspect of the right lower lobe measuring 9 mm. 4. Small left pleural effusion layering posteriorly measuring 2.2 cm. There is a small amount of adjacent compressive atelectasis in the left lower lobe. - CT abdomen (oral contrast) + CT pelvis: unremarkable - Pulmonary Consulted - Bronchoscopy with biopsy: cancelled (11/24) - Possible Bacterial Pneumonia: meropenem 500 mg IV TID + doxycycline 100 mg IV BID - Likely COPD: Ipratropium 0.5 mg nebulized QID; Budesonide 0.5 mg BID - Legionella Urine Antigen: Negative - MRSA Nares: Negative - Sputum Culture and Stain: Unremarkable - Urinalysis with reflex microscopy: notable for >50 WBCs, 2+ leukocyte esterase - Culture: Unremarkable - WBC (peaked at 21 K on 11/21); WNL on 11/23 - Cardiology Consulted - Previously noted heart valve defects - Echo: awaiting results - Speech Therapy consulted for swallowing evaluation: unable to complete per patient refusal - IV team consulted - Anterior-Posterior and Lateral CXR: 1. Prominent vascular and interstitial markings with perihilar and bibasilar hazy edema, increased since previous. 2. 7 cm elevation of the left diaphragm, similar to previous. 3. Moderate cardiomegaly with previous sternotomy and mitral valvuloplasty, unchanged. - Furosemide 20 mg IV given once - Albuterol/Ipratropium nebulized Q2Hr PRN #Delirium - Recurrent unorientated to the situation, time, or place - aware and advised on reorientation and distraction efforts - Likely to continue during admission and for weeks after discharge - Keep room lighting consistent to mirror circadian rhythm - Light in the morning - Dark in the night #Atypical Pneumonia - Intermittently febrile with bilateral rhonchus lung sounds - Blood cultures: negative - Viral panel: (+) Coronavirus OC43 - Supportive care #Paroxysmal Atrial Fibrillation - Hold warfarin - Consider DOAC (possible previous hesitancy to switch) - Continue metoprolol succinate 12.5 mg PO daily - Consider titrated metroprolol back to 50 mg following Hb stabilization - Consider non-compliance discussion (noted by kali) #Chronic Conditions - Anxiety: continue home lorazepam and added paroxetine - Diabetes: continue home insulin regimen DVT Prophylaxis: SCD Dispo: Med Admission and Anticipated Discharge Date Admission Date: November 19, 2024 Supervising Physician Co-Signing Physician Notes I personally examined the patient and verified all eli points of history and exam, discussed case, and agree with decision making with Dr Middleton and Marion Bonner MS4 No meaningful HPI or review of systems. However, patient's breathing does seem to be improving. Unfortunately bronchoscopy canceled due to anesthesia concerns about pulmonary hypertension. Updated to the best my ability. Vitals noted, in general she is confused but calmer, appears to be in no distress. Breathing unlabored, 100% on as little as 1 L nasal cannula oxygen whenever I recheck her in the afternoon. No accessory muscle use. No focal neurodeficits. Skin without rashes pallor or icterus. GI bleeding with acute blood loss anemia requiring transfusion 2 units PRBC in the context of AVMs and Coumadin coagulopathyworking diagnosis of AVM/angioectasia exacerbated by coagulopathy is fittingbleeding seems To have stopped. After her current situation and procedural potentials have passed,would favor resuming with a DOAC due to short half-life and far less probability of becoming floridly coagulopathic, obviously would need to follow hemoglobin closely. At the same time, obviously this will be a shared decision making with the patient and her family as well. For now need to hold anticoagulationBleeding does appear to have stopped, but would like to give time for AVMs to clot, and also do not want to introduce another potential factor for instability while we are working on respiratory issues at the moment. Fortunately, currently this problem appears to be stable Lung mass CT findings were done in the context of 30 pounds of involuntary weight loss in an 79-year-old female with a long smoking history. I suspect she also has an overlying infectioneither from mucous plugging, aspiration, or both. Continue antibiotics. Pulmonary edema probably acute on chronic HFpEFoverall her respiratory status is improving. Continue current care and supportive care for now. She was to have bronchoscopy today, anesthesiology felt it too high risk with her pulmonary hypertension. Continue treatment and supportive carepossibly revisit prior to discharge as her respiratory status stabilizes; at the same time if it has to be done as an outpatient, we will try to ensure this is facilitated so that she does not slip through the cracks after dischargein discussion with the , most likely they would want this to be done at [facility]. Because it is weighing on them so heavily, consider repeat chest CT without contrast in a few Carri discussed with him I would not anticipate things to have changed dramatically, but an infection may have at least changed some which may provide some degree of reassurance while they are in such an emotionally difficult holding pattern. delirium/metabolic encephalopathyher mental state seems to be most consistent with a delirium at this time. Continuing to provide updates and direction for her . I do wonder if the delirium is some of what is driving her current dysphagia/aspiration risk. otherwise as above, Anticipate need for SNF or at least rehab at discharge. Sandra Shaikh was seen at bedside with Roderick and a friend this afternoon. Roderick was concerned about her disposition and how we will manage/navigate the outpatient world and getting Hawa to various appointments +/- rehab. I reassured him that will continue to monitor her and will make discharge plans when the time comes to do so. He and the friend mentioned concerns about Hawa's eating, stating she has become overly concerned with aspirating. I reassured them we will address this and make sure she is nourished. Hawa was intermittently responsive to our conversation, but for the majority of the encounter, appeared to be sleeping. No further questions, concerns, or updates. Review of Systems Review of Systems: Per HPI Physical Exam Constitutional: Asleep in bed Respiratory: Nasal cannula in place Respiratory effort and rate appropriate No accessory respiratory muscle use appreciated Cardiovascular: Tachycardic per scraper operator Results & Data Results & Data Vital Signs (Past 12 Hours) Vital Signs Temp Pulse Pulse Resp BP Pulse Ox Pulse Ox 11/24/24 15:55 37.0 C 103 H 18 130/55 L 95 11/24/24 15:00 96 11/24/24 14:25 11/24/24 13:48 102 H 11/24/24 11:06 37.4 C 103 H 18 130/56 L 97 11/24/24 07:48 11/24/24 07:21 105 H 11/24/24 07:17 37.1 C 103 H 18 127/63 100 11/24/24 07:14 103 H 18 100 Pulse Ox Pulse Ox O2 Del Method O2 Del Method O2 Flow Rate O2 Flow Rate O2 Flow Rate 11/24/24 15:55 Nasal Cannula 1 11/24/24 15:00 Nasal Cannula 1 11/24/24 14:25 93 83 L 1 11/24/24 13:48 11/24/24 11:06 Room Air 11/24/24 07:48 Nasal Cannula 1 11/24/24 07:21 11/24/24 07:17 Nasal Cannula 4 11/24/24 07:14 Nasal Cannula 4 O2 Flow Rate 11/24/24 15:55 11/24/24 15:00 11/24/24 14:25 0 11/24/24 13:48 11/24/24 11:06 11/24/24 07:48 11/24/24 07:21 11/24/24 07:17 11/24/24 07:14
--- NOTE | 2024-11-24 17:21 | Billing Data ---
Date of Service November 24, 2024 Coding Level of Care Code 07342 SUB INP/OBS CARE MIN
--- NOTE | 2024-11-24 17:23 | Cardiology Progress Note ---
Date of Service November 24, 2024 Assessment & Plan (1) CAD (coronary artery disease): (2) S/P CABG x 2: (3) S/P coronary artery stent placement: (4) Tobacco abuse: (5) Paroxysmal atrial fibrillation: (6) Acute blood loss anemia: (7) S/P mitral valve repair: (8) Pulmonary hypertension: (9) Chronic heart failure with preserved ejection fraction: Plan ASSESSMENT/PLAN: 1. CAD s/p circumflex PCI and CABG x 2 (SVG to OM1; SVG to L PL): No angina. Resume aspirin 81 mg daily when safe from a GI standpoint. Continue beta- maria del rosario. Consider high intensity statin therapy. 2. Pulmonary hypertension: Etiology uncertain. She has emphysematous changes on CT and likely has COPD/emphysema. Also currently with pneumonia and potential malignancy (lung mass). She does not appear to be hypervolemic currently. Recommend evaluation as recommended by pulmonary. If in the future, further evaluation for pulmonary hypertension would help improve outcome/quality of life, could consider right heart catheterization. There is also potential that this is not a new finding. Of the obtained records thus far, they have not included cardiac catheterization. She has had cardiac catheterizations in the past and this may have already been worked up by her primary cardiology team. 3. Mitral valve repair: Seems to be functioning appropriately without significant mitral regurgitation. SBE prophylaxis for dental procedures. 4. Chronic heart failure with preserved EF: She does not appear hypervolemic on exam. Try to maintain a euvolemic state. Low-sodium diet. Strict I's and O's. Daily weights. 5. Paroxysmal atrial fibrillation: Currently in sinus rhythm. Anticoagulation therapy has been placed on hold given significant GI bleed. Would consider resuming anticoagulation therapy if deemed safe from a GI/pulmonary standpoint, but likely after her bronchoscopy. Would consider Eliquis in place of warfarin. Monitor CBC. 6. Regional wall motion abnormalities on echo: Not new based on outside echo report. Has history of SD. LV systolic function overall normal. 7. Tobacco abuse: Smoking cessation. 8. Peripheral arterial disease s/p bilateral lower extremity angioplasties: No reported claudication. Resume antiplatelet therapy when able. Follows with Dr. Zamora's group. 9. Acute blood loss anemia: GI bleed. As per GI and primary hospitalist service. 10. Sinus tachycardia: Likely physiologic given her acute pulmonary issues with pneumonia and concern of malignancy, hypoxia, and anemia. Continue to address her acute issues as per primary hospitalist service and pulmonology. 11. Disposition: Cardiology will sign off at this time. Please call on-call [facility] senior it recruiter for any further questions or concerns. Admission and Anticipated Discharge Date Admission Date: November 19, 2024 Subjective She was seen this morning with her at the bedside. She denied chest pain or shortness of breath at that time. Pulmonology had just seen her and discussed moving forward with bronchoscopy. Physical Exam Physical Exam: Gen.: No acute distress. Alert. HEENT: Anicteric sclera. Neck: No appreciable JVD. Cardiac: Regular and mildly tachycardic near 100 bpm. Normal S1-S2. 1/6 systolic murmur. Pulmonary: Decreased breath sounds bilaterally, with expiratory wheezes Abdomen: Soft, nontender, nondistended, with normoactive bowel sounds. No bruits noted. Extremities: 2+ radial pulses bilaterally. No significant pitting edema or cyanosis. Results & Data Vital Signs (Past 12 Hours) Vital Signs Temp Pulse Pulse Resp BP Pulse Ox Pulse Ox 11/24/24 15:55 37.0 C 103 H 18 130/55 L 95 11/24/24 15:00 96 11/24/24 14:25 11/24/24 13:48 102 H 11/24/24 11:06 37.4 C 103 H 18 130/56 L 97 11/24/24 07:48 11/24/24 07:21 105 H 11/24/24 07:17 37.1 C 103 H 18 127/63 100 11/24/24 07:14 103 H 18 100 Pulse Ox Pulse Ox O2 Del Method O2 Del Method O2 Flow Rate O2 Flow Rate O2 Flow Rate 11/24/24 15:55 Nasal Cannula 1 11/24/24 15:00 Nasal Cannula 1 11/24/24 14:25 93 83 L 1 11/24/24 13:48 11/24/24 11:06 Room Air 11/24/24 07:48 Nasal Cannula 1 11/24/24 07:21 11/24/24 07:17 Nasal Cannula 4 11/24/24 07:14 Nasal Cannula 4 O2 Flow Rate 11/24/24 15:55 11/24/24 15:00 11/24/24 14:25 0 11/24/24 13:48 11/24/24 11:06 11/24/24 07:48 11/24/24 07:21 11/24/24 07:17 11/24/24 07:14 Intake & Output 11/22/24 11/23/24 11/24/24 11/25/24 06:59 06:59 06:59 06:59 Intake Total 836 / 836 1050 / 1050 370 / 370 200 / 200 Output Total 1650 / 1650 300 / 300 2450 / 2450 Balance -814 / -814 750 / 750 -2080 / -2080 200 / 200 Weight 166 lb 0.129 oz 166 lb 7.184 oz 165 lb 2.02 oz Laboratory Results Laboratory Results - last 24 hr 11/22/24 11/23/24 11/24/24 15:55 20:12 05:44 WBC 9.25 RBC 3.05 L Hgb 8.2 L Hct 26.9 L MCV 88.2 MCH 26.9 MCHC 30.5 L RDW Std Deviation 45.4 RDW Coeff of Wayne 14.0 Plt Count 229 MPV 11.2 Sodium 138 Potassium 3.8 Chloride 94 L Carbon Dioxide 39 H Anion Gap 5 BUN 16 Creatinine 1.22 H Est Cr Clr Drug Dosing 37.3 eGFR 44.86 BUN/Creatinine Ratio 13.1 Glucose 168 H POC Glucose 140 H Calcium 8.1 L Urine Legionella Ag SEE NOTE 11/24/24 11/24/24 11/24/24 07:15 12:15 16:26 WBC RBC Hgb Hct MCV MCH MCHC RDW Std Deviation RDW Coeff of Wayne Plt Count MPV Sodium Potassium Chloride Carbon Dioxide Anion Gap BUN Creatinine Est Cr Clr Drug Dosing eGFR BUN/Creatinine Ratio Glucose POC Glucose 203 H 152 H 205 H Calcium Urine Legionella Ag Diagnostic Findings Telemetry personally reviewed: Sinus rhythm near 100 bpm. An episode of nonsustained atrial tachycardia earlier this morning. Chart reviewed. Labs are 11/24/2024 demonstrated stable anemia from previous, mildly abnormal but stable renal function, normal potassium. Medications Administered Current Inpatient Medications Acetaminophen (Acetaminophen 325 Mg Tab) 650 mg PO Q4H PRN PRN Reason: Pain or Fever Stop: 12/20/24 23:20 Last Admin: 11/23/24 16:07 Dose: 650 mg Al Hydrox/Mg Hydrox/Simethicone (Aluminum/Magnesium Susp 30 Ml Udc) 15 ml PO Q6 SIM Stop: 12/19/24 22:29 Last Admin: 11/24/24 17:03 Dose: 15 ml Albuterol (Albut/Ipratrop 3mg/0.5mg Neb 3 Ml Vial) 3 ml NEB Q2H PRN; Protocol PRN Reason: Wheezing Stop: 12/23/24 11:49 Budesonide (Budesonide 0.5 Mg/2 Ml Vial (Pulmicort)) 0.5 mg INH BIDR SIM Stop: 12/22/24 18:59 Last Admin: 11/24/24 07:14 Dose: 0.5 mg Dextrose (Dextrose 50% 50 Ml Syringe) 25 - 50 ml IV UD PRN; Protocol PRN Reason: Hypoglycemia Protocol Stop: 12/19/24 21:20 Famotidine (Famotidine 20 Mg Tab) 20 mg PO BID SIM Stop: 12/21/24 20:59 Last Admin: 11/24/24 12:34 Dose: Not Given Furosemide (Furosemide 40 Mg Tab) 40 mg PO QAM SIM Stop: 12/20/24 08:59 Last Admin: 11/24/24 14:35 Dose: 40 mg Glucagon (Glucagon For Inj 1 Mg Vial) 1 mg SQ UD PRN; Protocol PRN Reason: Hypoglycemia Protocol Stop: 12/19/24 21:20 Glucose (Glucose 40% Gel 15 Gm Tube) 15 - 30 gm PO UD PRN; Protocol PRN Reason: Hypoglycemia Protocol Stop: 12/19/24 21:20 Glucose (Glucose 10 Tab/Tube) 4 - 8 tab PO UD PRN; Protocol PRN Reason: Hypoglycemia Protocol Stop: 12/19/24 21:20 Doxycycline Hyclate 100 mg/ (Dextrose) 100 mls @ 50 mls/hr IV Q12H SIM Stop: 11/27/24 08:59 Last Infusion: 11/24/24 10:58 Dose: Infused Acetaminophen (Ofirmev) 1,000 mg in 100 mls @ 400 mls/hr IV Q8H PRN PRN Reason: Fever Stop: 11/25/24 10:19 Last Infusion: 11/22/24 11:13 Dose: Infused Meropenem 500 mg/ Syringe 10 mls @ 2 mls/min IV Q8H SIM; Protocol Stop: 11/30/24 15:59 Last Admin: 11/24/24 17:03 Dose: 2 mls/min Insulin Aspart (Insulin Aspart Per Unit Charge) 0 units SC ACHS [facility] Stop: 12/24/24 07:44 Last Admin: 11/24/24 17:04 Dose: 4 units Insulin Glargine (Lantus Per Unit Charge) 0 units SQ QPM [facility]; Protocol Stop: 12/24/24 20:59 Ipratropium Poplar (Ipratropium Poplar Neb Soln 0.02% 0.5mg/2.5ml Vial) 0.5 mg INH Q6R [facility] Stop: 12/22/24 12:59 Last Admin: 11/24/24 13:45 Dose: Not Given Levalbuterol HCl (Levalbuterol 1.25 Mg/3 Ml Neb) 1.25 mg INH Q6R [facility] Stop: 12/22/24 12:59 Last Admin: 11/24/24 13:45 Dose: Not Given Lorazepam (Lorazepam 0.5 Mg Tab) 1.5 mg PO TID [facility] Stop: 12/19/24 15:58 Last Admin: 11/24/24 15:17 Dose: Not Given Metoprolol Succinate (Metoprolol Succ 25mg Ext Rel Tab) 12.5 mg PO QAM [facility] Stop: 12/20/24 08:59 Last Admin: 11/24/24 14:35 Dose: 12.5 mg Metoprolol Tartrate (Metoprolol Tartrate 1 Mg/Ml Vial) 5 mg IV Q5M PRN PRN Reason: Tachycardia >110 Stop: 12/21/24 22:45 Last Admin: 11/22/24 00:09 Dose: 5 mg Miscellaneous (Carbohydrates For Hypoglycemia ) 15 - 30 gm PO UD PRN PRN Reason: Hypoglycemia Protocol Stop: 12/19/24 21:20 Miscellaneous Information (Pharmacy Glycemic Mgmt Consult) 1 each N/A UD PRN; Protocol PRN Reason: Consult Stop: 12/19/24 21:20 Nystatin (Nystatin Powder 15gm Btl) 1 appln EXT BID [facility] Stop: 12/23/24 08:59 Last Admin: 11/24/24 08:58 Dose: 1 appln Ondansetron HCl (Ondansetron Inj 2 Mg/Ml 2 Ml Vial) 4 mg IV Q6H PRN PRN Reason: Nausea And Vomiting Stop: 02/11/25 22:22 Last Admin: 11/20/24 20:22 Dose: 4 mg Potassium Chloride (Potassium Chloride 10 Meq Tabcr) 10 meq PO BID SIM Stop: 12/19/24 20:59 Last Admin: 11/24/24 14:37 Dose: Not Given PG Care Time/CCT Total # of Minutes Spent Total Time Spent with Patient: Total time spent is greater than 50% in coordination of care (as documented) at patient's floor/unit and/or counseling patient: Coding Level of Care Code 00270 SUB INP/OBS CARE 3/50MIN Diagnoses CAD (coronary artery disease) I25.10 S/P CABG x 2 Z95.1 S/P coronary artery stent placement Z95.5 Tobacco abuse Z72.0 Paroxysmal atrial fibrillation I48.0 Acute blood loss anemia D62 S/P mitral valve repair Z98.890 Pulmonary hypertension I27.20 Chronic heart failure with preserved ejection fraction I50.32
[2024-11-24] MEDS: LANTUS PER UNIT CHARGE SQ SCH (20:31)
[2024-11-25 06:27] LABS: Hemoglobin 8.4 g/dl (12.0-16.0); Mean Corpuscular Hemoglobin 26.8 pg (25.0-34.0); Mean Corpuscular Hgb Conc 31.1 g/dL (32.0-36.0); Mean Corpuscular Volume 86.3 fL (80.0-100.0); Mean Platelet Volume 11.2 fL (9.4-12.4); Platelet Count 275 K/uL (130-400); RDW Coefficient of Variation 14.2 % (11.5-14.5); RDW Standard Deviation 44.7 fL (36.4-46.3); Red Blood Count 3.13 M/uL (4.20-5.40); White Blood Count 7.75 K/ul (4.8-10.8)
[2024-11-25 06:39] LABS: BUN Creatinine Ratio 14.3 (10-20); Calcium 8.4 mg/dl (8.6-10.3); Creatinine Clr Calc Pharmacy 39.8 ml/min; Potassium 3.6 mmol/L (3.5-5.1)
--- NOTE | 2024-11-25 11:17 | Hospitalist Progress Note ---
Date of Service November 25, 2024 Assessment & Plan (1) Acute gastrointestinal bleeding: (2) Elevated hemidiaphragm: (3) Non compliance with medical treatment: (4) Anemia: (5) Angiodysplasia of gastrointestinal tract: (6) Mass of left lung: (7) Atypical pneumonia: (8) Tobacco abuse: (9) Aspiration pneumonia: (10) Chronic heart failure with preserved ejection fraction: (11) Pulmonary hypertension: Plan #Acute Gastrointestinal Bleeding #Acute Blood Loss Anemia - Melena for 10 days prior to ED arrival - Hb 7.2 on admission, low 7's and dipped to 6.8 on 11/21 - received 2 units PRBC 11/19 and 11/21 - INR 7.72 (11/18)-> warfarin reversal and IV vit. K, repeat INR: 1.1 (11/20) - Hold aspirin and atorvastatin - Famotidine 20 mg PO BID - No evidence of continued GI bleed after EGD and cauterization of AVM in stomach - CBC QAM #Elevated Hemidiaphragm #Left Lung Mass #Possible Aspiration Pneumonia - CT chest: 7.5 cm medial left upper lobe mass w/ occlusion of left upper lobe bronchus, bronchitis, 1cm RLL density, small left pleural effusion with LLL compressive atelectasis - etiology unclear, infectious vs malignancy - Patient with approximately 15 pounds of unexplained weight loss since 11/19, and tobacco abuse - Previous chest x-ray from [place] 1 month prior does not make note of new mass - Pulmonology consulted: recommend outpatient CXR f/u and bronchoscopy at tertiary center due to complicated cardiac status - Continue IV meropenem 500 mg TID, doxycycline 100 mg BID for potential pneumonia, consider deescalation to oral abx tomorrow - Continue COPD maintenance medications: Ipratropium 0.5 mg nebulized QID; B udesonide 0.5 mg BID, Nebs Q2H PRN - Serology: Legionella, MRSA Nares, Bcx x2, urine cx, sputum sample: negative - Echocardiogram 11/22: EF: 55-60%, severe pulmonary HTN, severe hypokinesis inferolateral and basal anterolateral juarez - Speech Therapy consulted for swallowing evaluation: unable to complete per patient refusal - CMP QAM #Delirium - Recurrent unorientated to the situation, time, or place - aware and advised on reorientation and distraction efforts - Likely to continue during admission and for weeks after discharge - Keep room lighting consistent to mirror circadian rhythm - Light in the morning - Dark in the night #Paroxysmal Atrial Fibrillation - Hold warfarin - Consider DOAC (possible previous hesitancy to switch) - Continue metoprolol succinate 12.5 mg PO daily - Consider titrated metroprolol back to 50 mg following Hb stabilization - Consider non-compliance discussion (noted by grandson) #Chronic Conditions - Anxiety: continue home lorazepam and added paroxetine - Diabetes: continue home insulin regimen DVT Prophylaxis: SCD Dispo: Med Admission and Anticipated Discharge Date Admission Date: November 19, 2024 Supervising Physician Co-Signing Physician Notes I personally examined the patient and verified all eli points of history and exam, discussed case, and agree with decision making with Dr Shen More awake and alert. Annoyed with me for asking orientation questions. No acute complaints. Updated patient and to the best my ability. Vitals noted, in general she is awake and alert currently seems to be oriented, no distress. Breathing unlabored no accessory muscle use good effort. Skin without rashes pallor or icterus. Neuro without focal deficits. Exam otherwise as above. GI bleeding with acute blood loss anemia requiring transfusion 2 units PRBC in the context of AVMs and Coumadin coagulopathyworking diagnosis of AVM/angioectasia exacerbated by coagulopathy is fittingbleeding seems To have stopped. After her current situation and procedural potentials have passed,would favor resuming with a DOAC due to short half-life and far less probability of becoming floridly coagulopathic, obviously would need to follow hemoglobin closely. At the same time, obviously this will be a shared decision making with the patient and her family as well. For now need to hold anticoagu lationBleeding does appear to have stopped, but would like to give time for AVMs to clot, and also do not want to introduce another potential factor for instability while we are working on respiratory issues at the moment. Fortunately, currently this problem appears to be stable Lung mass CT findings were done in the context of 30 pounds of involuntary weight loss in an 79-year-old female with a long smoking history. I suspect she also has an overlying infectioneither from mucous plugging, aspiration, or both. Continue antibiotics. Pulmonary edema probably acute on chronic HFpEF overall her respiratory status is improving. Continue current care and supportive care for now. She was to have bronchoscopy 1/17, anesthesiology felt it too high risk with her pulmonary hypertension. Continue treatment and supportive carepossibly revisit prior to discharge as her respiratory status stabilizes; at the same time if it has to be done as an outpatient, we will try to ensure this is facilitated so that she does not slip through the cracks after dischargein discussion with the , most likely they would want this to be done at [facility]. Because it is weighing on them so heavily, consider repeat chest CT without contrast tomorrow-I discussed with him I would not anticipate things to have changed dramatically, but an infection may have at least changed some which may provide some degree of reassurance while they are in such an emotionally difficult holding pattern. delirium/metabolic encephalopathy Mental status surprisingly better today. While this was reassuring, I also cautioned her the deliriums do often wax and wane, and if she worsens again it would not be unexpected. otherwise as above, Anticipate need for SNF or at least rehab at discharge. Sandra Hawa Ceja was seen at bedside alongside . Patient is oriented to place and name but struggles with date. Patient's situation is explained and does not have acute complaints or concerns. Patient denies chest pain, pressure, SOB, cough, wheeze, abdominal pain, nausea, vomiting. Patient does endorse some ongoing dizziness but reports that this is her baseline. Physical Exam Physical Exam: General: patient resting comfortably, NAD, non-toxic in appearance, answers questions appropriately. Skin: warm, dry, intact HEENT: NC/AT, anicteric sclera, conjunctiva without injection, moist mucus membranes. Heart: +S1/S2, regular, no m/r/g Lungs: equal air entry bilaterally, no rales/rhonchi/wheezes Abd: +BS, soft, NT/ND Ext: warm, no clubbing/cyanosis or edema Neuro: nonfocal, speech intact, no facial droop, moving all extremities. Results & Data Results & Data Vital Signs (Past 12 Hours) Vital Signs Temp Pulse Resp BP BP Pulse Ox O2 Del Method 11/25/24 07:52 36.5 C 84 18 164/70 H 97 Nasal Cannula 11/25/24 07:11 95 H 18 97 Nasal Cannula 11/25/24 03:27 36.9 C 93 H 18 113/58 L 94 Nasal Cannula 11/25/24 00:31 90 15 96 Nasal Cannula O2 Flow Rate 11/25/24 07:52 2 11/25/24 07:11 2 11/25/24 03:27 1 11/25/24 00:31 2 Resident Activity Tracking Resident Involvement: Resident Care Provided Care Provided: Adult Hospital Medicine
--- NOTE | 2024-11-25 14:59 | Pulmonology Progress Note ---
Date of Service November 25, 2024 Assessment & Plan (1) Mass of left lung: Plan: Ill-defined left upper lobe masslike consolidation. Chest x-ray reports from outside hospital reviewed. No mention of left upper lobe mediastinal abnormality or masslike consolidation at that time from earlier in this month. I do not have the images to personally review. No prior CT chest imaging unfortunately available for review. Differential for this masslike consolidatio n is broad including severe community-acquired pneumonia, cryptogenic organizing pneumonia and possible underlying malignancy. The masslike consolidation is persistent on outpatient imaging, would recommend referral to a tertiary center for bronchoscopy and biopsy given underlying pulmonary hypertension and significant cardiac dysfunction. Continue meropenem and doxycycline. Sputum culture negative to date. Repeat chest x-ray tomorrow along with procalcitonin. If procalcitonin remains negative, de-escalate to oral antibiotics. (2) Wheezing: Plan: Likely related to bronchial pneumonia in the setting of COPD. Continue bronchodilators. (3) Tobacco abuse: Plan: Greater than [id number] history of smoking. Smoking cessation encouraged. (4) Aspiration pneumonia: Plan: See comments above. Will likely de-escalate to cefdinir and doxycycline to complete a 7-day course tomorrow. (5) Pulmonary hypertension: Plan: Appreciate cardiology input. Continue with diuresis as tolerated. Plan . Admission and Anticipated Discharge Date Admission Date: November 19, 2024 Subjective Patient seen and examined. Resting comfortably in bed. Per nursing staff, frequently anxious and crying. Patient is clinical picture relatively unchanged compared to the last 1 to 2 days. Remains on low-flow oxygen. Occasional cough. No nausea, vomiting or chest pain. Review of Systems Review of Systems: All systems reviewed & are unremarkable except as noted in HPI & below Physical Exam Physical Exam: VITAL SIGNS Vital signs and nursing notes were reviewed. GENERAL 79-year-old female appearing her stated age who is in no acute distress. Communicates well with provider and answers questions appropriately. SKIN Without rashes or lesions. NOSE Midline and without cyanosis. MOUTH/OROPHARYNX Without perioral cyanosis. NECK Neck with FROM. LUNGS Chest wall evaluation demonstrates normal chest wall A:P diameter. Auscultation reveals rhonchi in the left upper lobe. Prolonged phase of exhalation. CARDIAC RRR with S1/S2. No murmur, rubs, or gallops appreciated. ABDOMEN Abdominal inspection demonstrates an obese abdomen. BS normoactive all four quadrants. No tenderness, palpable masses, or ascites noted. EXTREMITIES Nail clubbing not present. No peripheral cyanosis. No pretibial edema present. PSYCH A&Ox3 and cooperates fully with examiner. Results & Data Results & Data Vital Signs (Past 12 Hours) Vital Signs Temp Pulse Resp BP BP Pulse Ox O2 Del Method 11/25/24 12:26 96 H 18 93 Nasal Cannula 11/25/24 11:32 36.8 C 93 H 18 118/62 100 Nasal Cannula 11/25/24 07:52 36.5 C 84 18 164/70 H 97 Nasal Cannula 11/25/24 07:11 95 H 18 97 Nasal Cannula 11/25/24 03:27 36.9 C 93 H 18 113/58 L 94 Nasal Cannula O2 Flow Rate 11/25/24 12:26 2 11/25/24 11:32 2 11/25/24 07:52 2 11/25/24 07:11 2 11/25/24 03:27 1 PG Care Time/CCT Total # of Minutes Spent Total Time Spent with Patient: Total time spent is greater than 50% in coordination of care (as documented) at patient's floor/unit and/or counseling patient: Coding Level of Care Code 56090 SUB INP/OBS CARE 12/02MIN Diagnoses Mass of left lung R91.8 Wheezing R06.2 Tobacco abuse Z72.0 Aspiration pneumonia J69.0 Pulmonary hypertension I27.20
--- NOTE | 2024-11-25 16:57 | Billing Data ---
Date of Service November 25, 2024 Coding Level of Care Code 37432 SUB INP/OBS CARE MIN
[2024-11-26 06:40] LABS: Basophils # (auto) 0.06 K/uL (0.00-0.20); Basophils % (auto) 0.7 %; Eosinophils # (auto) 0.26 K/uL (0.00-0.50); Hematocrit (blood only) 27.4 % (37.0-47.0); Hemoglobin 8.4 g/dl (12.0-16.0); Immature Granulocytes # (auto) 0.03 K/uL (0.01-0.20); Immature Granulocytes % (auto) 0.3 %; Lymphocytes # (auto) 1.21 K/uL (1.20-3.40); Lymphocytes % (auto) 14.1 %; Mean Corpuscular Hemoglobin 26.6 pg (25.0-34.0); Mean Corpuscular Hgb Conc 30.7 g/dL (32.0-36.0); Mean Corpuscular Volume 86.7 fL (80.0-100.0); Monocytes # (auto) 1.06 K/uL (0.11-0.59); Monocytes % (auto) 12.4 %; Neutrophils # (auto) 5.96 K/uL (1.40-6.50); Neutrophils % (auto) 69.5 %; Platelet Count 286 K/uL (130-400); RDW Coefficient of Variation 14.2 % (11.5-14.5); RDW Standard Deviation 45.1 fL (36.4-46.3); Red Blood Count 3.16 M/uL (4.20-5.40); White Blood Count 8.58 K/ul (4.8-10.8)
[2024-11-26 07:03] LABS: BUN Creatinine Ratio 14.8 (10-20); Calcium 8.3 mg/dl (8.6-10.3); Creatinine Clr Calc Pharmacy 41.1 ml/min; Potassium 3.8 mmol/L (3.5-5.1)
[2024-11-26] MEDS: LANTUS PER UNIT CHARGE SQ ONE (09:04)
--- NOTE | 2024-11-26 10:00 | XRay Report ---
EXAM: Radiographs of the Chest 2 Views INDICATION: Reevaluate pneumonia. TECHNIQUE: Frontal and lateral views of the chest. COMPARISON: 11/23/2024 FINDINGS: Lungs and pleural spaces: Generalized improvement in patchy infiltrates with stable left perihilar mass density. Diffuse interstitial thickening unchanged. Trace bilateral pleural effusions stable. No pneumothorax. Heart: Stable large cardiac shadow. Mediastinum: Normal contour. Bones/joints: No fracture, erosion or dislocation. IMPRESSION: 1. Slight improved patchy bilateral infiltrates with stable generalized interstitial thickening and small pleural effusions. 2. Stable left hilar mass. ACT 112: Negative or not required by law. Electronically signed by Georgia Hart 11-26-2024 10:00 AM
--- NOTE | 2024-11-26 11:12 | Hospitalist Progress Note ---
Date of Service November 26, 2024 Assessment & Plan (1) Acute gastrointestinal bleeding: (2) Elevated hemidiaphragm: (3) Non compliance with medical treatment: (4) Anemia: (5) Angiodysplasia of gastrointestinal tract: (6) Mass of left lung: (7) Atypical pneumonia: (8) Tobacco abuse: (9) Aspiration pneumonia: (10) Chronic heart failure with preserved ejection fraction: (11) Pulmonary hypertension: Plan #Acute Gastrointestinal Bleeding #Acute Blood Loss Anemia - Melena for 10 days prior to ED arrival - Hb 7.2 on admission, low 7's and dipped to 6.8 - received 2 units PRBC 11/19 and 11/21 - INR 7.72 (11/18)-> warfarin reversal and IV vit. K, repeat INR: 1.1 (11/20) - Hold aspirin and atorvastatin - Famotidine 20 mg PO BID - No evidence of continued GI bleed after EGD and cauterization of AVM in stomach - CBC QAM #Elevated Hemidiaphragm #Left Lung Mass #Possible Aspiration Pneumonia - CT chest: 7.5 cm medial left upper lobe mass w/ occlusion of left upper lobe bronchus, bronchitis, 1cm RLL density, small left pleural effusion with LLL compressive atelectasis - etiology unclear, infectious vs malignancy; 15 pounds of unexplained weight loss since 11/19, and tobacco abuse - Previous chest x-ray from [place] 1 month prior does not make note of new mass - Continue IV meropenem 500 mg TID, doxycycline 100 mg BID for potential pneumonia, consider deescalation to oral abx tomorrow - Continue COPD maintenance medications: Ipratropium 0.5 mg nebulized QID; Budesonide 0.5 mg BID, Nebs Q2H PRN - Serology: Legionella, MRSA Nares, Bcx x2, urine cx, sputum sample: negative - Echocardiogram 11/22: EF: 55-60%, severe pulmonary HTN, severe hypokinesis inferolateral and basal anterolateral juarez - Speech Therapy consulted for swallowing evaluation: unable to complete per patient refusal - CXR 11/26: Slightly improved bilateral infiltrates, small pleural effusions, stable left hilar mass; concerning for malignancy - Pulmonology recommend outpatient CXR f/u and bronchoscopy at tertiary center due to complicated cardiac status - CMP QAM #Delirium - Recurrent unorientated to the situation, time, or place - aware and advised on reorientation and distraction efforts - Likely to continue during admission and for weeks after discharge - Keep room lighting consistent to mirror circadian rhythm - Irritated by constant orientation questions, refuses to answer today; fluctuating delirium - Light in the morning - Dark in the night #Paroxysmal Atrial Fibrillation - Hold warfarin - Consider DOAC (possible previous hesitancy to switch) - Continue metoprolol succinate 12.5 mg PO daily - Consider titrated metroprolol back to 50 mg following Hb stabilization - Consider non-compliance discussion (noted by kali) #Chronic Conditions - Anxiety: continue home lorazepam and added paroxetine - Diabetes: continue home insulin regimen DVT Prophylaxis: SCD Dispo: Med Admission and Anticipated Discharge Date Admission Date: November 19, 2024 Supervising Physician Co-Signing Physician Notes I personally examined the patient and verified all eli points of history and exam, discussed case, and agree with decision making with Dr Shen Awake and alert. Surprisingly lucid. No new complaints. Would definitely like to go to rehab. Discussed follow-up CT findings as well as pulmonary thought that things actually look more reassuring. Discussed Eliquis instead of Coumadin for atrial fibrillation. Vitals noted, in general she is awake and alert currently seems to be oriented, no distress. Breathing unlabored no accessory muscle use good effort. Skin without rashes pallor or icterus. Neuro without focal deficits. Exam otherwise as above. GI bleeding with acute blood loss anemia requiring transfusion 2 units PRBC in the context of AVMs and Coumadin coagulopathyworking diagnosis of AVM/angioectasia exacerbated by coagulopathy is fittingbleeding stopped. After her current situation and procedural potentials have passed,would favor resuming with a DOAC due to short half-life and far less probability of becoming floridly coagulopathic, obviously would need to follow hemoglobin closely. we have discussed the situation and she overall feels comfortable starting Eliquis. Would ask that this be started tomorrow (12/05) on the off chance that a bronchoscopy might be done tomorrow (I highly doubt it would, but would wait to start the Eliquis until that is completely clearly the case) Lung mass CT findings were done in the context of 30 pounds of involuntary weight loss in an 79-year-old female with a long smoking history. I suspect she also has an overlying infectioneither from mucous plugging, aspiration, or both. now on p.o. antibiotics. CT still shows concerning findings, but pulmonary told me their interpretation is they feel it is more reassuring. Discussed this with patientoptions being to continue to try to get a bronchoscopy done while she is in the hospital (given that her respiratory status is much better than it was, this does not seem unreasonableand tomorrow's team could reach out to anesthesia to revisit), versus bronchoscopy at [facility] as an outpatient which was the plan as of Wednesday (they would prefer [facility]) versus repeat CT in 4 weeks. The seems keen on getting the bronchoscopy done as quickly as possible, the patient herself is a little more ambivalent. delirium/metabolic encephalopathy Mental status surprisingly better And staying stable otherwise as above, anticipate rehab at dischargepatient/ would prefer [facility] [place] Subjective Hawa Ceja was seen at bedside alongside . Patient irritated and refuses to answer when asked orientation questions. Patient reports that she has been feeling palpitations after she completes her breathing treatments. Patient denies chest pain or pressure. Patient does endorse some dizziness and wheezing. Patient also frustrated by food options and does not like being on a liquid diet but does endorse choking when eating solids a few times during admission. Physical Exam Physical Exam: General: patient resting comfortably, NAD, non-toxic in appearance, answers questions appropriately. Skin: warm, dry, intact HEENT: NC/AT, anicteric sclera, conjunctiva without injection, moist mucus membranes. Heart: +S1/S2, regular, no m/r/g Lungs: equal air entry bilaterally, no rales/rhonchi/wheezes Abd: +BS, soft, NT/ND Ext: warm, no clubbing/cyanosis or edema Neuro: nonfocal, speech intact, no facial droop, moving all extremities. Results & Data Results & Data Vital Signs (Past 12 Hours) Vital Signs Temp Pulse Resp BP Pulse Ox O2 Del Method O2 Flow Rate 11/26/24 07:56 105 H 20 85 L Room Air 11/26/24 07:42 36.8 C 99 H 18 130/73 90 Room Air 11/26/24 02:59 37.0 C 97 H 16 131/57 L 96 Nasal Cannula 2 11/26/24 01:13 87 18 100 Room Air 11/25/24 23:44 37.0 C 96 H 20 135/62 94 Nasal Cannula 2 Resident Activity Tracking Resident Involvement: Resident Care Provided Care Provided: Adult Hospital Medicine
--- NOTE | 2024-11-26 12:59 | Pulmonology Progress Note ---
Date of Service November 26, 2024 Assessment & Plan (1) Mass of left lung: Plan: Ill-defined left upper lobe masslike consolidation. Chest x-ray reports from outside hospital reviewed. No mention of left upper lobe mediastinal abnormality or masslike consolidation at that time from earlier in this month. I do not have the images to personally review. No prior CT chest imaging unfortunately available for review. Differential for this masslike consolidatio n is broad including severe community-acquired pneumonia, cryptogenic organizing pneumonia and possible underlying malignancy. If the masslike consolidation is persistent on outpatient imaging, would recommend referral to a tertiary center for bronchoscopy and biopsy given underlying pulmonary hypertension and significant cardiac dysfunction. Procalcitonin unremarkable today. Antibiotics de-escalated to cefdinir and doxycycline. Would recommend completing a total of 10 days of antibiotics. Chest x-ray reviewed today with stable findings and perhaps subtle improvement in the left upper lobe infiltrate. Hospitalist service ordered a repeat CT chest today without contrast which demonstrates significant improvement in the left upper lobe mass like consolidation with resolution of the more anterior component. Underlying malignancy and postobstructive pneumonia are still a possibility. Recommend a follow-up CT chest in about 4 weeks. Patient also with a small adjacent left pleural effusion which appears stable compared to her prior CT. (2) Wheezing: Plan: Likely related to bronchial pneumonia in the setting of COPD. Continue bronchodilators. (3) Tobacco abuse: Plan: Greater than [id number] history of smoking. Smoking cessation encouraged. (4) Pulmonary hypertension: Plan: Appreciate cardiology input. Continue with diuresis as tolerated. Plan Pulmonary to sign off at this time. Please call questions. Thank you for the consult. Discussed with hospital service. Admission and Anticipated Discharge Date Admission Date: November 19, 2024 Subjective Patient seen and examined today. Saturating in the low 90s on room air at rest. Patient requesting to hold on further bronchodilators as it makes her anxious and gives her palpitations. She denies any cough or shortness of breath at rest. No chest pain, fevers, chills or night sweats. Review of Systems Review of Systems: All systems reviewed & are unremarkable except as noted in HPI & below Physical Exam Physical Exam: VITAL SIGNS Vital signs and nursing notes were reviewed. GENERAL 79-year-old female appearing her stated age who is in no acute distress. Communicates well with provider and answers questions appropriately. SKIN Without rashes or lesions. NOSE Midline and without cyanosis. MOUTH/OROPHARYNX Without perioral cyanosis. NECK Neck with FROM. LUNGS relatively clear with very minimal expiratory wheezes in the upper lobes. Prolonged phase of exhalation. CARDIAC RRR with S1/S2. No murmur, rubs, or gallops appreciated. ABDOMEN Abdominal inspection demonstrates an obese abdomen. BS normoactive all four quadrants. No tenderness, palpable masses, or ascites noted. EXTREMITIES Nail clubbing not present. No peripheral cyanosis. No pretibial edema present. PSYCH A&Ox3 and cooperates fully with examiner. Results & Data Results & Data Vital Signs (Past 12 Hours) Vital Signs Temp Pulse Resp BP Pulse Ox O2 Del Method O2 Flow Rate 11/26/24 11:31 37.2 C 95 H 18 102/58 L 93 Room Air 11/26/24 07:56 105 H 20 85 L Room Air 11/26/24 07:42 36.8 C 99 H 18 130/73 90 Room Air 11/26/24 02:59 37.0 C 97 H 16 131/57 L 96 Nasal Cannula 2 11/26/24 01:13 87 18 100 Room Air PG Care Time/CCT Total # of Minutes Spent Total Time Spent with Patient: Total time spent is greater than 50% in coordination of care (as documented) at patient's floor/unit and/or counseling patient: Coding Level of Care Code 18244 SUB INP/OBS CARE 12/02MIN Diagnoses Mass of left lung R91.8 Wheezing R06.2 Tobacco abuse Z72.0 Pulmonary hypertension I27.20
--- NOTE | 2024-11-26 13:04 | CT Scan Report ---
EXAM: CT Chest Without Intravenous Contrast INDICATION: Possible pneumonia versus perihilar mass. TECHNIQUE: Axial computed tomography images of the chest without intravenous contrast. Sagittal and coronal reformatted images were created and reviewed. This CT exam was performed using one or more of the following dose reduction techniques: automated exposure control, adjustment of the mA and/or kV according to patient size, and/or use of iterative reconstruction technique. COMPARISON: Chest x-ray the same day and CT chest 11/20/2024 FINDINGS: Limitations: None. Lungs and pleural spaces: Stable small layering left pleural effusion. No pneumothorax. Airway thickening with new subsegmental collapse of the right lower lobe. Stable nodules. Heart: Stable cardiomegaly. Mitral valve replacement noted. Coronary bypass changes present. No pericardial effusion. Mediastinum: There is slight decrease size mass in the left mediastinum measuring roughly 8.4 cm AP by 7.9 cm transverse by 6.8 cm long. Stable occlusion of the left upper lobe bronchus. Minimally improved postobstructive pneumonia. Thyroid: No abnormality noted. Bones/joints: No acute changes. Soft tissues: No significant abnormality noted. Vasculature: No abnormality noted. No thoracic aortic aneurysm. Lymph nodes: Stable confluent. IMPRESSION: 1. Bronchiectasis with new subsegmental atelectasis in the right lower lobe. 2. 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 3. Stable small left pleural effusion. ACT 112: Negative or not required by law. Electronically signed by Georgia Hart 11-26-2024 13:04 PM
--- NOTE | 2024-11-26 15:58 | Billing Data ---
Date of Service November 26, 2024 Coding Level of Care Code 75579 SUB INP/OBS CARE MIN
[2024-11-26] MEDS: CARBOHYDRATES FOR HYPOGLYCEMIA PO PRN (16:17)
[2024-11-26] MEDS: CEFDINIR 300 MG CAP PO SCH (20:09)
[2024-11-26] MEDS ORDERED: LANTUS PER UNIT CHARGE SQ SCH (21:00)
[2024-11-26] MEDS: LANTUS PER UNIT CHARGE SQ SCH (22:11)
[2024-11-27] MEDS: INSULIN ASPART PER UNIT CHARGE SC SCH (00:15)
[2024-11-27 06:21] LABS: Basophils # (auto) 0.07 K/uL (0.00-0.20); Basophils % (auto) 0.7 %; Hematocrit (blood only) 29.2 % (37.0-47.0); Hemoglobin 9.1 g/dl (12.0-16.0); Immature Granulocytes # (auto) 0.04 K/uL (0.01-0.20); Immature Granulocytes % (auto) 0.4 %; Lymphocytes # (auto) 1.72 K/uL (1.20-3.40); Lymphocytes % (auto) 17.2 %; Mean Corpuscular Hemoglobin 26.3 pg (25.0-34.0); Mean Corpuscular Hgb Conc 31.2 g/dL (32.0-36.0); Mean Corpuscular Volume 84.4 fL (80.0-100.0); Mean Platelet Volume 10.7 fL (9.4-12.4); Neutrophils # (auto) 6.86 K/uL (1.40-6.50); Neutrophils % (auto) 68.7 %; Platelet Count 307 K/uL (130-400); RDW Coefficient of Variation 14.5 % (11.5-14.5); RDW Standard Deviation 44.1 fL (36.4-46.3); Red Blood Count 3.46 M/uL (4.20-5.40); White Blood Count 9.99 K/ul (4.8-10.8)
[2024-11-27 06:29] LABS: BUN Creatinine Ratio 12.2 (10-20); Calcium 8.6 mg/dl (8.6-10.3); Creatinine Clr Calc Pharmacy 36.1 ml/min; Potassium 3.5 mmol/L (3.5-5.1)
--- NOTE | 2024-11-27 07:03 | Hospitalist Progress Note ---
Date of Service November 27, 2024 Assessment & Plan (1) Acute gastrointestinal bleeding: (2) Elevated hemidiaphragm: (3) Non compliance with medical treatment: (4) Anemia: (5) Angiodysplasia of gastrointestinal tract: (6) Mass of left lung: (7) Atypical pneumonia: (8) Tobacco abuse: (9) Aspiration pneumonia: (10) Chronic heart failure with preserved ejection fraction: (11) Pulmonary hypertension: Plan Hawa is an 79yo female with h/o HFpEF (echo 11/22 55%), afib on warfarin (most recent INR on 11/20 was 1.1) anemia, anxiety, diabetes, and significant smoking history who presented with dizziness, weakness, and was admitted with concern for continued anemia. #Acute Gastrointestinal Bleeding #Acute Blood Loss Anemia - Melena for 10 days prior to ED arrival - Hb 7.2 on admission, low 7's and dipped to 6.8 - INR 7.72 (11/18)-> warfarin reversal and IV vit. K, repeat INR: 1.1 (11/20) - s/p 2 units pRBC on 11/19 and 11/21 - EGD on 11/21 w AVM cauterized - Hgb has since improved, 9.1 today, no evidence of continued bleed - Hold aspirin, consider Eliquis - Famotidine 20 mg PO BID - CBC QAM #Elevated Hemidiaphragm #Left Lung Mass #Possible Aspiration Pneumonia - 7cm elevation on initial and repeat CXR - CT chest: 7.5 cm medial left upper lobe mass w/ occlusion of left upper lobe bronchus, bronchitis, 1cm RLL density, small left pleural effusion with LLL compressive atelectasis - Consider lung mass in setting of 15 pounds of unexplained weight loss since 11/19, and tobacco abuse - CXR from [place] 1 month prior does not make note of lung mass - CXR 11/26: Slightly improved bilateral infiltrates, small pleural effusions, stable left hilar mass - Serology: Legionella, MRSA Nares, Bcx x2, urine cx, sputum sample all negative - Echocardiogram 11/22: EF: 55-60%, severe pulmonary HTN, severe hypokinesis inferolateral and basal anterolateral juarez - Continue cefdinir 300mg po bid - Continue COPD maintenance medications: Ipratropium 0.5 mg nebulized QID; Budesonide 0.5 mg BID, Nebs Q2H PRN - Speech Therapy consulted for swallowing evaluation: unable to complete per patient refusal - Pulmonology recommend outpatient CXR f/u and bronchoscopy at tertiary center due to complicated cardiac status #Delirium - aware and advised on reorientation and distraction efforts - Likely to continue during admission and for weeks after discharge - Keep room lighting consistent to mirror circadian rhythm - Irritated by constant orientation questions, refuses to answer today; fluctuating delirium - Light in the morning - Dark in the night #Paroxysmal Atrial Fibrillation - Hold warfarin - Plan to transition to DOAC - Continue metoprolol succinate 12.5 mg PO daily - Consider titrated metroprolol back to 50 mg following Hb stabilization - Consider non-compliance discussion (noted by grandson) #Chronic Conditions - Anxiety: continue home lorazepam and added paroxetine - Diabetes: continue home insulin regimen DVT Prophylaxis: SCD Dispo: Med Admission and Anticipated Discharge Date Admission Date: November 19, 2024 Supervising Physician Co-Signing Physician Notes Attending attestation Pt seen and examined in concert with Dr. Ribera. In agreement with the documented findings as noted in the resident documentation with any exceptions or additions as noted here. Awake and interactive, without acute complaint at bedside. Still engaged and open to rehab services. Spouse is no longer as desirous of procedural intervention by pulmonology, willing to consider at outpatient follow up. VS as noted, on examination, S1/S2 nl RRR no MCG. CTAB. Abd NT/ND BS+ve Acute GI bleed with anemia s/p 2U PRBC - d/w GI re: restart anticoagulation (apixaban) and timing from AVM cautery. Approach goals of care conversation tomorrow. Trend hgb daily Lung mass w/ concern for overlying PNA - continue cefdinir therapy and complete course. Pulmonology aware and recommends follow up in outpatient tertiary center for further evaluation of mass if desired. Else see resident documentation as noted. Subjective Patient reports feeling well today. Has been eating and drinking. Has not been out of bed. Denies dizziness, lightheadedness. Review of Systems 2 Review of Systems: As per HPI. Physical Exam 2 Physical Exam: Gen: NAD, WD/WN HEENT: NCAT, MMM CV: RRR, no m/r/g appreciated Resp: CTAB, symmetrical chest rise, breathing non-labored Abd: Soft, NT/ND, +BS Skin: Warm, dry, pink, no rashes or lesions noted Neuro: AOx3, CN II-XII grossly intact Psych: Mood-affect congruent. Speech pace and content normal. Poor insight. Results & Data Results & Data Vital Signs (Past 12 Hours) Vital Signs Temp Pulse Pulse Resp BP BP Pulse Ox 11/27/24 03:30 37.2 C 110 H 20 121/58 L 92 11/27/24 02:37 11/26/24 23:36 116 H 11/26/24 22:28 37.0 C 109 H 16 145/83 H 90 11/26/24 19:14 36.7 C 106 H 18 147/98 H 94 O2 Del Method 11/27/24 03:30 Room Air 11/27/24 02:37 Room Air 11/26/24 23:36 11/26/24 22:28 Room Air 11/26/24 19:14 Room Air Laboratory Results 11/27/24 05:33 11/27/24 05:33 Resident Activity Tracking Resident Involvement: Resident Care Provided Care Provided: Adult Hospital Medicine
[2024-11-27] MEDS: SODIUM CHLORIDE 0.9% 500 ML IV ONE ×2 (14:32→16:19)
[2024-11-27] MEDS: LANTUS PER UNIT CHARGE SQ SCH (22:06)
[2024-11-28 06:37] LABS: Hematocrit (blood only) 29.4 % (37.0-47.0); Mean Corpuscular Hgb Conc 30.6 g/dL (32.0-36.0); Mean Platelet Volume 10.8 fL (9.4-12.4); Platelet Count 289 K/uL (130-400); RDW Coefficient of Variation 14.6 % (11.5-14.5); RDW Standard Deviation 45.2 fL (36.4-46.3); Red Blood Count 3.46 M/uL (4.20-5.40); White Blood Count 9.19 K/ul (4.8-10.8)
--- NOTE | 2024-11-28 07:02 | Hospitalist Progress Note ---
Date of Service November 28, 2024 Assessment & Plan (1) Acute gastrointestinal bleeding: (2) Elevated hemidiaphragm: (3) Anemia: (4) Angiodysplasia of gastrointestinal tract: (5) Mass of left lung: (6) Tobacco abuse: (7) Aspiration pneumonia: (8) Chronic heart failure with preserved ejection fraction: (9) Pulmonary hypertension: Plan Hawa is an 79 year old female with history of HFpEF (most recent echo: 55% on 11/22), atrial fibrillation on warfarin (most recent INR on 11/20 was 1.1) anemia, anxiety, diabetes, and significant smoking history who presented with dizziness, weakness, and was admitted with concern for continued anemia. #Acute Gastrointestinal Bleeding - resolved #Acute Blood Loss Anemia - resolved - Melena for 10 days prior to ED arrival - Hb 7.2 on admission, low 7's and dipped to 6.8 - status post 2 units pRBC: one unit on 11/19 and one unit on 11/21 - INR 7.72 (11/18) --> warfarin reversal and IV vit. K, repeat INR: 1.1 (11/20) - EGD on 11/21 w AVM cauterized - Hgb has since improved and remained stable, 9.0 today, no evidence of continued bleed - Apixaban 5 mg PO BID (11/28) - GI approved restarting anticoagulation - Famotidine 20 mg PO BID - CBC qAM #Elevated Hemidiaphragm #Left Lung Mass #Possible Aspiration Pneumonia - 7cm elevation on initial and repeat CXR - CT chest: 7.5 cm medial left upper lobe mass w/ occlusion of left upper lobe bronchus, bronchitis, 1cm RLL density, small left pleural effusion with LLL compressive atelectasis - Consider lung mass in setting of 15 pounds of unexplained weight loss since 11/19, and prolonged tobacco use - CXR from [place] 1 month prior does not make note of lung mass - CXR 11/26: Slightly improved bilateral infiltrates, small pleural effusions, stable left hilar mass - Microbiology: Legionella, MRSA Nares, Blood cultures x2, urine culture, sputum sample - all negative - Echocardiogram 11/22: EF: 55-60%, severe pulmonary hypertension, severe hypokinesis inferolateral and basal anterolateral juarez - Cefdinir 300mg po bid continues through 12/01 - Continue COPD maintenance medications: Ipratropium 0.5 mg nebulized QID; Budesonide 0.5 mg BID, Nebs Q2H PRN - Speech Therapy consulted for swallowing evaluation: unable to complete per patient refusal - Pulmonology recommend outpatient CXR f/u and bronchoscopy at tertiary center due to complicated cardiopulmonary status #Delirium - aware and advised on reorientation and distraction efforts - Likely to continue during admission and for weeks after discharge - Keep room lighting consistent to mirror circadian rhythm - Irritated by constant orientation questions, refuses to answer today; fluctuating delirium - Light in the morning - Dark in the night #Paroxysmal Atrial Fibrillation - Hold warfarin - Transitioned to apixaban 5 mg PO BID - GI approves stating anticoagulation again - Continue metoprolol succinate 12.5 mg PO daily - Consider titrated metroprolol back to 50 mg following Hb stabilization - Consider non-compliance discussion (noted by grandson) #Chronic Conditions - Anxiety: continue home lorazepam and added paroxetine - Diabetes: continue home insulin regimen DVT Prophylaxis: SCD Dispo: plan for acute rehab Admission and Anticipated Discharge Date Admission Date: November 19, 2024 Supervising Physician Co-Signing Physician Notes Attending attestation Pt seen and examined in concert with St. Dr. Bonner and Dr. Ribera. In agreement with the documented findings as noted in the resident documentation with any exceptions or additions as noted here. Awake and interactive, without acute complaint at bedside. Extensive conversation today re: anticoagulation risks/benefits and preference for DOAC over warfarin. Reviewed decisionmaking re: deferring bronchoscopy to outpatient which suits her fine as she would very much like to go to rehab. VS as noted, on examination, S1/S2 nl IRR/IRR. CTAB. Abd NT/ND BS+ve Acute GI bleed with anemia s/p 2U PRBC - Trend hgb daily and monitor for sx of bleeding AF - BP is stable but still low, HR remains mildly elevated. Will continue metoprolol at present dose and escalate to 25mg daily if HR remains elevated or when BP improves. Will start apixaban. Lung mass w/ concern for overlying PNA - continue cefdinir therapy and complete course tomorrow. Pulmonology aware and recommends follow up in outpatient tertiary center for further evaluation of mass if desired. Else see resident documentation as noted. Subjective Hawa was seen this afternoon with Dr. Ribera and Dr. Hernandez. She stated that she was doing all right. She was curious about and updated regarding her antibiotic course and tentative discharge planning. Hawa inquired about her hospital course as some pieces she could not recall. She was oriented to the timeline of her stay along with specific events why she inquired further. She stated that she wanted to go to rehab and did not want a lung biopsy to interfere with her rehab stay. She noted she felt well enough to walk and would like to work with PT to encourage her to walk without pushing her too hard. Lastly, she was updated regarding blood thinners (e.g., warfarin vs. apixaban). She indicated that prior to this admission she was typically in the therapeutic range without difficulty; however, with a DOAC she would not need routine blood work. Otherwise, she had no further questions, comments, or concerns. Review of Systems 2 Review of Systems: As per HPI. Physical Exam 2 Constitutional: Lying in bed, with inability to find a comfortable position during interaction In no apparent distress Respiratory: Lungs are clear to auscultation with diminished bibasilar lung sounds Respiratory effort and rate appropriate No accessory respiratory muscle use appreciated Conversational without difficulty Cardiovascular: Tachycardic S1 and S2 appreciated Results & Data Results & Data Vital Signs (Past 12 Hours) Vital Signs Temp Pulse Pulse Resp BP Pulse Ox O2 Del Method 11/28/24 02:52 36.3 C L 95 H 18 121/69 90 Room Air 11/27/24 23:23 36.7 C 77 18 106/58 L 90 Room Air 11/27/24 21:46 93 H 11/27/24 19:48 36.9 C 92 H 18 106/51 L 92 Room Air Laboratory Results 11/28/24 05:33 11/28/24 05:36 Intake & Output 11/26/24 11/27/24 11/28/24 11/29/24 06:59 06:59 06:59 06:59 Intake Total 160 / 160 500 / 500 1360 / 1360 Output Total 1600 / 1600 1301 / 1301 1100 / 1100 Balance -1440 / -1440 -801 / -801 260 / 260 Weight 71 kg 71.3 kg 69.989 kg Resident Activity Tracking Resident Involvement: Resident Care Provided Care Provided: Adult Hospital Medicine Resident Supervision Co-Signing Physician Notes I also saw the patient and confirmed eli portions of the history and exam. I agree with the assessment and plan as written by student Dr. Bonner and any changes or additions are summarized as follows: Patient doing well today, open to discussion about anticoag and outpt bronch. Reiterates desire for acute rehab. AFVSS except intermittent tachy to 100s. Heart rrr, no m/r/g. Lungs CTAB, normal WOB. Abd soft, NT/ND, +BS GIB - s/p AVM cauterization, Hgb stable, no sign of active bleed; okay'd by GI to restart anticoag Lung mass - pt accepting of outpatient CXR & bronchoscopy at tertiary center Afib - start Eliquis 5mg BID tonight, continue metoprolol 12.5mg daily Brielle Ribera MD PGY-1, [facility]
[2024-11-28 09:26] LABS: Calcium 8.6 mg/dl (8.6-10.3); Creatinine Clr Calc Pharmacy 34.2 ml/min; Potassium 4.1 mmol/L (3.5-5.1)
--- NOTE | 2024-11-28 14:03 | Pharmacy Report ---
Pharmacy Glycemic Short Note 2 - Date of Service November 28, 2024 - Glycemic Short BSG Results (Last 24 hours): 11/27/24 11/27/24 11/27/24 16:20 20:22 20:29 Glucose POC Glucose 227 H 59 L* 76 11/27/24 11/28/24 11/28/24 20:49 05:36 07:12 Glucose 158 H POC Glucose 120 H 173 H 11/28/24 11:08 Glucose POC Glucose 167 H OUTPATIENT ANTIDIABETIC REGIMEN: * Lantus 8 units SC HS * Humalog SC AC - Carb ratio of 10 for breakfast and lunch and 19 for dinner * HbA1c: 8% (11/20/24) ASSESSMENT: 11/28 * BSGs [phone] mg/dL yesterday- 14 units of bolus insulin/8 units of basal * Hypoglycemia possibly d/t too tight of correction factor- both CF and CR loosened and goal range adjusted to prevent further hypoglycemia * Fasting 173 mg/dL today- continue with current basal dose 11/22: * Effects of dexamethasone administered 11/20 likely wearing off over the course of the day today. Patient now NPO * Will reduce Lantus and resume at home dose/regimen * Will loosen Novolog to weight-based moderate stress estimate, which is similar to home CHO ratio (except dinner). 11/21: * Patient received 24 units of insulin yesterday, 5 of which was basal. BSGs were: [phone] mg/dL. * Fasting BSG this AM is elevated at 328 mg/dL. During endoscopy last evening, there was a vial of 4 mg IV Dexamethasone that was pulled from the [facility] and never returned. It is not documented as given by nursing but with significant increases in BSGs, believe this was administered during EGD. * Will tighten Novolog to reflect weight/stress of 3. Adding a one time basal dose of 5 units this AM and will increase HS basal dose to match home dose of 8 units. This is more than double the previous day's basal dose. Will reassess basal needs tomorrow AM as steroids start to wean off. 11/20: * 79 year old admitted with GI bleed, plan for EGD today. Started on protonix drip. Pharmacy consulted for glycemic management. BSGs >300 last evening. Received total of 20 units of insulin yesterday, of which 8 units were basal insulin. Fasting BSG 226 mg/dL, anticipate BSGs to trend down today with ongoing NPO status. Will continue same parameters for now. PLAN FOR INPATIENT GLYCEMIC CONTROL: * Basal insulin * Lantus 8 units SC HS * Bolus insulin * NovoLog per scale ACHS or Q6hrs while NPO * Goal Range: Low 110 mg/dL - High 140 mg/dL * Correction Factor: 40 mg/dL/unit * Nutritional / Prandial insulin per carb ratio of 1 unit per 10 grams CHO consumed
[2024-11-28 20:42] VITALS: RESP 18
[2024-11-28] MEDS: APIXABAN 5 MG TABLET PO SCH (22:09)
[2024-11-29 06:45] LABS: Hematocrit (blood only) 29.7 % (37.0-47.0); Hemoglobin 9.3 g/dl (12.0-16.0); Mean Corpuscular Hemoglobin 26.1 pg (25.0-34.0); Mean Corpuscular Hgb Conc 31.3 g/dL (32.0-36.0); Mean Corpuscular Volume 83.4 fL (80.0-100.0); Mean Platelet Volume 10.8 fL (9.4-12.4); Platelet Count 303 K/uL (130-400); RDW Coefficient of Variation 14.6 % (11.5-14.5); RDW Standard Deviation 44.6 fL (36.4-46.3); Red Blood Count 3.56 M/uL (4.20-5.40); White Blood Count 9.85 K/ul (4.8-10.8)
[2024-11-29 07:01] LABS: BUN Creatinine Ratio 14.2 (10-20); Calcium 8.8 mg/dl (8.6-10.3); Creatinine Clr Calc Pharmacy 37.4 ml/min; Potassium 3.7 mmol/L (3.5-5.1)
--- NOTE | 2024-11-29 09:32 | Hospitalist Progress Note ---
Date of Service November 29, 2024 Assessment & Plan (1) Acute gastrointestinal bleeding: (2) Elevated hemidiaphragm: (3) Anemia: (4) Angiodysplasia of gastrointestinal tract: (5) Mass of left lung: (6) Tobacco abuse: (7) Aspiration pneumonia: (8) Chronic heart failure with preserved ejection fraction: (9) Pulmonary hypertension: Plan Hawa is an 79 year old female with history of HFpEF (most recent echo: 55% on 11/22), atrial fibrillation on warfarin (most recent INR on 11/20 was 1.1) anemia, anxiety, diabetes, and significant smoking history who presented with dizziness, weakness, and was admitted with concern for continued anemia. #Acute Gastrointestinal Bleeding - resolved #Acute Blood Loss Anemia - stable Melena prior to arrival, s/p 2 units pRBC, s/p vit K reversal, EGD on 11/21 with AVM cauterized Famotidine 20 mg PO BID CBC qAM #Elevated Hemidiaphragm #Left Lung Mass #Possible Aspiration Pneumonia Lung mass with postobstructive pneumonia; cefdinir 300 mg PO BID (through 12/01) Severe pulmonary hypertension; outpatient bronchoscopy at tertiary center Ipratropium 0.5 mg nebulized QID; Budesonide 0.5 mg BID, Nebs Q2H PRN #Paroxysmal Atrial Fibrillation Transitioned to apixaban 5 mg PO BID; GI approved Metoprolol succinate 12.5 mg PO QD; may titrated up if BP allows #Delirium Keep room lighting consistent to mirror circadian rhythm; distraction and reorientation efforts #Chronic Conditions Anxiety: continue home lorazepam and added paroxetine Diabetes: continue home insulin regimen DVT Prophylaxis: SCD Dispo: plan for acute rehab Admission and Anticipated Discharge Date Admission Date: November 19, 2024 Supervising Physician Co-Signing Physician Notes Attending attestation Pt seen and examined in concert with St. Dr. Bonner and Dr. Ribera. In agreement with the documented findings as noted in the resident documentation with any exceptions or additions as noted here. Awake and interactive, without acute complaint at bedside. Reviewed concerns re: [employer]END[employer] and agreeable to repeat evaluation for dietary advancement. Reaffirmed restart AC w/ DOAC and follow up outpatient if desired for further evaluation of ALCON mass VS as noted, on examination, S1/S2 nl IRR/IRR. CTAB. Abd NT/ND BS+ve AF - BP is stable but still low, HR remains mildly elevated. Will d/c amlodipine and increase metoprolol for improved rate control. Continue apixaban. Acute GI bleed with anemia s/p 2U PRBC - Trend hgb daily and monitor for sx of bleeding Lung mass w/ concern for overlying PNA - continue cefdinir to 12/01. Pulmonology aware and recommends follow up in outpatient tertiary center for further evaluation of mass if desired. Else see resident documentation as noted. Sandra Shaikh was seen this morning. She states she is doing all right. Remains eager to leave. Her symptoms have remained unchanged, with shortness of breath with exertion (e.g., working with physical therapy), but otherwise has no concerns. Review of Systems Review of Systems: Per HPI Physical Exam Physical Exam: Constitutional: Lying comfortably in bed; In no apparent distress Respiratory: Lungs are clear to auscultation, with diminished bibasilar lung sounds; Conversational without shortness of breath; No accessory respiratory muscle use; Respiratory rate and effort appropriate Cardiovascular: Regular rate and irregular rhythm; S1 and S2 appreciated; No rubs, murmurs, or gallops noted Results & Data Results & Data Vital Signs (Past 12 Hours) Vital Signs Temp Pulse Resp BP Pulse Ox O2 Del Method 11/29/24 07:18 36.9 C 90 18 123/54 L 93 Room Air 11/29/24 03:08 36.6 C 92 H 18 126/48 L 93 Room Air 11/28/24 21:54 36.8 C 100 H 18 149/66 H 93 Room Air Resident Activity Tracking Resident Involvement: Resident Care Provided Care Provided: Adult Hospital Medicine Resident Supervision Co-Signing Physician Notes I also saw the patient and confirmed eli portions of the history and exam. I agree with the assessment and plan as written by Student Dr. Bonner and any changes or additions are summarized as follows: Patient feeling well today, did well with PT yesterday. Only complaint is about her diet. AFVSS. Heart rrr, no m/r/g. Lungs CTAB, normal WOB. Abd soft, NT/ND, +BS GIB - s/p AVM cauterization, Hgb stable (9.3 today), no sign of active bleed; GI approved anticoag Lung mass - pt accepting of outpatient CXR & bronchoscopy at tertiary center Afib - continue metoprolol 12.5mg daily, Eliquis 5mg bid started yesterday PM Plan for repeat swallow study to advance diet. Waiting to hear from [facility]. Brielle Ribera MD PGY-1, [facility]
[2024-11-30 05:57] LABS: Hemoglobin 8.9 g/dl (12.0-16.0); Mean Corpuscular Hemoglobin 25.8 pg (25.0-34.0); Mean Corpuscular Hgb Conc 30.7 g/dL (32.0-36.0); Mean Corpuscular Volume 84.1 fL (80.0-100.0); Mean Platelet Volume 10.9 fL (9.4-12.4); Platelet Count 313 K/uL (130-400); RDW Coefficient of Variation 14.8 % (11.5-14.5); RDW Standard Deviation 45.5 fL (36.4-46.3); Red Blood Count 3.45 M/uL (4.20-5.40); White Blood Count 9.55 K/ul (4.8-10.8)
[2024-11-30 06:05] LABS: BUN Creatinine Ratio 12.8 (10-20); Calcium 8.6 mg/dl (8.6-10.3); Creatinine Clr Calc Pharmacy 35.9 ml/min; Potassium 3.8 mmol/L (3.5-5.1)
[2024-11-30 07:20] VITALS: TEMP 98.2
--- NOTE | 2024-11-30 08:10 | Discharge Summary ---
Date of Service November 30, 2024 Admission HPI Per Admitting Provider Hawa Ceja is an 79 year old female who presents to the ER with black stool for the past 10 days. History limited to patient recollection and discharge instructions from [place] as she is new to our system. She reports not worsening during the last 10 days. She has had severe associated belching for the last 2 months. She was hospitalized at [facility] in October with belching and chest pain and discharged on October 14 with pantoprazole and sucralfate. She was also started on amlodipine presumably for high BP. No records available on admission from this visit. She reports being somewhat compliant with pantoprazole but also thought this made her belching worse. She did not have any blood transfusions. She was hospitalized in [place] from November 14- for tachycardia and diagnosed with anxiety. She was started on Paxil for the anxiety although she reports never actually getting this in the hospital and she is yet to pick it up from the pharmacy as they do not have it in stock. She was previously on metoprolol succinate 50mg PO daily although her grandson says she has a propensity to stop medications when she thinks she is getting side effects from them. She was discharged on metoprolol 12.5mg PO daily from [place] although notably not being given this on her last day of admission due to hypotension. On day of discharge her hemoglobin was 8.2 and INR 6.4. She doesn't remember the anemia being addressed and on talking to her grandson who is a physician about still not feeling well and having this hemoglobin he advised her on going back to the hospital today. She reports her INR was 7.72 yesterday. She notes a history of needing blood transfusions at [facility] 3 years ago. She had upper and lower endoscopies at that time but no bleed was found. She thinks she was given 2 units of blood at that time. She also notes a history of heart failure for which she takes furosemide. She takes lorazepam chronically for anxiety. Trials of SSRIs in the past caused gastrointestinal side effects. Although she has done ok on paroxetine previously up until she went through withdrawal with it and trials of restarting previously led to worsening dizziness. The new medication is an extended release. She also has a chronic diabetic ulcer on her foot but reports this is improving. Her grandson notes historically her diabetes had been uncontrolled up until this last year. Under wound care in [place]. She takes warfarin for paroxysmal atrial fibrillation but no recent episodes. She takes aspirin for CAD with prior CABG in 2018 Admission Exam Per Admitting Provider Constitutional: WD/WN, vitals as above ENMT: external ear and nose normal, oropharynx normal Respiratory: normal respiratory effort, lungs clear to auscultation Cardiovascular: Rate/Rhythm: regular rhythm and + tachycardic Heart Sounds: no murmur Extremities: normal capillary refill; no calf tenderness and no pedal edema Gastrointestinal (Abdomen): Inspection/Auscultation: abdomen normal to inspection; abdomen not distended Percussion/Palpation: + abdomen tender (epigastric) and abdomen soft; no guarding and abdomen not rigid Musculoskeletal: no cyanosis or clubbing, extremities motor strength 5/5 Skin: no rashes, warm and dry Neurologic: moves all extremities and awake; not confused Psychiatric: A+Ox3, euthymic affect Principal Diagnosis Anemia, GIB Discharge Exam Gen: NAD, WD/WN HEENT: NCAT, MMM CV: RRR, no m/r/g appreciated Resp: CTAB, symmetrical chest rise, breathing non-labored Abd: Soft, NT/ND, +BS Skin: Warm, dry, pink, no rashes or lesions noted Psych: Mood-affect congruent. Speech pace and content normal Discharge Data Allergies Allergy/AdvReac Type Severity Reaction Status Date / Time Sulfa (Sulfonamide Allergy Severe Difficulty Verified 11/22/24 09:29 Antibiotics) Swallowing atorvastatin [From Lipitor] Allergy Intermediate Muscle Pain Verified 11/22/24 09:29 Penicillins Allergy Intermediate Rash Verified 11/22/24 09:29 diazepam [From Valium] Allergy Unknown Unknown Verified 11/22/24 09:29 gentamicin Allergy Unknown Unknown Verified 11/22/24 09:29 levofloxacin Allergy Unknown Unknown Verified 11/22/24 09:29 linezolid Allergy Unknown Unknown Verified 11/22/24 09:29 azithromycin [From Zithromax] AdvReac Intermediate Nausea Verified 11/22/24 09:29 codeine AdvReac Intermediate Confusion Verified 11/22/24 09:29 sertraline [From Zoloft] AdvReac Intermediate Nausea Verified 11/22/24 09:29 muscle relaxant AdvReac Severe Hallucinati Uncoded 11/22/24 09:29 ng Consultations 11/19/24 13:36 ED Decision to Admit Stat 11/19/24 21:25 Consult Gastroenterology Routine 11/21/24 17:45 Consult Pulmonology Routine 11/22/24 12:06 Consult Cardiology Routine 11/23/24 15:38 Consult Anesthesiology Routine Procedures Performed EGD 11/20/24 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 Ordered Studies 11/30/24 05:33 11/30/24 05:33 11/20/24 17:09 CT Abd and Pelvis [CT abd pelvis oral con only] Routine CT chest diagnostic wo con Routine 11/26/24 11:58 CT chest diagnostic wo con Routine Hospital Course (1) Acute gastrointestinal bleeding: (2) Elevated hemidiaphragm: (3) Anemia: (4) Angiodysplasia of gastrointestinal tract: (5) Mass of left lung: (6) Tobacco abuse: (7) Aspiration pneumonia: (8) Chronic heart failure with preserved ejection fraction: (9) Pulmonary hypertension: Silva Shaikh is an 79 year old female with history of HFpEF (most recent echo: 55% on 11/22), atrial fibrillation on warfarin (most recent INR on 11/20 was 1.1) anemia, anxiety, diabetes, and significant smoking history who presented with dizziness, weakness, and was admitted with concern for continued anemia. #Acute Gastrointestinal Bleeding #Acute Blood Loss Anemia - Melena for 10 days prior to ED arrival; Hb 7.2 on admission, low of 6.8 - INR 7.72 (11/18) --> warfarin reversal and IV Vit K; repeat INR: 1.1 (11/20) - s/p 2 units pRBC on 11/19 and 11/21 - EGD on 11/20 w AVM cauterized; Hgb since improved, stably ~9 (8.9 at discharge) - Aspirin was held. Did not resume warfarin; Started Eliquis 5mg bid after approval from GI - Famotidine 20 mg PO BID #Elevated Hemidiaphragm #Left Lung Mass #Possible Aspiration Pneumonia - Initial CXR showed 7cm elevation; Repeat CXR w slightly improved bilateral infiltrates, small pleural effusions, stable left hilar mass - CT chest: 7.5 cm medial left upper lobe mass w/ occlusion of left upper lobe bronchus, bronchitis, 1cm RLL density, small left pleural effusion with LLL compressive atelectasis - Consider lung mass in setting of 15 pounds of unexplained weight loss since 11/19, and tobacco abuse - CXR from [place] 1 month prior did not note this lung mass - Serology: Legionella, MRSA Nares, Bcx x2, urine cx, sputum sample all negative - Echocardiogram 11/22: EF: 55-60%, severe pulmonary HTN, severe hypokinesis inferolateral and basal anterolateral juarez - Given IV Ceftriaxone 11/22-; meropenem + doxy 11/24-11/26; cefdinir past 3 days; needs 1 more day cefdinir 300mg po bid to complete 10-day abx course - Kept on COPD maintenance medications: Ipratropium 0.5 mg nebulized QID; Budesonide 0.5 mg BID, Nebs Q2H PRN - Speech Therapy consulted for swallowing evaluation: recommended easy to chew diet IDDSI 7 with thin liquids - Pulmonology recommend outpatient CXR f/u and bronchoscopy at tertiary center due to complicated cardiac status #Paroxysmal Atrial Fibrillation - Warfarin reversed; started Eliquis 5mg po bid on 11/28 PM - Continued metoprolol succinate 12.5 mg PO daily #Delirium - was advised on reorientation and distraction efforts - Informed this is likely to continue for weeks after discharge - Maintained delirium precautions throughout admission, e.g.: - Room lighting consistent with circadian rhythm - Reduce distractions, environmental triggers #Chronic Conditions - Anxiety: continued home lorazepam and added paroxetine - Diabetes: continued home insulin regimen Total Time Total Time Spent Total Time Spent (In Minutes): See attending documentation Discharge Plan Discharge Items Patient Disposition: Transfer Inpatient Rehab Fac Reason For Visit: ACUTE GI BLEED,ACUTE BLOOD LOSS ANEMIA Discharge Diagnosis: Anemia, GI bleed Condition on Discharge: Serious Activity: Per Instructions section Non-emergency contact: Primary Care Provider and [employer] Call non-emergency contact if: you have any medication questions and your symptoms worsen Follow-up/Referrals: LESLIE BANERJEE [Other] Diet: Carb Consistent or DM2 Diet Texture: Easy to Chew Addtl Attending Provider Instructions: You were admitted to the hospital for anemia, and it was determined the anemia was due to acute blood loss from a GI bleed. Our gastroenterology team was consulted. They performed an EGD (on 11/21) and cauterized an AVM (arteriovenous malformation) that was likely the source of the bleeding. After this procedure, your hemoglobin stabilized. During admission, you were also found to have a lung mass (on the left, measuring approximately 7.5 cm). You were assessed by pulmonology and they will continue your care outpatient. Your medication list has been reviewed and reconciled, and an updated list is included with your hospital discharge paperwork. Please review this list closely, and make note of any changes. We stopped your warfarin. Hold aspirin until discussion with PCP or GI. We started apixaban (Eliquis). Take one 5mg tablet twice daily. You will continue Metoprolol at a higher does: take one 25mg tab every morning. You have completed 9 days of a 10-day course of antibiotics. Take cefdinir 3 00mg tonight and tomorrow (12/01) morning to complete course. Take your medications as instructed; do not skip a dose. Make sure all of your doctors know every medicine you are taking (including [id number] medicines, vitamins, and supplements). Call your PCP before taking any new medicines because some of these may interact with your current medications, or may make your symptoms worse. Follow-up appointments: Make a follow-up appointment with your PCP within the next week. It is very important that you follow up with them shortly after discharge from the hospital. You will need to follow up with pulmonology and have a bronchoscopy and further imaging performed outpatient. If you have any questions, you can contact them at _. Keep all your follow-up appointments as already scheduled. If you cannot make an appointment, notify your provider. Please bring a copy of this discharge summary with you to your next office appointment so that your provider can review it at that time and stay updated on your hospitalization and potential changes in your care. Contact your PCP if your symptoms return or worsen. Call 911 or go to the ER if you experience any of the following: Sudden, severe abdominal pain or nausea/vomiting Severe chest pain, or chest pain that radiates (moves) to your jaw or arm Sudden, severe shortness of breath or difficulty breathing Thank you for allowing us to participate in your care. Pending Studies at Discharge: No Stand-Alone Forms: My [facility] Skilled Items Patient informed of condition?: Yes DNR: No Discharge Level of Care: Acute rehab Communicable Disease: No Discharge Prognosis: Improving Lines: None Urinary Catheter: No Medications and DC Order Prescriptions: New Eliquis 5 mg Tablet 5 mg PO BID 30 Days Qty: 60 0RF metoprolol succinate 25 mg Tablet Extended Release 24 Hr 25 mg PO QAM 30 Days Qty: 30 0RF cefdinir 300 mg Capsule 300 mg PO BID 1 Days Qty: 2 0RF Continued potassium chloride 10 mEq capsule, extended release 10 meq PO BID furosemide 40 mg tablet 40 mg PO QAM lorazepam 1 mg tablet See Rx Instructions .ROUTE .COMPLEX Rx Instructions: Take 0.5mg w/ 1mg to equal 1.5mg by mouth TID insulin glargine [Lantus Solostar U-100 Insulin] 100 unit/mL (3 mL) insulin pen 8 unit subcut QPM insulin lispro [Humalog KwikPen Insulin] 100 unit/mL insulin pen See Rx Instructions subcut .COMPLEX Rx Instructions: use as directed lorazepam 0.5 mg tablet See Rx Instructions .ROUTE .COMPLEX Rx Instructions: Take 0.5mg w/ 1mg to equal 1.5mg by mouth TID Held aspirin 81 mg Tablet,Delayed Release (Dr/Ec) 81 mg PO QAM Hold Instructions: Resume on 12/08/24. Hold until discussion with PCP or GI Discontinued metoprolol succinate 25 mg tablet extended release 24 hr 12.5 mg PO QAM warfarin [Jantoven] 3 mg tablet See Rx Instructions .ROUTE .COMPLEX Rx Instructions: As of 11/19/24 medication is on hold, previously pt was taking 3mg by mouth /Wed/Wed/Sat/Sun warfarin 4 mg tablet See Rx Instructions .ROUTE .COMPLEX Rx Instructions: As of 11/19/24 medication is on hold, previously pt was taking 4mg by mouth Wednesday and Discharge Orders: Discharge Order (Routine); Ordered 11/30/24 Ordered By: Brielle Lewis/Other Patient Handouts: High Blood Sugar (Hyperglycemia), Managing Type 2 Diabetes Admission Data Admit Date/Time: 11/19/24 13:47 Attending Provider: Jeffry Hernandez Admit Provider: Jared Oliver Primary Care Provider: Leslie Banerjee Other Providers: Jared Oliver; Miguelangel Jackson I; Roger Canseco; Ishaan Rivera; Harpal Garcia; Vinny Stover; Almas Pollack; Blaine Armas; Miguel Angel Mari Jr; Justin Zapata; Khadra Chavez; Heather Perry; Jeffry Patrick; Jeffry Salazar; Arsenio Zaragoza; Evelyn Enriquez; Dexter Abad; Kelly Escalante; Nnamdi Calderón; Dexter Rutledge; Michel Wright; Nain Reilly; [facility]; Nikkie Massey; Myriam Schwarz; Annette Abernathy; Rosalinda Saha; Patel Sharma; Mehul Isaac; Dexter Love; Matthew Brand; Evelyn Degroot; Cody Parikh; Steve Shah; Junior Duarte; Kathleen Eid; Santino Umanzor; Brigitte Umanzor; Sanket Nunez; Melody Ryan; Esteban Mccoy.; Kemi Quezada; Martita Prado; Dominguez Wills; Tamy Garcia; Radha Bee A; Lizz Pennington; Sheila Brito A; Romario Brito V; Luisito Quarles; Myriam Yo; Lyle Alberts; Yarely Pacheco; Romario Brown; Levon Eid; Daniel Low; Cee Auguste; Prachi Dominguez; Romario Whitaker; Watson Jackson.; Bibi Bae; Jim Mabry; Chiqui Schulz; Alem Carias; Almas Jay; David Novoa; Rhonda Blair; Dexter Yates; Nissa Anthony; Radha Hutchison; Roberto Prado; Jeffry Mccracken; Patel Mendoza Jr; Edel Napoles; Nichole Sheridan; Veronique Majano; Dominguez Puckett; Kevyn Guzman; Oralia Smith; Nichole Rico; Mike Castellano; Lamont Eisenberg; Lexx Car; Asad Maguire; Sara Sutton; Ej Schaffer; Kenzie Monte; Janice Mata; Calli Mares; Rose Joyner; Brennan Gonzalez Jr; Nela Brooks; Tamy Alston; Naun Adams Other Interventions: Discharge Summary Assessment (RN) Last Done: 11/30/24 10:05 Supervising Physician Co-Signing Physician Notes Attending attestation Pt seen and examined in concert with Dr. Ribera. In agreement with the documented findings as noted in the resident documentation with any exceptions or additions as noted here. Awake and interactive, without acute complaint at bedside. Revisited plans re: restart AC w/ DOAC and follow up outpatient if desired for further evaluation of ALCON mass VS as noted, on examination, S1/S2 nl IRR/IRR. CTAB. Abd NT/ND BS+ve AF - BP and HR stable/controlled on metoprolol at 25mg daily. Tolerating transition from warfarin to apixaban and will continue on discharge. Acute GI bleed with anemia s/p 2U PRBC - stable H/H on apixaban. Would recommend repeat as outpatient, precautions reviewed re: melena, hematochezia Lung mass w/ concern for overlying PNA - continue cefdinir to 12/01. Pulmonology aware and recommends follow up imaging for changes/resolution consider improvement with treatment of PNA and then outpatient tertiary center for further evaluation with bronchoscopy as desired. Else see resident documentation as noted. Total attending physician time spent with this patient's care on the day of discharge: 35 minutes. Resident Activity Tracking Resident Involvement: Resident Care Provided Care Provided: Adult Hospital Medicine
[2024-11-30] MEDS: METOPROLOL SUCC 25MG EXT REL TAB PO SCH (08:11)
[2024-11-30 10:49] VITALS: BP 157/74; O2SAT 96
[2024-11-30 11:19] VITALS: PULSE 141
== END 2024-11-30 13:09 | DRG 377 ==
LOC: ED 11:58 → 2S 13:47 → SUATTDRO 13:47 → 2S 16:14 → 2E 11-21 09:05